=== PATIENT | female | born 1965 | race Caucasian/White ===

== ENCOUNTER 2016-11-08 00:27 | Inpatient (IN) | payer OTHER ==
[2016-11-08 00:41] LABS: Glucose,Whole Blood 124 mg/dL (75-99)
[2016-11-08] MEDS: LORazepam 2 MG/ML SYRINGE IV STA ×2 (00:45→00:48)
--- NOTE | 2016-11-08 01:23 | ED ---
Altered Mental Status HPI - General Chief Complaint: Altered Mental Status Stated Complaint: mental health Time Seen by Provider: 11/08/16 00:32 Source: patient, EMS Mode of arrival: EMS Limitations: altered mental status - History of Present Illness Initial Comments: This patient is a 51-year-old woman brought to be evaluated by EMS. EMS reports that they were called to the patient's home, by the patient's family. Family reported that they were concerned that she may have tried to commit suicide by overdose. She was reported to be not acting appropriately, being disoriented and confused. EMS reports that the patient was somewhat combative with them. They were not able to understand anything that the patient was saying and she was not following commands. Patient's family had examined her medication bottles and found that there may be 17 of the 0.5 mg Ativan tablets missing. There is currently not family present and the patient is not able to provide any additional history. MD Complaint: altered mental status, confusion -: hour(s) Consistency of Symptoms: getting worse - Related Data Allergies Allergy/AdvReac Type Severity Reaction Status Date / Time No Known Allergies Allergy Verified 11/08/16 00:50 Review of Systems ROS Statement: Those systems with pertinent positive or pertinent negative responses have been documented in the HPI. ROS Other: All systems not noted in ROS Statement are negative. Limitations: ROS unobtainable due to patients medical condition Past Medical History Past Medical History: No Reported History History of Any Multi-Drug Resistant Organisms: Unobtainable Past Surgical History: No Surgical Hx Reported Past Psychological History: Unable to Obtain Smoking Status: Unknown if ever smoked Past Alcohol Use History: Unable to Obtain Past Drug Use History: Prescription Drug Abuse General Exam Limitations: altered mental status General appearance: alert, appears intoxicated Head exam: Present: atraumatic, normocephalic, normal inspection Eye exam: Present: normal appearance, PERRL. Absent: scleral icterus, conjunctival injection ENT exam: Present: mucous membranes dry Neck exam: Present: normal inspection, full ROM. Absent: tenderness, meningismus Respiratory exam: Present: respiratory distress (Mild tachypnea). Absent: wheezes, rales, rhonchi, stridor, chest wall tenderness, accessory muscle use Cardiovascular Exam: Present: normal rhythm, tachycardia, normal heart sounds. Absent: systolic murmur, diastolic murmur, rubs, gallop GI/Abdominal exam: Present: soft. Absent: distended, tenderness, guarding, rebound, mass Extremities exam: Present: normal inspection, normal capillary refill. Absent: pedal edema, calf tenderness Back exam: Present: normal inspection. Absent: CVA tenderness (R), CVA tenderness (L), vertebral tenderness Neurological exam: Present: alert, CN II-XII intact, reflexes normal. Absent: motor sensory deficit Skin exam: Present: warm, dry, intact, normal color, rash Course Vital Signs 11/08/16 11/08/16 11/08/16 00:29 01:54 02:34 Temperature 101.3 F H Pulse Rate 114 H 134 H Respiratory 26 H 24 Rate Blood Pressure 186/118 176/99 O2 Sat by Pulse 89 L 90 L 93 L Oximetry 11/08/16 11/08/16 11/08/16 02:36 02:39 02:40 Temperature Pulse Rate 142 H 120 H 123 H Respiratory Rate Blood Pressure 204/119 O2 Sat by Pulse 89 L 75 L 56 L Oximetry 11/08/16 11/08/16 11/08/16 02:41 02:42 02:55 Temperature Pulse Rate 131 H 142 H 136 H Respiratory 16 16 Rate Blood Pressure 202/120 110/63 O2 Sat by Pulse 77 L 98 96 Oximetry 11/08/16 04:00 Temperature 100.2 F H Pulse Rate 97 Respiratory 16 Rate Blood Pressure 112/69 O2 Sat by Pulse 100 Oximetry Medical Decision Making - Lab Data Result diagrams: 11/08/16 00:44 11/08/16 00:44 Lab Results 11/08/16 11/08/16 11/08/16 Range/Units 00:34 00:44 00:44 WBC (3.8-10.6) k/uL RBC (3.80-5.40) m/uL Hgb (11.4-16.0) gm/dL Hct (34.0-46.0) % MCV (80.0-100.0) fL MCH (25.0-35.0) pg MCHC (31.0-37.0) g/dL RDW (11.5-15.5) % Plt Count (150-450) k/uL Neutrophils % % Lymphocytes % % Monocytes % % Eosinophils % % Basophils % % Neutrophils # (1.3-7.7) k/uL Lymphocytes # (1.0-4.8) k/uL Monocytes # (0-1.0) k/uL Eosinophils # (0-0.7) k/uL Basophils # (0-0.2) k/uL PT (9.0-12.0) sec INR (<1.1) APTT (22.0-30.0) sec Sample Site ABG pH (7.35-7.45) ABG pCO2 (35-45) mmHg ABG pO2 (83-108) mmHg ABG HCO3 (21-25) mmol/L ABG Total CO2 (19-24) mmol/L ABG O2 Saturation (94-97) % ABG Base Excess mmol/L FiO2 % Sodium (137-145) mmol/L Potassium (3.5-5.1) mmol/L Chloride (98-107) mmol/L Carbon Dioxide (22-30) mmol/L Anion Gap mmol/L BUN (7-17) mg/dL Creatinine (0.52-1.04) mg/dL Est GFR (MDRD) Af Amer (>60 ml/min/1.73 sqM) Est GFR (MDRD) Non-Af (>60 ml/min/1.73 sqM) Glucose (74-99) mg/dL POC Glucose (mg/dL) 124 H (75-99) mg/dL POC Glu Service Manager ID Nuris Ramos A Plasma Lactic Acid Ender (0.7-2.0) mmol/L Calcium (8.4-10.2) mg/dL Total Bilirubin (0.2-1.3) mg/dL AST (14-36) U/L ALT (9-52) U/L Alkaline Phosphatase (38-126) U/L Ammonia (<30) umol/L Total Creatine Kinase 7826 H (30-135) U/L CK-MB (CK-2) 50.1 H* (0.0-2.4) ng/mL CK-MB (CK-2) Rel Index Troponin I 0.041 H* (0.000-0.034) ng/mL NT-Pro-B Natriuret Pep pg/mL Total Protein (6.3-8.2) g/dL Albumin (3.5-5.0) g/dL Urine Color Urine Appearance (Clear) Urine pH (5.0-8.0) Ur Specific [place] (1.001-1.035) Urine Protein (Negative) Urine Glucose (UA) (Negative) Urine Ketones (Negative) Urine Blood (Negative) Urine Nitrite (Negative) Urine Bilirubin (Negative) Urine Urobilinogen (<2.0) mg/dL Ur Leukocyte Esterase (Negative) Urine RBC (0-5) /hpf Urine Opiates Screen (NotDetected) Ur Oxycodone Screen (NotDetected) Urine Methadone Screen (NotDetected) Ur Propoxyphene Screen (NotDetected) Acetaminophen ug/mL Ur Barbiturates Screen (NotDetected) U Tricyclic Antidepress (NotDetected) Ur Phencyclidine Scrn (NotDetected) Ur Amphetamines Screen (NotDetected) U Methamphetamines Scrn (NotDetected) U Benzodiazepines Scrn (NotDetected) Urine Cocaine Screen (NotDetected) U Marijuana (THC) Screen (NotDetected) Serum Alcohol mg/dL Acetone, Qual Negative (Negative) 11/08/16 11/08/16 11/08/16 Range/Units 00:44 00:44 00:44 WBC 17.7 H (3.8-10.6) k/uL RBC 4.61 (3.80-5.40) m/uL Hgb 14.6 (11.4-16.0) gm/dL Hct 44.3 (34.0-46.0) % MCV 96.2 (80.0-100.0) fL MCH 31.8 (25.0-35.0) pg MCHC 33.1 (31.0-37.0) g/dL RDW 14.0 (11.5-15.5) % Plt Count 170 (150-450) k/uL Neutrophils % 91 % Lymphocytes % 4 % Monocytes % 4 % Eosinophils % 0 % Basophils % 0 % Neutrophils # 16.1 H (1.3-7.7) k/uL Lymphocytes # 0.7 L (1.0-4.8) k/uL Monocytes # 0.8 (0-1.0) k/uL Eosinophils # 0.0 (0-0.7) k/uL Basophils # 0.0 (0-0.2) k/uL PT 11.4 (9.0-12.0) sec INR 1.1 (<1.1) APTT 22.2 (22.0-30.0) sec Sample Site ABG pH (7.35-7.45) ABG pCO2 (35-45) mmHg ABG pO2 (83-108) mmHg ABG HCO3 (21-25) mmol/L ABG Total CO2 (19-24) mmol/L ABG O2 Saturation (94-97) % ABG Base Excess mmol/L FiO2 % Sodium 147 H (137-145) mmol/L Potassium 3.9 (3.5-5.1) mmol/L Chloride 113 H (98-107) mmol/L Carbon Dioxide 17 L (22-30) mmol/L Anion Gap 17 mmol/L BUN 15 (7-17) mg/dL Creatinine 1.00 (0.52-1.04) mg/dL Est GFR (MDRD) Af Amer >60 (>60 ml/min/1.73 sqM) Est GFR (MDRD) Non-Af 58 (>60 ml/min/1.73 sqM) Glucose 125 H (74-99) mg/dL POC Glucose (mg/dL) (75-99) mg/dL POC Glu Service Manager ID Plasma Lactic Acid Ender (0.7-2.0) mmol/L Calcium 9.7 (8.4-10.2) mg/dL Total Bilirubin 0.6 (0.2-1.3) mg/dL AST 130 H (14-36) U/L ALT 52 (9-52) U/L Alkaline Phosphatase 91 (38-126) U/L Ammonia (<30) umol/L Total Creatine Kinase (30-135) U/L CK-MB (CK-2) (0.0-2.4) ng/mL CK-MB (CK-2) Rel Index Troponin I (0.000-0.034) ng/mL NT-Pro-B Natriuret Pep pg/mL Total Protein 6.9 (6.3-8.2) g/dL Albumin 4.2 (3.5-5.0) g/dL Urine Color Urine Appearance (Clear) Urine pH (5.0-8.0) Ur Specific [place] (1.001-1.035) Urine Protein (Negative) Urine Glucose (UA) (Negative) Urine Ketones (Negative) Urine Blood (Negative) Urine Nitrite (Negative) Urine Bilirubin (Negative) Urine Urobilinogen (<2.0) mg/dL Ur Leukocyte Esterase (Negative) Urine RBC (0-5) /hpf Urine Opiates Screen (NotDetected) Ur Oxycodone Screen (NotDetected) Urine Methadone Screen (NotDetected) Ur Propoxyphene Screen (NotDetected) Acetaminophen ug/mL Ur Barbiturates Screen (NotDetected) U Tricyclic Antidepress (NotDetected) Ur Phencyclidine Scrn (NotDetected) Ur Amphetamines Screen (NotDetected) U Methamphetamines Scrn (NotDetected) U Benzodiazepines Scrn (NotDetected) Urine Cocaine Screen (NotDetected) U Marijuana (THC) Screen (NotDetected) Serum Alcohol mg/dL Acetone, Qual (Negative) 11/08/16 11/08/16 11/08/16 Range/Units 00:44 01:49 01:49 WBC (3.8-10.6) k/uL RBC (3.80-5.40) m/uL Hgb (11.4-16.0) gm/dL Hct (34.0-46.0) % MCV (80.0-100.0) fL MCH (25.0-35.0) pg MCHC (31.0-37.0) g/dL RDW (11.5-15.5) % Plt Count (150-450) k/uL Neutrophils % % Lymphocytes % % Monocytes % % Eosinophils % % Basophils % % Neutrophils # (1.3-7.7) k/uL Lymphocytes # (1.0-4.8) k/uL Monocytes # (0-1.0) k/uL Eosinophils # (0-0.7) k/uL Basophils # (0-0.2) k/uL PT (9.0-12.0) sec INR (<1.1) APTT (22.0-30.0) sec Sample Site ABG pH (7.35-7.45) ABG pCO2 (35-45) mmHg ABG pO2 (83-108) mmHg ABG HCO3 (21-25) mmol/L ABG Total CO2 (19-24) mmol/L ABG O2 Saturation (94-97) % ABG Base Excess mmol/L FiO2 % Sodium (137-145) mmol/L Potassium (3.5-5.1) mmol/L Chloride (98-107) mmol/L Carbon Dioxide (22-30) mmol/L Anion Gap mmol/L BUN (7-17) mg/dL Creatinine (0.52-1.04) mg/dL Est GFR (MDRD) Af Amer (>60 ml/min/1.73 sqM) Est GFR (MDRD) Non-Af (>60 ml/min/1.73 sqM) Glucose (74-99) mg/dL POC Glucose (mg/dL) (75-99) mg/dL POC Glu Service Manager ID Plasma Lactic Acid Ender 2.2 H* (0.7-2.0) mmol/L Calcium (8.4-10.2) mg/dL Total Bilirubin (0.2-1.3) mg/dL AST (14-36) U/L ALT (9-52) U/L Alkaline Phosphatase (38-126) U/L Ammonia 12 (<30) umol/L Total Creatine Kinase (30-135) U/L CK-MB (CK-2) (0.0-2.4) ng/mL CK-MB (CK-2) Rel Index Troponin I (0.000-0.034) ng/mL NT-Pro-B Natriuret Pep 199 pg/mL Total Protein (6.3-8.2) g/dL Albumin (3.5-5.0) g/dL Urine Color Urine Appearance (Clear) Urine pH (5.0-8.0) Ur Specific [place] (1.001-1.035) Urine Protein (Negative) Urine Glucose (UA) (Negative) Urine Ketones (Negative) Urine Blood (Negative) Urine Nitrite (Negative) Urine Bilirubin (Negative) Urine Urobilinogen (<2.0) mg/dL Ur Leukocyte Esterase (Negative) Urine RBC (0-5) /hpf Urine Opiates Screen (NotDetected) Ur Oxycodone Screen (NotDetected) Urine Methadone Screen (NotDetected) Ur Propoxyphene Screen (NotDetected) Acetaminophen <10.0 ug/mL Ur Barbiturates Screen (NotDetected) U Tricyclic Antidepress (NotDetected) Ur Phencyclidine Scrn (NotDetected) Ur Amphetamines Screen (NotDetected) U Methamphetamines Scrn (NotDetected) U Benzodiazepines Scrn (NotDetected) Urine Cocaine Screen (NotDetected) U Marijuana (THC) Screen (NotDetected) Serum Alcohol mg/dL Acetone, Qual (Negative) 11/08/16 11/08/16 11/08/16 Range/Units 01:49 02:03 02:03 WBC (3.8-10.6) k/uL RBC (3.80-5.40) m/uL Hgb (11.4-16.0) gm/dL Hct (34.0-46.0) % MCV (80.0-100.0) fL MCH (25.0-35.0) pg MCHC (31.0-37.0) g/dL RDW (11.5-15.5) % Plt Count (150-450) k/uL Neutrophils % % Lymphocytes % % Monocytes % % Eosinophils % % Basophils % % Neutrophils # (1.3-7.7) k/uL Lymphocytes # (1.0-4.8) k/uL Monocytes # (0-1.0) k/uL Eosinophils # (0-0.7) k/uL Basophils # (0-0.2) k/uL PT (9.0-12.0) sec INR (<1.1) APTT (22.0-30.0) sec Sample Site ABG pH (7.35-7.45) ABG pCO2 (35-45) mmHg ABG pO2 (83-108) mmHg ABG HCO3 (21-25) mmol/L ABG Total CO2 (19-24) mmol/L ABG O2 Saturation (94-97) % ABG Base Excess mmol/L FiO2 % Sodium (137-145) mmol/L Potassium (3.5-5.1) mmol/L Chloride (98-107) mmol/L Carbon Dioxide (22-30) mmol/L Anion Gap mmol/L BUN (7-17) mg/dL Creatinine (0.52-1.04) mg/dL Est GFR (MDRD) Af Amer (>60 ml/min/1.73 sqM) Est GFR (MDRD) Non-Af (>60 ml/min/1.73 sqM) Glucose (74-99) mg/dL POC Glucose (mg/dL) (75-99) mg/dL POC Glu Service Manager ID Plasma Lactic Acid Ender (0.7-2.0) mmol/L Calcium (8.4-10.2) mg/dL Total Bilirubin (0.2-1.3) mg/dL AST (14-36) U/L ALT (9-52) U/L Alkaline Phosphatase (38-126) U/L Ammonia (<30) umol/L Total Creatine Kinase (30-135) U/L CK-MB (CK-2) (0.0-2.4) ng/mL CK-MB (CK-2) Rel Index Troponin I (0.000-0.034) ng/mL NT-Pro-B Natriuret Pep pg/mL Total Protein (6.3-8.2) g/dL Albumin (3.5-5.0) g/dL Urine Color Light Yellow Urine Appearance Clear (Clear) Urine pH 5.0 (5.0-8.0) Ur Specific [place] 1.005 (1.001-1.035) Urine Protein Negative (Negative) Urine Glucose (UA) Negative (Negative) Urine Ketones Negative (Negative) Urine Blood Trace H (Negative) Urine Nitrite Negative (Negative) Urine Bilirubin Negative (Negative) Urine Urobilinogen <2.0 (<2.0) mg/dL Ur Leukocyte Esterase Negative (Negative) Urine RBC 1 (0-5) /hpf Urine Opiates Screen Not Detected (NotDetected) Ur Oxycodone Screen Not Detected (NotDetected) Urine Methadone Screen Not Detected (NotDetected) Ur Propoxyphene Screen Not Detected (NotDetected) Acetaminophen ug/mL Ur Barbiturates Screen Not Detected (NotDetected) U Tricyclic Antidepress Detected H (NotDetected) Ur Phencyclidine Scrn Not Detected (NotDetected) Ur Amphetamines Screen Not Detected (NotDetected) U Methamphetamines Scrn Not Detected (NotDetected) U Benzodiazepines Scrn Not Detected (NotDetected) Urine Cocaine Screen Not Detected (NotDetected) U Marijuana (THC) Screen Not Detected (NotDetected) Serum Alcohol <10 mg/dL Acetone, Qual (Negative) 11/08/16 Range/Units 03:33 WBC (3.8-10.6) k/uL RBC (3.80-5.40) m/uL Hgb (11.4-16.0) gm/dL Hct (34.0-46.0) % MCV (80.0-100.0) fL MCH (25.0-35.0) pg MCHC (31.0-37.0) g/dL RDW (11.5-15.5) % Plt Count (150-450) k/uL Neutrophils % % Lymphocytes % % Monocytes % % Eosinophils % % Basophils % % Neutrophils # (1.3-7.7) k/uL Lymphocytes # (1.0-4.8) k/uL Monocytes # (0-1.0) k/uL Eosinophils # (0-0.7) k/uL Basophils # (0-0.2) k/uL PT (9.0-12.0) sec INR (<1.1) APTT (22.0-30.0) sec Sample Site rbrac ABG pH 7.25 L (7.35-7.45) ABG pCO2 44 (35-45) mmHg ABG pO2 217 H (83-108) mmHg ABG HCO3 19 L (21-25) mmol/L ABG Total CO2 20 (19-24) mmol/L ABG O2 Saturation 100.0 H (94-97) % ABG Base Excess -7.2 mmol/L FiO2 100 % Sodium (137-145) mmol/L Potassium (3.5-5.1) mmol/L Chloride (98-107) mmol/L Carbon Dioxide (22-30) mmol/L Anion Gap mmol/L BUN (7-17) mg/dL Creatinine (0.52-1.04) mg/dL Est GFR (MDRD) Af Amer (>60 ml/min/1.73 sqM) Est GFR (MDRD) Non-Af (>60 ml/min/1.73 sqM) Glucose (74-99) mg/dL POC Glucose (mg/dL) (75-99) mg/dL POC Glu Service Manager ID Plasma Lactic Acid Ender (0.7-2.0) mmol/L Calcium (8.4-10.2) mg/dL Total Bilirubin (0.2-1.3) mg/dL AST (14-36) U/L ALT (9-52) U/L Alkaline Phosphatase (38-126) U/L Ammonia (<30) umol/L Total Creatine Kinase (30-135) U/L CK-MB (CK-2) (0.0-2.4) ng/mL CK-MB (CK-2) Rel Index Troponin I (0.000-0.034) ng/mL NT-Pro-B Natriuret Pep pg/mL Total Protein (6.3-8.2) g/dL Albumin (3.5-5.0) g/dL Urine Color Urine Appearance (Clear) Urine pH (5.0-8.0) Ur Specific [place] (1.001-1.035) Urine Protein (Negative) Urine Glucose (UA) (Negative) Urine Ketones (Negative) Urine Blood (Negative) Urine Nitrite (Negative) Urine Bilirubin (Negative) Urine Urobilinogen (<2.0) mg/dL Ur Leukocyte Esterase (Negative) Urine RBC (0-5) /hpf Urine Opiates Screen (NotDetected) Ur Oxycodone Screen (NotDetected) Urine Methadone Screen (NotDetected) Ur Propoxyphene Screen (NotDetected) Acetaminophen ug/mL Ur Barbiturates Screen (NotDetected) U Tricyclic Antidepress (NotDetected) Ur Phencyclidine Scrn (NotDetected) Ur Amphetamines Screen (NotDetected) U Methamphetamines Scrn (NotDetected) U Benzodiazepines Scrn (NotDetected) Urine Cocaine Screen (NotDetected) U Marijuana (THC) Screen (NotDetected) Serum Alcohol mg/dL Acetone, Qual (Negative) - EKG Data -: EKG Interpreted by Id EKG shows normal: sinus rhythm, axis (Normal), intervals (Normal), QRS complexes (Normal), ST-T waves (Normal) Rate: tachycardia (Rate 1:15) Interpretation: other (Possible left atrial enlargement) Disposition Clinical Impression: Altered mental status, Delirium tremens Disposition: ADMITTED IP TO THIS [facility] Condition: Critical Referrals: None,Stated [Primary Care Provider] - 1-2 days
[2016-11-08 01:28] LABS: INR 1.1 (<1.1); Partial Thromboplastin Time 22.2 sec (22.0-30.0); Prothrombin Time 11.4 sec (9.0-12.0)
[2016-11-08 01:31] LABS: Basophils % (A) 0 %; CH 32.1; CHCM 33.6; Eosinophils % (A) 0 %; HCT 44.3 % (34.0-46.0); HDW 2.58; HGB 14.6 gm/dL (11.4-16.0); Luc # (Auto) 0.12; Luc % (Auto) 1; Lymphocytes # (A) 0.7 k/uL (1.0-4.8); Lymphocytes % (A) 4 %; MCH 31.8 pg (25.0-35.0); MCHC 33.1 g/dL (31.0-37.0); MCV 96.2 fL (80.0-100.0); Monocytes # (A) 0.8 k/uL (0-1.0); Monocytes % (A) 4 %; Neutrophils # (A) 16.1 k/uL (1.3-7.7); Neutrophils % (A) 91 %; RBC 4.61 m/uL (3.80-5.40); WBC 17.7 k/uL (3.8-10.6)
[2016-11-08 01:45] LABS: ALT 52 U/L (9-52); AST 130 U/L (14-36); Alkaline Phosphatase 91 U/L (38-126); Anion Gap 17 mmol/L; Blood Urea Nitrogen 15 mg/dL (7-17); Calcium 9.7 mg/dL (8.4-10.2); Carbon Dioxide 17 mmol/L (22-30); Chloride 113 mmol/L (98-107); Glucose 125 mg/dL (74-99); Non-African American GFR(MDRD) 58 (>60 ml/min/1.73 sqM); Potassium 3.9 mmol/L (3.5-5.1); Sodium 147 mmol/L (137-145); Total Bilirubin 0.6 mg/dL (0.2-1.3); Total Protein 6.9 g/dL (6.3-8.2)
--- NOTE | 2016-11-08 02:15 | XR ---
EXAM: XR Chest, 1 View CLINICAL HISTORY: Reason: altered mental status TECHNIQUE: Frontal view of the chest. COMPARISON: No relevant prior studies available. FINDINGS: Lungs: No focal pulmonary infiltrates or consolidations. Pleural space: No evidence of pneumothorax or pleural effusion. Heart: Heart size within normal limits allowing for portable supine AP chest radiograph. Apparent linear artifact projecting over the left cardiac silhouette. Mediastinum: Elongation of descending thoracic aorta. Mediastinal structures are otherwise unremarkable. Bones/joints: Imaged bony thorax is unremarkable. IMPRESSION: No evidence of acute cardiopulmonary disease.
[2016-11-08] MEDS ORDERED: LORazepam 2 MG/ML SYRINGE IV STA ×4 (02:34→03:15)
[2016-11-08] MEDS ORDERED: ETOMIDATE 2 MG/ML 10 ML VIAL IVP STA ×2 (02:37→03:14)
[2016-11-08] MEDS ORDERED: SUCCINYLCHOLINE CHLORIDE VIAL 200 MG/10 ML VIAL IV STA (02:38)
--- NOTE | 2016-11-08 02:51 | CT ---
EXAM: CT Head Without Intravenous Contrast CLINICAL HISTORY: Reason: altered mental status TECHNIQUE: Axial computed tomography images of the head/brain without intravenous contrast. CTDI is 57.4 mGy and DLP is 1116.0 mGy-cm. This CT exam was performed using one or more of the following dose reduction techniques: automated exposure control, adjustment of the mA and/or kV according to patient size, and/or use of iterative reconstruction technique. COMPARISON: No relevant prior studies available. FINDINGS: Artifacts: CT streak artifact traverses posterior aspect of head. Brain: Mild cerebral atrophy. No definite evidence of acute cerebral infarction or intracranial hemorrhage. No abnormal extra-axial collections. No significant white matter disease. No edema. Ventricles: Ventricles are of normal size and configuration. No significant mass effect or midline shift. Bones/joints: No evidence of skull fracture. Soft tissues: Unremarkable. Sinuses: Probable mucus retention cyst right frontal sinus. Imaged paranasal sinuses are otherwise unremarkable. Mastoid sinuses are clear bilaterally. Mastoid air cells: Unremarkable as visualized. No mastoid effusion. IMPRESSION: No evidence of acute intracranial abnormality.
[2016-11-08] MEDS ORDERED: PROPOFOL 500 MG in EMPTY BAG 1 BAG IV ONE (03:01)
[2016-11-08] MEDS ORDERED: SODIUM CHLORIDE 0.9% 1,000 ML IV ONE ×2 (03:01→03:03)
[2016-11-08 03:02] LABS: Creatine Kinase MB 50.1 ng/mL (0.0-2.4); Troponin I 0.041 ng/mL (0.000-0.034)
[2016-11-08 03:08] LABS: Appearance,Urine Clear (Clear); Bilirubin,Urine Negative (Negative); Glucose,Urine (UA) Negative (Negative); Ketones,Urine Negative (Negative); Leukocyte Esterase,Urine Negative (Negative); Nitrite,Urine Negative (Negative); Particle Count 934; Protein,Urine Negative (Negative); RBC,Urine 1 /hpf (0-5); Specific Gravity,Urine 1.005 (1.001-1.035); UA Billing (MACRO vs. MICRO) MICRO; Urobilinogen,Urine <2.0 mg/dL (<2.0)
--- NOTE | 2016-11-08 03:33 | XR ---
EXAM: XR Chest, 1 View CLINICAL HISTORY: Reason: Tube Placement TECHNIQUE: Frontal view of the chest. COMPARISON: Chest radiograph 11/08/2016 at 0135 hours FINDINGS: Lungs: Increasing right basilar opacity raising possibility of developing infiltrate or partial atelectasis. Lungs are otherwise clear. Pleural space: No evidence of pneumothorax or pleural effusion. Heart: Heart size is within normal limits. Mediastinum: Mediastinal structures are unremarkable. Bones/joints: Unremarkable. Tubes, lines and devices: Endotracheal tube has been placed and has its tip approximately 4.3 Cm above the flavia. IMPRESSION: Status post placement of endotracheal tube having its tip well above the flavia. Developing right basilar atelectasis or possible infiltrate.
[2016-11-08 03:50] LABS: ABG Base Excess -7.2 mmol/L; ABG HCO3 19 mmol/L (21-25); ABG PCO2 44 mmHg (35-45); ABG PH 7.25 (7.35-7.45); ABG PO2 217 mmHg (83-108); ABG TCO2 20 mmol/L (19-24)
[2016-11-08] MEDS ORDERED: NALOXONE 0.4 MG/ML 1 ML VIAL IV PRN (04:21)
[2016-11-08] MEDS ORDERED: LORazepam 2 MG/ML SYRINGE IV PRN ×5 (04:26→06:28)
[2016-11-08] MEDS ORDERED: THIAMINE 100 MG/ML 2 ML VIAL IM STA (04:26)
[2016-11-08 05:19] LABS: Glucose,Whole Blood 120 mg/dL (75-99)
[2016-11-08] MEDS ORDERED: PROPOFOL 10 MG/ML 20 ML VIAL IV SCH (06:15)
[2016-11-08 06:50] LABS: Basophils % (A) 0 %; CH 31.3; CHCM 32.3; Eosinophils # (A) 0.1 k/uL (0-0.7); Eosinophils % (A) 1 %; HCT 39.1 % (34.0-46.0); HDW 2.57; HGB 13.5 gm/dL (11.4-16.0); Luc # (Auto) 0.11; Luc % (Auto) 1; Lymphocytes # (A) 0.7 k/uL (1.0-4.8); Lymphocytes % (A) 6 %; MCH 33.8 pg (25.0-35.0); MCHC 34.6 g/dL (31.0-37.0); MCV 97.6 fL (80.0-100.0); Mean Platelet Volume 7.5; Monocytes # (A) 0.4 k/uL (0-1.0); Monocytes % (A) 4 %; Neutrophils # (A) 10.4 k/uL (1.3-7.7); Neutrophils % (A) 89 %; RBC 4.01 m/uL (3.80-5.40); RDW 13.7 % (11.5-15.5); WBC 11.6 k/uL (3.8-10.6); WBC (Perox) 12.25
[2016-11-08 07:06] LABS: Anion Gap 10 mmol/L; Blood Urea Nitrogen 15 mg/dL (7-17); Calcium 8.3 mg/dL (8.4-10.2); Carbon Dioxide 19 mmol/L (22-30); Chloride 116 mmol/L (98-107); Glucose 112 mg/dL (74-99); Non-African American GFR(MDRD) 60 (>60 ml/min/1.73 sqM); Phosphorous 4.4 mg/dL (2.5-4.5); Sodium 145 mmol/L (137-145)
--- NOTE | 2016-11-08 07:19 | XR ---
EXAMINATION TYPE: XR chest 1V DATE OF EXAM: 11/08/2016 COMPARISON: Earlier in the morning HISTORY: 51 year-old female respiratory failure on ventilator TECHNIQUE: Single frontal view of the chest is obtained. FINDINGS: ET tube remains in place. NG tube courses below the diaphragm. Heart is borderline enlarged. Diffuse interstitial densities are increased from prior. Some patchy lo wer lung densities with less confluent appearance at the right base. No significant pleural effusion seen. IMPRESSION: Cardiomegaly with increasing interstitial densities and continued patchy lower lung densities. Correl ate for CHF and early interstitial edema.
[2016-11-08 07:21] LABS: Magnesium 1.6 mg/dL (1.6-2.3)
[2016-11-08 07:24] LABS: Potassium 4.6 mmol/L (3.5-5.1)
[2016-11-08] MEDS: PROPOFOL 500 MG in EMPTY BAG 1 BAG IV SCH ×9 (08:09→23:45)
[2016-11-08] MEDS: HEPARIN SODIUM,PORCINE 5,000 UNIT/ML 1 ML VIAL SQ SCH ×2 (08:23→20:04)
[2016-11-08] MEDS: PANTOPRAZOLE 40 MG/10 ML VIAL IV SCH (08:24)
[2016-11-08 10:14] LABS: ABG HCO3 18 mmol/L (21-25); ABG PCO2 32 mmHg (35-45); ABG PH 7.36 (7.35-7.45); ABG PO2 83 mmHg (83-108); ABG TCO2 19 mmol/L (19-24)
[2016-11-08] MEDS: PIPERACILLIN-TAZOBACTAM 3.375 GM in DEXTROSE/WATER 1 50ML.BAG IVPB SCH ×2 (10:25→16:27)
[2016-11-08] MEDS: HYDROmorphone 1 MG/ML 1 ML SYRINGE IVP PRN (10:52)
--- NOTE | 2016-11-08 11:14 | P.CRDCN ---
History of Present Illness Reason for Consult (text): altered mental status History of present illness: this patient is currently intubated. History is mostly of pain from the chart. His patient was found unresponsive by the mass on the couch EMS arrived patient was initially unresponsive but subsequently she responded to the painful stimulus and C was agitated and he thinks he might have taken an overdose of Ativan. Is brought to the emergency room and subsequently patient was intubated because of the respiratory distress and possible aspiration pneumonia patient's EKG shows sinus tachycardia. Troponin was 0.014. No previous cardiac history available and there is no previous history of myocardial infarction. And currently is intubated. Being that treated for possible aspiration pneumonia. Past Medical History Past Medical History: Hypertension Additional Past Medical History / Comment(s): Depression and Anxiety. History of Any Multi-Drug Resistant Organisms: Unobtainable Past Surgical History: No Surgical Hx Reported Past Anesthesia/Blood Transfusion Reactions: No Reported Reaction Smoking Status: Former smoker Medications and Allergies Home Medications Medication Instructions Recorded Confirmed Type ARIPiprazole [Abilify] 2 mg PO DAILY 11/08/16 11/08/16 History Atenolol [Tenormin] 50 mg PO DAILY 11/08/16 11/08/16 History Fluticasone Nasal [place] [Flonase 2 spr EA NOSTRIL DAILY 11/08/16 11/08/16 History Nasal [place]] LORazepam [Ativan] 0.5 mg PO DAILY 11/08/16 11/08/16 History Lisinopril 40 mg PO DAILY 11/08/16 11/08/16 History PARoxetine HCL [Paxil] 40 mg PO DAILY 11/08/16 11/08/16 History Allergies Allergy/AdvReac Type Severity Reaction Status Date / Time No Known Allergies Allergy Verified 11/08/16 00:50 Physical Exam Vitals: Vital Signs Temp Pulse Pulse Resp BP Pulse Ox 11/08/16 10:15 93 33 H 112/64 94 L 11/08/16 10:00 98 34 H 119/70 94 L 11/08/16 09:45 102 H 32 H 135/75 95 11/08/16 09:30 104 H 33 H 131/75 96 11/08/16 09:15 106 H 35 H 127/73 96 11/08/16 09:00 108 H 36 H 120/71 96 11/08/16 08:45 101.2 F H 110 H 36 H 135/78 99 11/08/16 08:30 113 H 35 H 147/83 98 11/08/16 08:15 119 H 39 H 160/104 98 11/08/16 08:00 121 H 36 H 195/90 99 11/08/16 07:45 121 H 38 H 170/90 98 11/08/16 07:30 117 H 39 H 160/94 100 11/08/16 07:15 118 H 39 H 173/103 97 11/08/16 07:00 117 H 32 H 154/91 95 11/08/16 06:45 102 H 32 H 184/102 100 11/08/16 06:30 101 H 35 H 151/99 99 11/08/16 06:15 106 H 36 H 135/100 100 11/08/16 06:00 96 31 H 142/88 100 11/08/16 05:45 94 34 H 121/74 100 11/08/16 05:30 99.3 F 100 36 H 154/80 100 11/08/16 05:20 110 H 36 H 11/08/16 04:00 100.2 F H 97 16 112/69 100 11/08/16 02:55 136 H 110/63 96 11/08/16 02:42 142 H 16 98 11/08/16 02:41 131 H 16 202/120 77 L 11/08/16 02:40 123 H 56 L 11/08/16 02:39 120 H 75 L 11/08/16 02:36 142 H 204/119 89 L 11/08/16 02:34 134 H 93 L 11/08/16 01:54 101.3 F H 114 H 24 176/99 90 L 11/08/16 00:29 26 H 186/118 89 L Intake and Output 11/07/16 11/08/16 11/08/16 22:59 06:59 14:59 Intake Total 75 570 Output Total 275 305 Balance -200 265 Intake: IV 75 300 Sodium Chloride 0.9% @ 75 75 300 ml/hr Intake, IV Titration 270 Amount Propofol 500 mg In Empty 20 Bag 1 bag @ Titrate IV . Q0M ONE Rx#:[id number] Propofol 500 mg In Empty 250 Bag 1 bag @ Titrate IV . Q0M [facility] Rx#:[id number] Output: Urine 275 305 Other: Voiding Method Indwelling Catheter Indwelling Catheter Weight 100.6 kg vital signs are reviewed. Patient is currently intubated. Head ENT is negative. Neck is supple. No increase in jugular venous pressure noted.carotid pulses no bruits noted. Heart first and second heart sounds are normal. Lungs examinations revealed bilateral scattered wheezes. Abdomen is soft Extremities peripheral pulses since are 2+. EKG shows sinus tachycardia 6 troponin was 0.014. Results 11/08/16 06:36 11/08/16 06:30 Cardiac Enzymes 11/08/16 11/08/16 Range/Units 00:44 00:44 AST 130 H (14-36) U/L CK-MB (CK-2) 50.1 H* (0.0-2.4) ng/mL Troponin I 0.041 H* (0.000-0.034) ng/mL Coagulation 11/08/16 Range/Units 00:44 PT 11.4 (9.0-12.0) sec APTT 22.2 (22.0-30.0) sec CBC 11/08/16 11/08/16 Range/Units 00:44 06:36 WBC 17.7 H 11.6 H (3.8-10.6) k/uL RBC 4.61 4.01 (3.80-5.40) m/uL Hgb 14.6 13.5 (11.4-16.0) gm/dL Hct 44.3 39.1 (34.0-46.0) % Plt Count 170 155 (150-450) k/uL Comprehensive Metabolic Panel 11/08/16 11/08/16 Range/Units 00:44 06:30 Sodium 147 H 145 (137-145) mmol/L Potassium 3.9 4.6 (3.5-5.1) mmol/L Chloride 113 H 116 H (98-107) mmol/L Carbon Dioxide 17 L 19 L (22-30) mmol/L BUN 15 15 (7-17) mg/dL Creatinine 1.00 0.98 (0.52-1.04) mg/dL Glucose 125 H 112 H (74-99) mg/dL Calcium 9.7 8.3 L (8.4-10.2) mg/dL AST 130 H (14-36) U/L ALT 52 (9-52) U/L Alkaline Phosphatase 91 (38-126) U/L Total Protein 6.9 (6.3-8.2) g/dL Albumin 4.2 (3.5-5.0) g/dL Current Medications Generic Name Dose Route Start Last Admin Trade Name Freq PRN Reason Stop Dose Admin Acetaminophen 650 mg 11/08/16 05:53 Tylenol Tab PO Q4HR PRN Fever and/or Mild Pain Albuterol/Ipratropium 3 ml 11/08/16 04:21 Duoneb 0.5 Mg-3 Mg/3 Ml Soln INHALATION RT-Q4H PRN Shortness Of Breath Or Wheezing Heparin Sodium (Porcine) 5,000 unit 11/08/16 09:00 11/08/16 08:23 Heparin SQ 5,000 unit Q12HR [place] Administration Hydromorphone HCl 1 mg 11/08/16 09:36 Dilaudid IVP Q4HR PRN Severe Pain Propofol 500 mg/ IV Solution 50 mls @ 0 mls/hr 11/08/16 08:15 11/08/16 10:25 IV 75 mcg/kg/min .Q0M [place] 45.27 mls/hr Protocol Administration Titrate Piperacillin/Tazobactam/ 50 mls @ 12.5 mls/hr 11/08/16 09:45 11/08/16 10:25 Dextrose 3.375 gm/ IV Solution IVPB 12.5 mls/hr Q8HR [place] Administration Naloxone HCl 0.2 mg 11/08/16 04:21 Narcan IV Q2M PRN Opioid Reversal Pantoprazole Sodium 40 mg 11/08/16 09:00 11/08/16 08:24 Protonix IV 40 mg DAILY [place] Administration Thiamine HCl 100 mg 11/08/16 17:00 Vitamin B-1 PO BID@1200,1700 [place] Intake and Output 11/07/16 11/08/16 11/08/16 22:59 06:59 14:59 Intake Total 75 570 Output Total 275 305 Balance -200 265 Intake: IV 75 300 Sodium Chloride 0.9% @ 75 75 300 ml/hr Intake, IV Titration 270 Amount Propofol 500 mg In Empty 20 Bag 1 bag @ Titrate IV . Q0M [facility] Rx#:[id number] Propofol 500 mg In Empty 250 Bag 1 bag @ Titrate IV . Q0M [facility] Rx#:[id number] Output: Urine 275 305 Other: Voiding Method Indwelling Catheter Indwelling Catheter Weight 100.6 kg 11/08/16 06:36 11/08/16 06:30 EKG Interpretations (text) EKG shows sinus tachycardia. Assessment and Plan Plan: this patient is primarily admitted with a change in the mental status and possible drug overdose. Is currently intubated and is treated for aspiration pneumonia EEG shows sinus tachycardia. And additional troponin 2. And Doppler study would be done. His and there are no major cardiac issues.
[2016-11-08] MEDS: ACETAMINOPHEN TAB 325 MG TAB PO PRN (12:52)
--- NOTE | 2016-11-08 13:53 | P.HPIM ---
History of Present Illness This patient is a 51-year-old woman brought to be evaluated by EMS. EMS reports that they were called to the patient's home, by the patient's family. Family reported that they were concerned that she may have tried to commit suicide by overdose. She was reported to be not acting appropriately, being disoriented and confused. EMS reports that the patient was somewhat combative with them. Intubated and admitted to the patient and I urine drug screen is negative for benzodiazepines and other concern is patient may have used tricyclic antidepressants. Unable to get any kind of history from the patient. Patient is intubated sedated at this point of time on assist-control ventilation. Patient scores -2 at this time and patient had fever of 102 concerning his sepsis possibility being aspiration pneumonia for which patient is on Zosyn. Patient's family had examined her medication bottles and found that there may be 17 of the 0.5 mg Ativan tablets missing. y. Review of Systems Unable to obtain due to her medical condition Past Medical History Past Medical History: Hypertension Additional Past Medical History / Comment(s): Depression and Anxiety. History of Any Multi-Drug Resistant Organisms: Unobtainable Past Surgical History: No Surgical Hx Reported Past Anesthesia/Blood Transfusion Reactions: No Reported Reaction Smoking Status: Former smoker Medications and Allergies Home Medications Medication Instructions Recorded Confirmed Type ARIPiprazole [Abilify] 2 mg PO DAILY 11/08/16 11/08/16 History Atenolol [Tenormin] 50 mg PO DAILY 11/08/16 11/08/16 History Fluticasone Nasal [place] [Flonase 2 spr EA NOSTRIL DAILY 11/08/16 11/08/16 History Nasal [place]] LORazepam [Ativan] 0.5 mg PO DAILY 11/08/16 11/08/16 History Lisinopril 40 mg PO DAILY 11/08/16 11/08/16 History PARoxetine HCL [Paxil] 40 mg PO DAILY 11/08/16 11/08/16 History Allergies Allergy/AdvReac Type Severity Reaction Status Date / Time No Known Allergies Allergy Verified 11/08/16 00:50 Physical Exam Vitals: Vital Signs Temp Pulse Pulse Resp BP Pulse Ox 11/08/16 13:30 91 25 H 101/58 94 L 11/08/16 13:15 92 24 105/57 94 L 11/08/16 13:00 93 25 H 100/58 94 L 11/08/16 12:45 95 22 100/60 95 11/08/16 12:30 93 21 100/56 95 11/08/16 12:15 91 22 94/57 95 11/08/16 12:00 101.6 F H 89 23 97/55 95 11/08/16 11:45 84 24 94/56 95 11/08/16 11:30 82 23 100/56 95 11/08/16 11:15 84 23 104/59 95 11/08/16 11:00 85 30 H 106/61 95 11/08/16 10:45 87 31 H 111/60 95 11/08/16 10:30 89 32 H 110/64 95 11/08/16 10:15 93 33 H 112/64 94 L 11/08/16 10:00 98 34 H 119/70 94 L 11/08/16 09:45 102 H 32 H 135/75 95 11/08/16 09:30 104 H 33 H 131/75 96 11/08/16 09:15 106 H 35 H 127/73 96 11/08/16 09:00 108 H 36 H 120/71 96 11/08/16 08:45 101.2 F H 110 H 36 H 135/78 99 11/08/16 08:30 113 H 35 H 147/83 98 11/08/16 08:15 119 H 39 H 160/104 98 11/08/16 08:00 121 H 36 H 195/90 99 11/08/16 07:45 121 H 38 H 170/90 98 11/08/16 07:30 117 H 39 H 160/94 100 11/08/16 07:15 118 H 39 H 173/103 97 11/08/16 07:00 117 H 32 H 154/91 95 11/08/16 06:45 102 H 32 H 184/102 100 11/08/16 06:30 101 H 35 H 151/99 99 11/08/16 06:15 106 H 36 H 135/100 100 11/08/16 06:00 96 31 H 142/88 100 11/08/16 05:45 94 34 H 121/74 100 11/08/16 05:30 99.3 F 100 36 H 154/80 100 11/08/16 05:20 110 H 36 H 11/08/16 04:00 100.2 F H 97 16 112/69 100 11/08/16 02:55 136 H 110/63 96 11/08/16 02:42 142 H 16 98 11/08/16 02:41 131 H 16 202/120 77 L 11/08/16 02:40 123 H 56 L 11/08/16 02:39 120 H 75 L 11/08/16 02:36 142 H 204/119 89 L 11/08/16 02:34 134 H 93 L 11/08/16 01:54 101.3 F H 114 H 24 176/99 90 L 11/08/16 00:29 26 H 186/118 89 L Intake and Output 11/07/16 11/08/16 11/08/16 22:59 06:59 14:59 Intake Total 75 1055 Output Total 275 470 Balance -200 585 Intake: IV 75 525 Sodium Chloride 0.9% @ 75 75 525 ml/hr Intake, IV Titration 520 Amount Propofol 500 mg In Empty 170 Bag 1 bag @ Titrate IV . Q0M [facility] Rx#:[id number] Propofol 500 mg In Empty 350 Bag 1 bag @ Titrate IV . Q0M [facility] Rx#:[id number] Tube Feeding 10 Output: Urine 275 470 Other: Voiding Method Indwelling Catheter Indwelling Catheter Weight 100.6 kg 100.9 kg Patient Weight 11/09/16 06:59 Weight 100.9 kg PHYSICAL EXAMINATION: GENERAL: Patient is intubated sedated,. Well developed, well nourished. HEENT: Pupils are round and equally reacting to light. EOMI. No scleral icterus. No conjunctival pallor. Normocephalic, atraumatic. No pharyngeal erythema. No thyromegaly. CARDIOVASCULAR: S1 and S2 present. No murmurs, rubs, or gallops. PULMONARY: Chest is clear to auscultation, no wheezing or crackles. ABDOMEN: Soft, nontender, nondistended, normoactive bowel sounds. No palpable organomegaly. MUSCULOSKELETAL: No joint swelling or deformity. EXTREMITIES: No cyanosis, clubbing, or pedal edema. NEUROLOGICAL: Sedated SKIN: No rashes. Results CBC & Chem 7: 11/08/16 06:36 11/08/16 06:30 Labs: Abnormal Lab Results - Last 24 Hours (Table) 11/08/16 11/08/16 11/08/16 Range/Units 00:34 00:44 00:44 WBC 17.7 H (3.8-10.6) k/uL Neutrophils # 16.1 H (1.3-7.7) k/uL Lymphocytes # 0.7 L (1.0-4.8) k/uL ABG pH (7.35-7.45) ABG pCO2 (35-45) mmHg ABG pO2 (83-108) mmHg ABG HCO3 (21-25) mmol/L ABG O2 Saturation (94-97) % Sodium (137-145) mmol/L Chloride (98-107) mmol/L Carbon Dioxide (22-30) mmol/L Glucose (74-99) mg/dL POC Glucose (mg/dL) 124 H (75-99) mg/dL Plasma Lactic Acid Ender (0.7-2.0) mmol/L Calcium (8.4-10.2) mg/dL AST (14-36) U/L Total Creatine Kinase 7826 H (30-135) U/L CK-MB (CK-2) 50.1 H* (0.0-2.4) ng/mL Troponin I 0.041 H* (0.000-0.034) ng/mL Urine Blood (Negative) U Tricyclic Antidepress (NotDetected) 11/08/16 11/08/16 11/08/16 Range/Units 00:44 01:49 02:03 WBC (3.8-10.6) k/uL Neutrophils # (1.3-7.7) k/uL Lymphocytes # (1.0-4.8) k/uL ABG pH (7.35-7.45) ABG pCO2 (35-45) mmHg ABG pO2 (83-108) mmHg ABG HCO3 (21-25) mmol/L ABG O2 Saturation (94-97) % Sodium 147 H (137-145) mmol/L Chloride 113 H (98-107) mmol/L Carbon Dioxide 17 L (22-30) mmol/L Glucose 125 H (74-99) mg/dL POC Glucose (mg/dL) (75-99) mg/dL Plasma Lactic Acid Ender 2.2 H* (0.7-2.0) mmol/L Calcium (8.4-10.2) mg/dL AST 130 H (14-36) U/L Total Creatine Kinase (30-135) U/L CK-MB (CK-2) (0.0-2.4) ng/mL Troponin I (0.000-0.034) ng/mL Urine Blood (Negative) U Tricyclic Antidepress Detected H (NotDetected) 11/08/16 11/08/16 11/08/16 Range/Units 02:03 03:33 05:17 WBC (3.8-10.6) k/uL Neutrophils # (1.3-7.7) k/uL Lymphocytes # (1.0-4.8) k/uL ABG pH 7.25 L (7.35-7.45) ABG pCO2 (35-45) mmHg ABG pO2 217 H (83-108) mmHg ABG HCO3 19 L (21-25) mmol/L ABG O2 Saturation 100.0 H (94-97) % Sodium (137-145) mmol/L Chloride (98-107) mmol/L Carbon Dioxide (22-30) mmol/L Glucose (74-99) mg/dL POC Glucose (mg/dL) 120 H (75-99) mg/dL Plasma Lactic Acid Ender (0.7-2.0) mmol/L Calcium (8.4-10.2) mg/dL AST (14-36) U/L Total Creatine Kinase (30-135) U/L CK-MB (CK-2) (0.0-2.4) ng/mL Troponin I (0.000-0.034) ng/mL Urine Blood Trace H (Negative) U Tricyclic Antidepress (NotDetected) 11/08/16 11/08/16 11/08/16 Range/Units 06:30 06:36 10:13 WBC 11.6 H (3.8-10.6) k/uL Neutrophils # 10.4 H (1.3-7.7) k/uL Lymphocytes # 0.7 L (1.0-4.8) k/uL ABG pH (7.35-7.45) ABG pCO2 32 L (35-45) mmHg ABG pO2 (83-108) mmHg ABG HCO3 18 L (21-25) mmol/L ABG O2 Saturation (94-97) % Sodium (137-145) mmol/L Chloride 116 H (98-107) mmol/L Carbon Dioxide 19 L (22-30) mmol/L Glucose 112 H (74-99) mg/dL POC Glucose (mg/dL) (75-99) mg/dL Plasma Lactic Acid Ender (0.7-2.0) mmol/L Calcium 8.3 L (8.4-10.2) mg/dL AST (14-36) U/L Total Creatine Kinase (30-135) U/L CK-MB (CK-2) (0.0-2.4) ng/mL Troponin I (0.000-0.034) ng/mL Urine Blood (Negative) U Tricyclic Antidepress (NotDetected) 11/08/16 Range/Units 10:57 WBC (3.8-10.6) k/uL Neutrophils # (1.3-7.7) k/uL Lymphocytes # (1.0-4.8) k/uL ABG pH (7.35-7.45) ABG pCO2 (35-45) mmHg ABG pO2 (83-108) mmHg ABG HCO3 (21-25) mmol/L ABG O2 Saturation (94-97) % Sodium (137-145) mmol/L Chloride (98-107) mmol/L Carbon Dioxide (22-30) mmol/L Glucose (74-99) mg/dL POC Glucose (mg/dL) (75-99) mg/dL Plasma Lactic Acid Ender (0.7-2.0) mmol/L Calcium (8.4-10.2) mg/dL AST (14-36) U/L Total Creatine Kinase (30-135) U/L CK-MB (CK-2) (0.0-2.4) ng/mL Troponin I 0.049 H* (0.000-0.034) ng/mL Urine Blood (Negative) U Tricyclic Antidepress (NotDetected) Microbiology - Last 24 Hours (Table) 11/08/16 02:03 Urine Culture - Preliminary Urine,Catheterized Thrombosis Risk Factor Assmnt - Choose All That Apply Each Factor Represents 1 point: Age 41-60 years Each Risk Factor Represents 2 Points: Patient confined to bed Thrombosis Risk Factor Assessment Total Risk Factor Score: 3 Thrombosis Risk Factor Assessment Level: Moderate Risk Assessment and Plan Plan: Acute respiratory failure: Probably related to drug overdose, cardiorespiratory support with ventilator which is being managed by critical care services. Possible sepsis: Secondary to possible aspiration pneumonia. Patient is presently on Zosyn. Because of the diffuse infiltrate bilaterally on an echocardiogram. Hypertension: Hold off antihypertensives because of concerns of hypotension due to sepsis. Gastroesophageal reflux disease Depression and possible drug overdose, rule out suicide attempt when she is more awake and possibility of evaluation by psychiatry
--- NOTE | 2016-11-08 14:10 | P.CNPUL ---
History of Present Illness Consult date: 11/08/16 Requesting physician: Ida Aranda Reason for consult: other (Acute respiratory failure secondary to drug overdose. ) Chief complaint: mental status change History of present illness: This is a 51-year-old female with history of depression, anxiety, hypertension, patient is maintained on multiple meds including Abilify, and Paxil. She is also on lorazepam. Patient was noted by family as not acting appropriate, she was apparently found to be confused and disoriented. Family felt that the patient may have tried to commit suicide since there was evidence of 17 tablets of Ativan missing from her bottle. EMS was called, and the patient was clearly combative and restless, agitated, upon arrival to the ER, the patient was becoming more and more agitated, and she had a temp of 102. Her drug screen was only positive for tricyclics, but no evidence of any other drugs noted. While in the ER, patient had to be intubated, placed on mechanical ventilation, and transferred to the ICU early this morning. ABG post intubation showed a pO2 of 217, pCO2 of 44, pH of 7.25. Lactic acid upon admission was 2.2. Troponin was borderline elevated. WBC count was 11.6. CT of the brain showed no evidence of acute intracranial abnormality. Follow-up ABG this morning showed a pO2 of 83 pCO2 of 32 pH of 7.36. Chest x-ray showed evidence of cardiomegaly, and that she by basilar infiltrates noted as well as left perihilar infiltrate noted. Hence the possibility of aspiration is likely considered. Upon my evaluation, I adjusted the ventilator settings, I also adjusted the flow rates, tidal volumes, and the assist control rate. Patient was placed on a higher dose of propofol, and she was also placed on Dilaudid when necessary. Review of Systems ROS unobtainable: due to endotracheal tube (Cannot be obtained) Past Medical History Past Medical History: Hypertension Additional Past Medical History / Comment(s): Depression and Anxiety. History of Any Multi-Drug Resistant Organisms: Unobtainable Past Surgical History: No Surgical Hx Reported Past Anesthesia/Blood Transfusion Reactions: No Reported Reaction Smoking Status: Former smoker Medications and Allergies Home Medications Medication Instructions Recorded Confirmed Type ARIPiprazole [Abilify] 2 mg PO DAILY 11/08/16 11/08/16 History Atenolol [Tenormin] 50 mg PO DAILY 11/08/16 11/08/16 History Fluticasone Nasal [place] [Flonase 2 spr EA NOSTRIL DAILY 11/08/16 11/08/16 History Nasal [place]] LORazepam [Ativan] 0.5 mg PO DAILY 11/08/16 11/08/16 History Lisinopril 40 mg PO DAILY 11/08/16 11/08/16 History PARoxetine HCL [Paxil] 40 mg PO DAILY 11/08/16 11/08/16 History Allergies Allergy/AdvReac Type Severity Reaction Status Date / Time No Known Allergies Allergy Verified 11/08/16 00:50 Physical Exam Vitals: Vital Signs Temp Pulse Pulse Resp BP Pulse Ox 11/08/16 13:30 91 25 H 101/58 94 L 11/08/16 13:15 92 24 105/57 94 L 11/08/16 13:00 93 25 H 100/58 94 L 11/08/16 12:45 95 22 100/60 95 11/08/16 12:30 93 21 100/56 95 11/08/16 12:15 91 22 94/57 95 11/08/16 12:00 101.6 F H 89 23 97/55 95 11/08/16 11:45 84 24 94/56 95 11/08/16 11:30 82 23 100/56 95 11/08/16 11:15 84 23 104/59 95 11/08/16 11:00 85 30 H 106/61 95 11/08/16 10:45 87 31 H 111/60 95 11/08/16 10:30 89 32 H 110/64 95 11/08/16 10:15 93 33 H 112/64 94 L 11/08/16 10:00 98 34 H 119/70 94 L 11/08/16 09:45 102 H 32 H 135/75 95 11/08/16 09:30 104 H 33 H 131/75 96 11/08/16 09:15 106 H 35 H 127/73 96 11/08/16 09:00 108 H 36 H 120/71 96 11/08/16 08:45 101.2 F H 110 H 36 H 135/78 99 11/08/16 08:30 113 H 35 H 147/83 98 11/08/16 08:15 119 H 39 H 160/104 98 11/08/16 08:00 121 H 36 H 195/90 99 11/08/16 07:45 121 H 38 H 170/90 98 11/08/16 07:30 117 H 39 H 160/94 100 11/08/16 07:15 118 H 39 H 173/103 97 11/08/16 07:00 117 H 32 H 154/91 95 11/08/16 06:45 102 H 32 H 184/102 100 11/08/16 06:30 101 H 35 H 151/99 99 11/08/16 06:15 106 H 36 H 135/100 100 11/08/16 06:00 96 31 H 142/88 100 11/08/16 05:45 94 34 H 121/74 100 11/08/16 05:30 99.3 F 100 36 H 154/80 100 11/08/16 05:20 110 H 36 H 11/08/16 04:00 100.2 F H 97 16 112/69 100 11/08/16 02:55 136 H 110/63 96 11/08/16 02:42 142 H 16 98 11/08/16 02:41 131 H 16 202/120 77 L 11/08/16 02:40 123 H 56 L 11/08/16 02:39 120 H 75 L 11/08/16 02:36 142 H 204/119 89 L 11/08/16 02:34 134 H 93 L 11/08/16 01:54 101.3 F H 114 H 24 176/99 90 L 11/08/16 00:29 26 H 186/118 89 L Intake and Output 11/07/16 11/08/16 11/08/16 22:59 06:59 14:59 Intake Total 75 1055 Output Total 275 470 Balance -200 585 Intake: IV 75 525 Sodium Chloride 0.9% @ 75 75 525 ml/hr Intake, IV Titration 520 Amount Propofol 500 mg In Empty 170 Bag 1 bag @ Titrate IV . Q0M [facility] Rx#:[id number] Propofol 500 mg In Empty 350 Bag 1 bag @ Titrate IV . Q0M [facility] Rx#:[id number] Tube Feeding 10 Output: Urine 275 470 Other: Voiding Method Indwelling Catheter Indwelling Catheter Weight 100.6 kg 100.9 kg Patient Weight 11/09/16 06:59 Weight 100.9 kg GENERAL: Patient is intubated sedated,. Well developed, well nourished. Endotracheal tube is intact. HEENT: Pupils are round and equally reacting to light. EOMI. No scleral icterus. No conjunctival pallor. Normocephalic, atraumatic. No pharyngeal erythema. No thyromegaly. CARDIOVASCULAR: S1 and S2 present. No murmurs, rubs, or gallops. PULMONARY: Managed breath sounds at the bases, minimal crackles at the bases noted, no rhonchi, no wheezes. ABDOMEN: Soft, nontender, nondistended, normoactive bowel sounds. No palpable organomegaly. MUSCULOSKELETAL: No joint swelling or deformity. EXTREMITIES: No cyanosis, clubbing, or pedal edema. NEUROLOGICAL: Sedated, cannot be assessed, patient is on propofol drip. SKIN: No rashes. Results - Laboratory Findings CBC and BMP: 11/08/16 06:36 11/08/16 06:30 ABG ABG pH 7.36 (7.35-7.45) 11/08/16 10:13 ABG pCO2 32 mmHg (35-45) L 11/08/16 10:13 ABG pO2 83 mmHg (83-108) 11/08/16 10:13 ABG O2 Saturation 96.0 % (94-97) 11/08/16 10:13 PT/INR, D-dimer PT 11.4 sec (9.0-12.0) 11/08/16 00:44 INR 1.1 (<1.1) 11/08/16 00:44 Abnormal lab findings: Abnormal Labs 11/08/16 11/08/16 11/08/16 00:34 00:44 00:44 WBC 17.7 H Neutrophils # 16.1 H Lymphocytes # 0.7 L ABG pH ABG pCO2 ABG pO2 ABG HCO3 ABG O2 Saturation Sodium Chloride Carbon Dioxide Glucose POC Glucose (mg/dL) 124 H Plasma Lactic Acid Ender Calcium AST Total Creatine Kinase 7826 H CK-MB (CK-2) 50.1 H* Troponin I 0.041 H* Urine Blood U Tricyclic Antidepress 11/08/16 11/08/16 11/08/16 00:44 01:49 02:03 WBC Neutrophils # Lymphocytes # ABG pH ABG pCO2 ABG pO2 ABG HCO3 ABG O2 Saturation Sodium 147 H Chloride 113 H Carbon Dioxide 17 L Glucose 125 H POC Glucose (mg/dL) Plasma Lactic Acid Ender 2.2 H* Calcium AST 130 H Total Creatine Kinase CK-MB (CK-2) Troponin I Urine Blood U Tricyclic Antidepress Detected H 11/08/16 11/08/16 11/08/16 02:03 03:33 05:17 WBC Neutrophils # Lymphocytes # ABG pH 7.25 L ABG pCO2 ABG pO2 217 H ABG HCO3 19 L ABG O2 Saturation 100.0 H Sodium Chloride Carbon Dioxide Glucose POC Glucose (mg/dL) 120 H Plasma Lactic Acid Ender Calcium AST Total Creatine Kinase CK-MB (CK-2) Troponin I Urine Blood Trace H U Tricyclic Antidepress 11/08/16 11/08/16 11/08/16 06:30 06:36 10:13 WBC 11.6 H Neutrophils # 10.4 H Lymphocytes # 0.7 L ABG pH ABG pCO2 32 L ABG pO2 ABG HCO3 18 L ABG O2 Saturation Sodium Chloride 116 H Carbon Dioxide 19 L Glucose 112 H POC Glucose (mg/dL) Plasma Lactic Acid Ender Calcium 8.3 L AST Total Creatine Kinase CK-MB (CK-2) Troponin I Urine Blood U Tricyclic Antidepress 11/08/16 10:57 WBC Neutrophils # Lymphocytes # ABG pH ABG pCO2 ABG pO2 ABG HCO3 ABG O2 Saturation Sodium Chloride Carbon Dioxide Glucose POC Glucose (mg/dL) Plasma Lactic Acid Ender Calcium AST Total Creatine Kinase CK-MB (CK-2) Troponin I 0.049 H* Urine Blood U Tricyclic Antidepress - Diagnostic Findings Chest x-ray: image reviewed (Suspicious for possible aspiration pneumonia.) Assessment and Plan Plan: Impression: 1 Acute hypoxic respiratory failure requiring intubation and mechanical ventilation. 2 strongly suspect aspiration pneumonia patient was placed on Zosyn. 3 suspected drug overdose possibly tricyclics, further history will need to be obtained from the family, and further assessment of the bottles of Paxil at home. 4 acute mental status change with fever, hence I will recommend infectious disease consultation, I'm not certain at this point whether a lumbar puncture would be necessary. In the meantime continue Zosyn. 5 history of depression and anxiety. 6 history of hypertension. Recommendation: Continue present course of antibiotics, mechanical ventilation support, nutritional support, GI and DVT prophylaxis, and we will follow closely. We'll try to get more information about her history from family members. Discussed the patient's condition with the admitting physician. Time with Patient: Greater than 30
--- NOTE | 2016-11-08 15:20 | CDI ---
In responding to this query, please exercise your independent professional judgment. The [facility] Coding Staff and Clinical Documentation Specialists appreciate your assistance in clarifying documentation, maintaining compliance with coding guidelines, accurately documenting patients condition and capturing severity of illness. The fact that a question is asked does not imply that any particular answer is desired or expected. Communication forms are a method of clarifying documentation and are not made part of the Legal Health Record. Thank you in advance for your clarification. Last Revision, July 2015 Jessi Pedroza [address] [facility] [place] [address] Documentation Clarification Form Date: 11/08/2016 3:04:00 PM From: Desi Truong RN, CCDS Admit Date: 11/08/2016 4:21:00 AM Patient Name: Dolores Dykes Visit Number: [id number] Dr. Ida Aranda Altered mental status was documented in the H&P and Progress Notes and requires further specificity. Patient history/risk factors: Aspiration Pneumonia, Medication Overdose Clinical Indicators: 11/08 H&P: "Family reported that they were concerned that she may have tried to commit suicide by overdose. She was reported to be not acting appropriately, being disoriented and confused. EMS reports that the patient was somewhat combative \\with them. Patient scores -2 at this time and patient had fever of 102 concerning his sepsis possibility being aspiration pneumonia for which patient is on Zosyn. Patient's family had examined her medication bottles and found that there may be 17 of the 0.5 mg Ativan tablets missing. " 11/08 Pulmonary Consult: "Acute mental status change with fever, hence I will recommend infectious disease consultation." Labs: WBC 17.7/11.6, Neutrophils 16.1/10.4, Venous Lactic Acid 2.2, Total CK 7826, CKMB 50.1, + TCA's CXR: Cardiomegly, Correlate for CHF and interstitial edema CT Brain: Neg Treatment: IV Zosyn 2l IVF Bolus Ativan CIWA Protocol Intubated In your professional opinion, please clarify the etiology of the altered mental status, if known. Encephalopathy (specify Type and Underlying Medical Illness) Dementia (if know, specify Type and if with/without Behavioral Disturbance) Other condition (please specify) Unable to determine Please document in your progress notes and discharge summary in order to capture severity of illness and risk of mortality. Include clinical findings that support your diagnosis. FYI: Press F11 to launch patient chart. ___x__ Place X here if this finding has no clinical significance, is not applicable or if you are not able to provide any additional documentation. LUIS A
[2016-11-08] MEDS: THIAMINE 100 MG TAB PO SCH (16:27)
[2016-11-08] MEDS ORDERED: Magnesium Replacement Protocol 1 EACH MISC MISCELLANE PRN (18:24)
[2016-11-08] MEDS: MAGNESIUM SULFATE-D5W PMX 1 GM in DEXTROSE/WATER 1 100ML.BAG IVPB SCH ×2 (18:35→20:04)
[2016-11-08] MEDS: SODIUM CHLORIDE 0.9% 1,000 ML IV SCH (18:41)
[2016-11-08] MEDS ORDERED: ONDANSETRON 4 MG/2 ML VIAL IVP PRN (20:04)
--- NOTE | 2016-11-08 22:37 | P.CONS ---
History of Present Illness - Reason for Consult Consult date: 11/08/16 - Chief Complaint altered mental status - History of Present Illness 51-year-old female who appears older than her stated age presents to Hospital when EMS was called. The secondary transformation relates that she apparently was not acting like herself and was quite obtunded for several days. Because she was not improving EMS was called. She was intubated in the field because of her poor mental status. She was brought to our facility where she remains intubated sedated and mechanically ventilated. The daughter who comes to visit relates that she has had episodes of prior drug overdose or suicide attempts. She was wondering what her alcohol level was at admission. If any other drugs were found. She does not control her current medication list but would not be surprised if she was on try cyclic medications. Without other drugs would have more likely been involved. She does not relate that her mother uses injection drugs. Is a tobacco smoker. Review of Systems ROS unobtainable: due to endotracheal tube Past Medical History Past Medical History: Hypertension Additional Past Medical History / Comment(s): Depression and Anxiety. History of Any Multi-Drug Resistant Organisms: Unobtainable Past Surgical History: No Surgical Hx Reported Past Anesthesia/Blood Transfusion Reactions: No Reported Reaction Smoking Status: Former smoker Medications and Allergies Home Medications and Allergies Comment(s): Current Medications Acetaminophen (Tylenol Tab) 650 mg PO Q4HR PRN PRN Reason: Fever and/or Mild Pain Last Admin: 11/08/16 12:52 Dose: 650 mg Albuterol/Ipratropium (Duoneb 0.5 Mg-3 Mg/3 Ml Soln) 3 ml INHALATION RT-Q4H PRN PRN Reason: Shortness Of Breath Or Wheezing Heparin Sodium (Porcine) (Heparin) 5,000 unit SQ Q12HR [place] Last Admin: 11/08/16 20:04 Dose: 5,000 unit Hydromorphone HCl (Dilaudid) 1 mg IVP Q4HR PRN PRN Reason: Severe Pain Last Admin: 11/08/16 10:52 Dose: 1 mg Propofol 500 mg/ IV Solution 50 mls @ 0 mls/hr IV .Q0M [place]; Titrate PRN Reason: Protocol Last Admin: 11/08/16 21:04 Dose: 50 mcg/kg/min, 30.18 mls/hr Piperacillin/Tazobactam/ (Dextrose 3.375 gm/ IV Solution) 50 mls @ 12.5 mls/hr IVPB Q8HR [facility] Last Admin: 11/08/16 16:27 Dose: 12.5 mls/hr Sodium Chloride (Saline 0.9%) 1,000 mls @ 75 mls/hr IV .[id number] [facility] Last Admin: 11/08/16 18:41 Dose: 75 mls/hr Miscellaneous Information (Magnesium Per Protocol) 1 each MISCELLANE DAILY PRN ; Protocol PRN Reason: Per Protocol Naloxone HCl (Narcan) 0.2 mg IV Q2M PRN PRN Reason: Opioid Reversal Ondansetron HCl (Zofran) 4 mg IVP Q6HR PRN PRN Reason: Nausea And Vomiting Pantoprazole Sodium (Protonix) 40 mg IV DAILY [facility] Last Admin: 11/08/16 08:24 Dose: 40 mg Thiamine HCl (Vitamin B-1) 100 mg PO BID@1200,1700 [facility] Last Admin: 11/08/16 16:27 Dose: 100 mg Home Medications Medication Instructions Recorded Confirmed Type ARIPiprazole [Abilify] 2 mg PO DAILY 11/08/16 11/08/16 History Atenolol [Tenormin] 50 mg PO DAILY 11/08/16 11/08/16 History Fluticasone Nasal [place] [Flonase 2 spr EA NOSTRIL DAILY 11/08/16 11/08/16 History Nasal [place]] LORazepam [Ativan] 0.5 mg PO DAILY 11/08/16 11/08/16 History Lisinopril 40 mg PO DAILY 11/08/16 11/08/16 History PARoxetine HCL [Paxil] 40 mg PO DAILY 11/08/16 11/08/16 History Allergies Allergy/AdvReac Type Severity Reaction Status Date / Time No Known Allergies Allergy Verified 11/08/16 00:50 Physical Exam Vitals: Vital Signs Temp Pulse Pulse Resp BP Pulse Ox 11/08/16 22:00 71 23 103/61 96 11/08/16 21:45 71 25 H 103/61 96 11/08/16 21:30 74 25 H 101/59 96 11/08/16 21:15 74 22 104/59 96 11/08/16 21:00 77 24 106/60 95 07/03/17 20:45 78 23 103/57 95 07/03/17 20:30 78 26 H 101/59 95 07/03/17 20:15 80 24 106/61 95 07/03/17 20:00 98.9 F 85 23 110/66 96 07/03/17 19:45 78 20 113/64 95 07/03/17 19:30 80 20 114/67 96 07/03/17 19:15 78 18 111/67 96 07/03/17 19:00 76 20 116/67 96 07/03/17 18:45 98.3 F 75 21 111/68 96 07/03/17 18:30 78 21 112/68 96 07/03/17 18:15 77 21 112/67 96 07/03/17 18:00 77 20 113/69 96 07/03/17 17:45 79 22 113/68 95 07/03/17 17:30 81 19 115/66 95 07/03/17 17:15 81 21 114/67 95 07/03/17 17:00 82 23 110/67 95 07/03/17 16:45 81 21 110/66 95 07/03/17 16:30 82 20 109/67 95 07/03/17 16:15 83 21 110/65 95 07/03/17 16:00 84 22 109/64 95 07/03/17 15:45 84 24 116/59 95 07/03/17 15:30 86 24 111/61 95 07/03/17 15:15 86 22 107/62 95 07/03/17 15:00 85 25 H 107/61 95 07/03/17 14:45 86 23 106/64 95 07/03/17 14:30 89 23 106/63 95 07/03/17 14:15 90 24 109/59 95 07/03/17 14:00 100.7 F H 89 21 106/60 94 L 07/03/17 13:45 91 24 102/64 94 L 07/03/17 13:30 91 25 H 101/58 94 L 07/03/17 13:15 92 24 105/57 94 L 07/03/17 13:00 93 25 H 100/58 94 L 07/03/17 12:45 95 22 100/60 95 07/03/17 12:30 93 21 100/56 95 07/03/17 12:15 91 22 94/57 95 11/08/16 12:00 101.6 F H 89 23 97/55 95 11/08/16 11:45 84 24 94/56 95 11/08/16 11:30 82 23 100/56 95 11/08/16 11:15 84 23 104/59 95 11/08/16 11:00 85 30 H 106/61 95 11/08/16 10:45 87 31 H 111/60 95 11/08/16 10:30 89 32 H 110/64 95 11/08/16 10:15 93 33 H 112/64 94 L 11/08/16 10:00 98 34 H 119/70 94 L 11/08/16 09:45 102 H 32 H 135/75 95 11/08/16 09:30 104 H 33 H 131/75 96 11/08/16 09:15 106 H 35 H 127/73 96 11/08/16 09:00 108 H 36 H 120/71 96 11/08/16 08:45 101.2 F H 110 H 36 H 135/78 99 11/08/16 08:30 113 H 35 H 147/83 98 11/08/16 08:15 119 H 39 H 160/104 98 11/08/16 08:00 121 H 36 H 195/90 99 11/08/16 07:45 121 H 38 H 170/90 98 11/08/16 07:30 117 H 39 H 160/94 100 11/08/16 07:15 118 H 39 H 173/103 97 11/08/16 07:00 117 H 32 H 154/91 95 11/08/16 06:45 102 H 32 H 184/102 100 11/08/16 06:30 101 H 35 H 151/99 99 11/08/16 06:15 106 H 36 H 135/100 100 11/08/16 06:00 96 31 H 142/88 100 11/08/16 05:45 94 34 H 121/74 100 11/08/16 05:30 99.3 F 100 36 H 154/80 100 11/08/16 05:20 110 H 36 H 11/08/16 04:00 100.2 F H 97 16 112/69 100 11/08/16 02:55 136 H 110/63 96 11/08/16 02:42 142 H 16 98 11/08/16 02:41 131 H 16 202/120 77 L 11/08/16 02:40 123 H 56 L 11/08/16 02:39 120 H 75 L 11/08/16 02:36 142 H 204/119 89 L 11/08/16 02:34 134 H 93 L 11/08/16 01:54 101.3 F H 114 H 24 176/99 90 L 11/08/16 00:29 26 H 186/118 89 L Intake and Output 11/08/16 11/08/16 11/08/16 06:59 14:59 22:59 Intake Total 75 1190 1335.21 Output Total 275 510 520 Balance -200 680 815.21 Intake: IV 75 600 800 Magnesium Sulfate-D5w Pmx 200 1 gm In Dextrose/Water 1 100ml.bag @ 100 mls/hr IVPB Q1H [facility] Rx#: [id number] Sodium Chloride 0.9% @ 75 75 600 600 ml/hr Intake, IV Titration 570 385.21 Amount Propofol 500 mg In Empty 220 200 Bag 1 bag @ Titrate IV . Q0M [facility] Rx#:[id number] Propofol 500 mg In Empty 350 185.21 Bag 1 bag @ Titrate IV . Q0M [facility] Rx#:[id number] Tube Feeding 20 120 Other 30 Output: Urine 275 510 500 Emesis 20 Other: Voiding Method Indwelling Catheter Indwelling Catheter Indwelling Catheter # Bowel Movements 0 Weight 100.6 kg 100.9 kg Patient Weight 11/09/16 06:59 Weight 100.9 kg 51-year-old woman who appears much HEENT: Anicteric conjunctiva are pink and moist nasal mucosa grossly intact without significant lesions, there is no thrush.her on the endotr tube Neck: The neck is supple without significant lymphadenopathy or thyromegaly. Lungs: symmetrical air entry without significant crackles or wheezing. There is no significant bronchial sounds. There is no egophony or dullness. Heart: Regular rate and rhythm with an audible S1-S2, no S3 no S4. There is no significant murmur click or rub, PMI was nondisplaced. Abdomen: mildly obese,Positive bowel sounds soft nonrigid without palpable masses or organomegaly. Extremities: The upper extremities have excellent pulses they are symmetric, no significant petechiae or telangiectasia. No splinter hemorrhages were noted. The lower extremities are free from significant edema. The peripheral pulses were 2+ and symmetric. Neuro: sedated and mechanically ventilated. Minimal response to stimulation Results CBC & Chem 7: 11/08/16 06:36 11/08/16 06:30 Labs: Abnormal Lab Results - Last 24 Hours (Table) 11/08/16 11/08/16 11/08/16 Range/Units 00:34 00:44 00:44 WBC 17.7 H (3.8-10.6) k/uL Neutrophils # 16.1 H (1.3-7.7) k/uL Lymphocytes # 0.7 L (1.0-4.8) k/uL ABG pH (7.35-7.45) ABG pCO2 (35-45) mmHg ABG pO2 (83-108) mmHg ABG HCO3 (21-25) mmol/L ABG O2 Saturation (94-97) % Sodium (137-145) mmol/L Chloride (98-107) mmol/L Carbon Dioxide (22-30) mmol/L Glucose (74-99) mg/dL POC Glucose (mg/dL) 124 H (75-99) mg/dL Plasma Lactic Acid Ender (0.7-2.0) mmol/L Calcium (8.4-10.2) mg/dL AST (14-36) U/L Total Creatine Kinase 7826 H (30-135) U/L CK-MB (CK-2) 50.1 H* (0.0-2.4) ng/mL Troponin I 0.041 H* (0.000-0.034) ng/mL Urine Blood (Negative) U Tricyclic Antidepress (NotDetected) 11/08/16 11/08/16 11/08/16 Range/Units 00:44 01:49 02:03 WBC (3.8-10.6) k/uL Neutrophils # (1.3-7.7) k/uL Lymphocytes # (1.0-4.8) k/uL ABG pH (7.35-7.45) ABG pCO2 (35-45) mmHg ABG pO2 (83-108) mmHg ABG HCO3 (21-25) mmol/L ABG O2 Saturation (94-97) % Sodium 147 H (137-145) mmol/L Chloride 113 H (98-107) mmol/L Carbon Dioxide 17 L (22-30) mmol/L Glucose 125 H (74-99) mg/dL POC Glucose (mg/dL) (75-99) mg/dL Plasma Lactic Acid Ender 2.2 H* (0.7-2.0) mmol/L Calcium (8.4-10.2) mg/dL AST 130 H (14-36) U/L Total Creatine Kinase (30-135) U/L CK-MB (CK-2) (0.0-2.4) ng/mL Troponin I (0.000-0.034) ng/mL Urine Blood (Negative) U Tricyclic Antidepress Detected H (NotDetected) 11/08/16 11/08/16 11/08/16 Range/Units 02:03 03:33 05:17 WBC (3.8-10.6) k/uL Neutrophils # (1.3-7.7) k/uL Lymphocytes # (1.0-4.8) k/uL ABG pH 7.25 L (7.35-7.45) ABG pCO2 (35-45) mmHg ABG pO2 217 H (83-108) mmHg ABG HCO3 19 L (21-25) mmol/L ABG O2 Saturation 100.0 H (94-97) % Sodium (137-145) mmol/L Chloride (98-107) mmol/L Carbon Dioxide (22-30) mmol/L Glucose (74-99) mg/dL POC Glucose (mg/dL) 120 H (75-99) mg/dL Plasma Lactic Acid Ender (0.7-2.0) mmol/L Calcium (8.4-10.2) mg/dL AST (14-36) U/L Total Creatine Kinase (30-135) U/L CK-MB (CK-2) (0.0-2.4) ng/mL Troponin I (0.000-0.034) ng/mL Urine Blood Trace H (Negative) U Tricyclic Antidepress (NotDetected) 11/08/16 11/08/16 11/08/16 Range/Units 06:30 06:36 10:13 WBC 11.6 H (3.8-10.6) k/uL Neutrophils # 10.4 H (1.3-7.7) k/uL Lymphocytes # 0.7 L (1.0-4.8) k/uL ABG pH (7.35-7.45) ABG pCO2 32 L (35-45) mmHg ABG pO2 (83-108) mmHg ABG HCO3 18 L (21-25) mmol/L ABG O2 Saturation (94-97) % Sodium (137-145) mmol/L Chloride 116 H (98-107) mmol/L Carbon Dioxide 19 L (22-30) mmol/L Glucose 112 H (74-99) mg/dL POC Glucose (mg/dL) (75-99) mg/dL Plasma Lactic Acid Ender (0.7-2.0) mmol/L Calcium 8.3 L (8.4-10.2) mg/dL AST (14-36) U/L Total Creatine Kinase (30-135) U/L CK-MB (CK-2) (0.0-2.4) ng/mL Troponin I (0.000-0.034) ng/mL Urine Blood (Negative) U Tricyclic Antidepress (NotDetected) 11/08/16 11/08/16 Range/Units 10:57 16:38 WBC (3.8-10.6) k/uL Neutrophils # (1.3-7.7) k/uL Lymphocytes # (1.0-4.8) k/uL ABG pH (7.35-7.45) ABG pCO2 (35-45) mmHg ABG pO2 (83-108) mmHg ABG HCO3 (21-25) mmol/L ABG O2 Saturation (94-97) % Sodium (137-145) mmol/L Chloride (98-107) mmol/L Carbon Dioxide (22-30) mmol/L Glucose (74-99) mg/dL POC Glucose (mg/dL) (75-99) mg/dL Plasma Lactic Acid Ender (0.7-2.0) mmol/L Calcium (8.4-10.2) mg/dL AST (14-36) U/L Total Creatine Kinase (30-135) U/L CK-MB (CK-2) (0.0-2.4) ng/mL Troponin I 0.049 H* 0.035 H* (0.000-0.034) ng/mL Urine Blood (Negative) U Tricyclic Antidepress (NotDetected) Microbiology - Last 24 Hours (Table) 11/08/16 03:20 Gram Stain - Preliminary Sputum Sputum Culture - Preliminary 11/08/16 02:03 Urine Culture - Preliminary Urine,Catheterized Laboratory Results WBC 11.6 k/uL (3.8-10.6) H 11/08/16 06:36 RBC 4.01 m/uL (3.80-5.40) 11/08/16 06:36 Hgb 13.5 gm/dL (11.4-16.0) 11/08/16 06:36 Hct 39.1 % (34.0-46.0) 11/08/16 06:36 MCV 97.6 fL (80.0-100.0) 11/08/16 06:36 MCH 33.8 pg (25.0-35.0) 11/08/16 06:36 MCHC 34.6 g/dL (31.0-37.0) 11/08/16 06:36 RDW 13.7 % (11.5-15.5) 11/08/16 06:36 Plt Count 155 k/uL (150-450) 11/08/16 06:36 Neutrophils % 89 % 11/08/16 06:36 Lymphocytes % 6 % 11/08/16 06:36 Monocytes % 4 % 11/08/16 06:36 Eosinophils % 1 % 11/08/16 06:36 Basophils % 0 % 11/08/16 06:36 Neutrophils # 10.4 k/uL (1.3-7.7) H 11/08/16 06:36 Lymphocytes # 0.7 k/uL (1.0-4.8) L 11/08/16 06:36 Monocytes # 0.4 k/uL (0-1.0) 11/08/16 06:36 Eosinophils # 0.1 k/uL (0-0.7) 11/08/16 06:36 Basophils # 0.0 k/uL (0-0.2) 11/08/16 06:36 PT 11.4 sec (9.0-12.0) 11/08/16 00:44 INR 1.1 (<1.1) 11/08/16 00:44 APTT 22.2 sec (22.0-30.0) 11/08/16 00:44 Sample Site rrad 11/08/16 10:13 ABG pH 7.36 (7.35-7.45) 11/08/16 10:13 ABG pCO2 32 mmHg (35-45) L 11/08/16 10:13 ABG pO2 83 mmHg (83-108) 11/08/16 10:13 ABG HCO3 18 mmol/L (21-25) L 11/08/16 10:13 ABG Total CO2 19 mmol/L (19-24) 11/08/16 10:13 ABG O2 Saturation 96.0 % (94-97) 11/08/16 10:13 ABG Base Excess -7.0 mmol/L 11/08/16 10:13 FiO2 50 % 11/08/16 10:13 Sodium 145 mmol/L (137-145) 11/08/16 06:30 Potassium 4.6 mmol/L (3.5-5.1) 11/08/16 06:30 Chloride 116 mmol/L (98-107) H 11/08/16 06:30 Carbon Dioxide 19 mmol/L (22-30) L 11/08/16 06:30 Anion Gap 10 mmol/L 11/08/16 06:30 BUN 15 mg/dL (7-17) 11/08/16 06:30 Creatinine 0.98 mg/dL (0.52-1.04) 11/08/16 06:30 Est GFR (MDRD) Af Amer >60 (>60 ml/min/1.73 sqM) 11/08/16 06:30 Est GFR (MDRD) Non-Af 60 (>60 ml/min/1.73 sqM) 11/08/16 06:30 Glucose 112 mg/dL (74-99) H 11/08/16 06:30 POC Glucose (mg/dL) 120 mg/dL (75-99) H 11/08/16 05:17 POC Glu Bus Operator ID Mika, Naida 11/08/16 05:17 Plasma Lactic Acid Ender 0.9 mmol/L (0.7-2.0) 11/08/16 16:38 Calcium 8.3 mg/dL (8.4-10.2) L 11/08/16 06:30 Phosphorus 4.4 mg/dL (2.5-4.5) 11/08/16 06:30 Magnesium 1.6 mg/dL (1.6-2.3) 11/08/16 06:30 Total Bilirubin 0.6 mg/dL (0.2-1.3) 11/08/16 00:44 AST 130 U/L (14-36) H 11/08/16 00:44 ALT 52 U/L (9-52) 11/08/16 00:44 Alkaline Phosphatase 91 U/L (38-126) 11/08/16 00:44 Ammonia 12 umol/L (<30) 11/08/16 01:49 Total Creatine Kinase 7826 U/L (30-135) H 11/08/16 00:44 CK-MB (CK-2) 50.1 ng/mL (0.0-2.4) H* 11/08/16 00:44 CK-MB (CK-2) Rel Index 11/08/16 00:44 Troponin I 0.035 ng/mL (0.000-0.034) H* 11/08/16 16:38 NT-Pro-B Natriuret Pep 199 pg/mL 11/08/16 00:44 Total Protein 6.9 g/dL (6.3-8.2) 11/08/16 00:44 Albumin 4.2 g/dL (3.5-5.0) 11/08/16 00:44 Urine Color Light Yellow 11/08/16 02:03 Urine Appearance Clear (Clear) 11/08/16 02:03 Urine pH 5.0 (5.0-8.0) 11/08/16 02:03 Ur Specific [place] 1.005 (1.001-1.035) 11/08/16 02:03 Urine Protein Negative (Negative) 11/08/16 02:03 Urine Glucose (UA) Negative (Negative) 11/08/16 02:03 Urine Ketones Negative (Negative) 11/08/16 02:03 Urine Blood Trace (Negative) H 11/08/16 02:03 Urine Nitrite Negative (Negative) 11/08/16 02:03 Urine Bilirubin Negative (Negative) 11/08/16 02:03 Urine Urobilinogen <2.0 mg/dL (<2.0) 11/08/16 02:03 Ur Leukocyte Esterase Negative (Negative) 11/08/16 02:03 Urine RBC 1 /hpf (0-5) 11/08/16 02:03 Urine Opiates Screen Not Detected (NotDetected) 11/08/16 02:03 Ur Oxycodone Screen Not Detected (NotDetected) 11/08/16 02:03 Urine Methadone Screen Not Detected (NotDetected) 11/08/16 02:03 Ur Propoxyphene Screen Not Detected (NotDetected) 11/08/16 02:03 Acetaminophen <10.0 ug/mL 11/08/16 01:49 Ur Barbiturates Screen Not Detected (NotDetected) 11/08/16 02:03 U Tricyclic Antidepress Detected (NotDetected) H 11/08/16 02:03 Ur Phencyclidine Scrn Not Detected (NotDetected) 11/08/16 02:03 Ur Amphetamines Screen Not Detected (NotDetected) 11/08/16 02:03 U Methamphetamines Scrn Not Detected (NotDetected) 11/08/16 02:03 U Benzodiazepines Scrn Not Detected (NotDetected) 11/08/16 02:03 Urine Cocaine Screen Not Detected (NotDetected) 11/08/16 02:03 U Marijuana (THC) Screen Not Detected (NotDetected) 11/08/16 02:03 Serum Alcohol <10 mg/dL 11/08/16 01:49 Acetone, Qual Negative (Negative) 11/08/16 00:44 Microbiology 11/08/16 03:20 Sputum Gram Stain - Preliminary 11/08/16 03:20 Sputum Sputum Culture - Preliminary 11/08/16 02:03 Urine,Catheterized Urine Culture - Preliminary Assessment and Plan (1) Altered mental status Narrative/Plan: 51-year-old woman who presents to Hospital when EMS was called because of altered mental status for several days. He has noted she required intubation in the field because of her altered mental status. The patient has had fever. As noted has abnormal chest x-ray. Likely had an aspiration event in the field. Antibiotic therapy with Zosyn has been started as an adequate choice at this point in time. Family is unable to relate any known prior infections. Would not enhance antibiotic therapy further at this time especially based on the sputum Gram stain. We'll continue ongoing supportive care. Fortunately the family does seem to be somewhat engaged to may be helpful in determining the next steps in her overall care. Again they were very surprised that other drugs are not found in her drug screen and there was no alcohol. We'll need to monitor for delirium tremens. Nutritional support as already started. Nursing felt of the skin evaluation and no obvious breakdown is seen at this time. She suddenly is at risk for wounds and rhabdomyolysis, CK is only minimally elevated. She's being followed. Prognosis is however poor. Status: Acute
[2016-11-09] MEDS: PIPERACILLIN-TAZOBACTAM 3.375 GM in DEXTROSE/WATER 1 50ML.BAG IVPB SCH ×4 (00:20→23:59)
[2016-11-09] MEDS: PROPOFOL 500 MG in EMPTY BAG 1 BAG IV SCH ×4 (02:34→08:24)
[2016-11-09] MEDS: HYDROmorphone 1 MG/ML 1 ML SYRINGE IVP PRN ×3 (04:30→23:58)
[2016-11-09 04:39] LABS: Basophils % (A) 0 %; CH 31.3; Eosinophils # (A) 0.1 k/uL (0-0.7); Eosinophils % (A) 1 %; HDW 2.61; HGB 11.9 gm/dL (11.4-16.0); Luc # (Auto) 0.05; Luc % (Auto) 1; Lymphocytes # (A) 0.7 k/uL (1.0-4.8); Lymphocytes % (A) 8 %; MCH 32.5 pg (25.0-35.0); MCV 98.4 fL (80.0-100.0); Mean Platelet Volume 8.3; Monocytes # (A) 0.2 k/uL (0-1.0); Monocytes % (A) 2 %; Neutrophils # (A) 8.2 k/uL (1.3-7.7); Neutrophils % (A) 88 %; RBC 3.66 m/uL (3.80-5.40); RDW 13.8 % (11.5-15.5); WBC 9.3 k/uL (3.8-10.6); WBC (Perox) 9.39
[2016-11-09 04:52] LABS: ALT 51 U/L (9-52); AST 86 U/L (14-36); Alkaline Phosphatase 78 U/L (38-126); Anion Gap 9 mmol/L; Blood Urea Nitrogen 15 mg/dL (7-17); Calcium 8.1 mg/dL (8.4-10.2); Carbon Dioxide 20 mmol/L (22-30); Chloride 112 mmol/L (98-107); Glucose 106 mg/dL (74-99); Magnesium 2.4 mg/dL (1.6-2.3); Non-African American GFR(MDRD) >60 (>60 ml/min/1.73 sqM); Phosphorous 2.9 mg/dL (2.5-4.5); Potassium 3.7 mmol/L (3.5-5.1); Sodium 141 mmol/L (137-145); Total Bilirubin 0.4 mg/dL (0.2-1.3); Total Protein 5.4 g/dL (6.3-8.2)
[2016-11-09] MEDS: SODIUM CHLORIDE 0.9% 1,000 ML IV SCH ×4 (04:54→18:53)
[2016-11-09] MEDS ORDERED: Potassium Replacement Protocol 1 EACH MISC MISCELLANE PRN (05:32)
[2016-11-09] MEDS ORDERED: POTASSIUM CHLORIDE ORAL LIQUID 40 MEQ/30 ML CUP NG-TUBE SCH (06:00)
[2016-11-09 07:12] LABS: ABG HCO3 19 mmol/L (21-25); ABG PCO2 35 mmHg (35-45); ABG PH 7.36 (7.35-7.45); ABG PO2 100 mmHg (83-108); ABG TCO2 20 mmol/L (19-24)
--- NOTE | 2016-11-09 07:32 | XR ---
EXAMINATION TYPE: XR chest 1V DATE OF EXAM: 11/09/2016 COMPARISON: Yesterday HISTORY: Respiratory failure TECHNIQUE: Single frontal view of the chest is obtained. FINDINGS: Heart is enlarged. Endotracheal tube is in good position. There is mild pulmonary vascular congestion. There is slight blunting of left costophrenic angle. There is probably infiltrate in the left lower lobe. Nasogastric tube appears in good position. There are chest leads. IMPRESSION: There is increasing infiltrate in the left lower lobe compared to yesterday. Mild conges tive heart failure.
[2016-11-09] MEDS: PANTOPRAZOLE 40 MG/10 ML VIAL IV SCH (08:02)
[2016-11-09] MEDS: HEPARIN SODIUM,PORCINE 5,000 UNIT/ML 1 ML VIAL SQ SCH ×2 (08:03→21:03)
[2016-11-09] MEDS ORDERED: SODIUM CHLORIDE 0.9% 500 ML IV ONE ×2 (08:47→10:15)
[2016-11-09] MEDS ORDERED: CHLORHEXIDINE GLUCONATE 15 ML CUP MUCOUS MEM SCH (09:00)
--- NOTE | 2016-11-09 10:34 | P.PN ---
Subjective Principal diagnosis: Acute respiratory status failure secondary to drug overdose. This is a 51-year-old female with history of depression, anxiety, hypertension, patient is maintained on multiple meds including Abilify, and Paxil. She is also on lorazepam. Patient was noted by family as not acting appropriate, she was apparently found to be confused and disoriented. Family felt that the patient may have tried to commit suicide since there was evidence of 17 tablets of Ativan missing from her bottle. EMS was called, and the patient was clearly combative and restless, agitated, upon arrival to the ER, the patient was becoming more and more agitated, and she had a temp of 102. Her drug screen was only positive for tricyclics, but no evidence of any other drugs noted. While in the ER, patient had to be intubated, placed on mechanical ventilation, and transferred to the ICU early this morning. ABG post intubation showed a pO2 of 217, pCO2 of 44, pH of 7.25. Lactic acid upon admission was 2.2. Troponin was borderline elevated. WBC count was 11.6. CT of the brain showed no evidence of acute intracranial abnormality. Follow-up ABG this morning showed a pO2 of 83 pCO2 of 32 pH of 7.36. Chest x-ray showed evidence of cardiomegaly, and that she by basilar infiltrates noted as well as left perihilar infiltrate noted. Hence the possibility of aspiration is likely considered. Upon my evaluation, I adjusted the ventilator settings, I also adjusted the flow rates, tidal volumes, and the assist control rate. Patient was placed on a higher dose of propofol, and she was also placed on Dilaudid when necessary. Patient was reevaluated today on 11/2016, remains on mechanical ventilations, vent settings were unchanged from yesterday. Patient was earlier on propofol which I have discontinued, and chest x-ray reviewed and there is evidence of left lower lobe pneumonia, right-sided infiltrate has cleared. Labs were all reviewed. CBC is relatively normal. ABG showed a pO2 of 100 pCO2 of 35 pH of 7.36. Bicarb is 19. Renal profile is normal. Liver profile is relatively normal. Troponin is borderline elevated. Weaning parameters were also reviewed hence I will likely extubated the patient after a short trial of pressure support and CPAP. Objective - Vital Signs Vital signs: Vital Signs Temp 98.3 F 11/09/16 08:00 Pulse 78 07/04/17 10:00 Resp 18 11/09/16 10:00 BP 119/68 11/09/16 10:00 Pulse Ox 98 11/09/16 10:00 Intake & Output 11/08/16 11/09/16 11/09/16 18:59 06:59 18:59 Intake Total 1840 5778.788 9158.322 Output Total 790 530 95 Balance 1050 1106.855 997.322 Weight 100.9 kg 100.3 kg Intake: IV 900 1100 150 Magnesium Sulfate-D5w Pmx 200 1 gm In Dextrose/Water 1 100ml.bag @ 100 mls/hr IVPB Q1H [facility] Rx#: [id number] Sodium Chloride 0.9% @ 75 900 900 150 ml/hr Intake, IV Titration 870 276.855 862.322 Amount Piperacillin-Tazobactam 3 50 .375 gm In Dextrose/Water 1 50ml.bag @ 12.5 mls/hr IVPB Q8HR [facility] Rx#: [id number] Propofol 500 mg In Empty 420 Bag 1 bag @ Titrate IV . Q0M [facility] Rx#:[id number] Propofol 500 mg In Empty 450 276.855 62.322 Bag 1 bag @ Titrate IV . Q0M [facility] Rx#:[id number] Sodium Chloride 0.9% 1, 250 000 ml @ 125 mls/hr IV . Q8H [facility] Rx#:[id number] Sodium Chloride 0.9% 500 500 ml @ 999 mls/hr IV .Q31M [facility] Rx#:[id number] Tube Feeding 70 170 50 Other 90 30 Output: Urine 790 510 95 Emesis 20 Other: Voiding Method Indwelling Catheter Indwelling Catheter Indwelling Catheter # Bowel Movements 0 0 - Exam GENERAL: Patient is intubated sedated,. Well developed, well nourished. Endotracheal tube is intact. HEENT: Pupils are round and equally reacting to light. EOMI. No scleral icterus. No conjunctival pallor. Normocephalic, atraumatic. No pharyngeal erythema. No thyromegaly. CARDIOVASCULAR: S1 and S2 present. No murmurs, rubs, or gallops. PULMONARY: Managed breath sounds at the bases, minimal crackles at the bases noted, no rhonchi, no wheezes. ABDOMEN: Soft, nontender, nondistended, normoactive bowel sounds. No palpable organomegaly. MUSCULOSKELETAL: No joint swelling or deformity. EXTREMITIES: No cyanosis, clubbing, or pedal edema. NEUROLOGICAL: After holding the propofol, patient was noted to be arousable, appropriate, following all instructions, in no form of distress. No focal neurologic deficit was noted. - Labs CBC & Chem 7: 11/09/16 04:13 11/09/16 04:13 Labs: Abnormal Lab Results - Last 24 Hours (Table) 11/08/16 11/08/16 11/09/16 Range/Units 10:57 16:38 04:13 RBC 3.66 L (3.80-5.40) m/uL Plt Count 132 L (150-450) k/uL Neutrophils # 8.2 H (1.3-7.7) k/uL Lymphocytes # 0.7 L (1.0-4.8) k/uL ABG HCO3 (21-25) mmol/L ABG O2 Saturation (94-97) % Chloride (98-107) mmol/L Carbon Dioxide (22-30) mmol/L Glucose (74-99) mg/dL Calcium (8.4-10.2) mg/dL Magnesium (1.6-2.3) mg/dL AST (14-36) U/L Troponin I 0.049 H* 0.035 H* (0.000-0.034) ng/mL Total Protein (6.3-8.2) g/dL Albumin (3.5-5.0) g/dL 11/09/16 11/09/16 Range/Units 04:13 07:11 RBC (3.80-5.40) m/uL Plt Count (150-450) k/uL Neutrophils # (1.3-7.7) k/uL Lymphocytes # (1.0-4.8) k/uL ABG HCO3 19 L (21-25) mmol/L ABG O2 Saturation 98.0 H (94-97) % Chloride 112 H (98-107) mmol/L Carbon Dioxide 20 L (22-30) mmol/L Glucose 106 H (74-99) mg/dL Calcium 8.1 L (8.4-10.2) mg/dL Magnesium 2.4 H (1.6-2.3) mg/dL AST 86 H (14-36) U/L Troponin I (0.000-0.034) ng/mL Total Protein 5.4 L (6.3-8.2) g/dL Albumin 2.9 L (3.5-5.0) g/dL Microbiology - Last 24 Hours (Table) 11/08/16 01:49 Blood Culture - Preliminary Blood No Growth after 24 hours 11/08/16 03:20 Gram Stain - Preliminary Sputum Sputum Culture - Preliminary 11/08/16 02:03 Urine Culture - Preliminary Urine,Catheterized Assessment and Plan Plan: Impression: 1 Acute hypoxic respiratory failure requiring intubation and mechanical ventilation. 2 strongly suspect aspiration pneumonia patient was placed on Zosyn. 3 suspected drug overdose possibly tricyclics, further history will need to be obtained from the family, and further assessment of the bottles of Paxil at home. 4 acute mental status change improved based on examination this morning. 5 history of depression and anxiety. 6 history of hypertension. Recommendation: Patient will be kept off propofol, patient will be given a short pressure support and CPAP trial, pressure support will be at 8. If tolerated, patient will be extubated and will be placed on nasal cannula. In the meantime continue GI and DVT prophylaxis. Psychiatric consultation. Continue antibiotics and bronchodilators. Patient will be kept in the ICU and she will be kept on suicidal precautions. Critical care time is 32 minutes. Time with Patient: Greater than 30
[2016-11-09] MEDS: THIAMINE 100 MG TAB PO SCH ×2 (12:15→17:26)
--- NOTE | 2016-11-09 12:46 | P.PN ---
Subjective Principal diagnosis: altered mental status 1-year-old female who appears older than her stated age presents to Hospital when EMS was called. The secondary transformation relates that she apparently was not acting like herself and was quite obtunded for several days. Because she was not improving EMS was called. She was intubated in the field because of her poor mental status. She was brought to our facility where she remains intubated sedated and mechanically ventilated. The daughter who comes to visit relates that she has had episodes of prior drug overdose or suicide attempts. She was wondering what her alcohol level was at admission. If any other drugs were found. She does not control her current medication list but would not be surprised if she was on try cyclic medications. Without other drugs would have more likely been involved. She does not relate that her mother uses injection drugs. Is a tobacco smoker. Now extubated has difficulty with voice but is able to speak. Objective - Vital Signs Vital signs: Vital Signs Temp 99.3 F 11/09/16 12:00 Pulse 80 11/09/16 12:00 Resp 21 11/09/16 12:00 BP 149/80 11/09/16 12:00 Pulse Ox 98 11/09/16 12:00 Intake & Output 11/08/16 11/09/16 11/09/16 18:59 06:59 18:59 Intake Total 1840 3451.813 9894.322 Output Total 790 530 155 Balance 1050 8840.477 6159.322 Weight 100.9 kg 100.3 kg Intake: IV 900 1100 150 Magnesium Sulfate-D5w Pmx 200 1 gm In Dextrose/Water 1 100ml.bag @ 100 mls/hr IVPB Q1H [facility] Rx#: [id number] Sodium Chloride 0.9% @ 75 900 900 150 ml/hr Intake, IV Titration 870 338.487 6936.322 Amount Piperacillin-Tazobactam 3 50 .375 gm In Dextrose/Water 1 50ml.bag @ 12.5 mls/hr IVPB Q8HR [facility] Rx#: [id number] Propofol 500 mg In Empty 420 Bag 1 bag @ Titrate IV . Q0M [facility] Rx#:[id number] Propofol 500 mg In Empty 450 276.855 62.322 Bag 1 bag @ Titrate IV . Q0M [facility] Rx#:[id number] Sodium Chloride 0.9% 1, 500 000 ml @ 125 mls/hr IV . Q8H [facility] Rx#:[id number] Sodium Chloride 0.9% 500 500 ml @ 999 mls/hr IV .Q31M [facility] Rx#:[id number] Sodium Chloride 0.9% 500 500 ml @ 999 mls/hr IV .Q31M [facility] Rx#:[id number] Tube Feeding 70 170 50 Other 90 30 Output: Urine 790 510 155 Emesis 20 Other: Voiding Method Indwelling Catheter Indwelling Catheter Indwelling Catheter # Bowel Movements 0 0 - Exam 51-year-old woman who appears much oleder than stated age HEENT: Anicteric conjunctiva are pink and moist nasal mucosa grossly intact without significant lesions, there is no thrush.her on the endotr tube Neck: The neck is supple without significant lymphadenopathy or thyromegaly. Lungs: symmetrical air entry without significant crackles or wheezing. There is no significant bronchial sounds. There is no egophony or dullness. Heart: Regular rate and rhythm with an audible S1-S2, no S3 no S4. There is no significant murmur click or rub, PMI was nondisplaced. Abdomen: mildly obese,Positive bowel sounds soft nonrigid without palpable masses or organomegaly. Extremities: The upper extremities have excellent pulses they are symmetric, no significant petechiae or telangiectasia. No splinter hemorrhages were noted. The lower extremities are free from significant edema. The peripheral pulses were 2+ and symmetric. Neuro: extubated no longer sedated. able to follow commands - Labs CBC & Chem 7: 11/09/16 04:13 11/09/16 04:13 Labs: Abnormal Lab Results - Last 24 Hours (Table) 11/08/16 11/09/16 11/09/16 Range/Units 16:38 04:13 04:13 RBC 3.66 L (3.80-5.40) m/uL Plt Count 132 L (150-450) k/uL Neutrophils # 8.2 H (1.3-7.7) k/uL Lymphocytes # 0.7 L (1.0-4.8) k/uL ABG HCO3 (21-25) mmol/L ABG O2 Saturation (94-97) % Chloride 112 H (98-107) mmol/L Carbon Dioxide 20 L (22-30) mmol/L Glucose 106 H (74-99) mg/dL Calcium 8.1 L (8.4-10.2) mg/dL Magnesium 2.4 H (1.6-2.3) mg/dL AST 86 H (14-36) U/L Troponin I 0.035 H* (0.000-0.034) ng/mL Total Protein 5.4 L (6.3-8.2) g/dL Albumin 2.9 L (3.5-5.0) g/dL 11/09/16 Range/Units 07:11 RBC (3.80-5.40) m/uL Plt Count (150-450) k/uL Neutrophils # (1.3-7.7) k/uL Lymphocytes # (1.0-4.8) k/uL ABG HCO3 19 L (21-25) mmol/L ABG O2 Saturation 98.0 H (94-97) % Chloride (98-107) mmol/L Carbon Dioxide (22-30) mmol/L Glucose (74-99) mg/dL Calcium (8.4-10.2) mg/dL Magnesium (1.6-2.3) mg/dL AST (14-36) U/L Troponin I (0.000-0.034) ng/mL Total Protein (6.3-8.2) g/dL Albumin (3.5-5.0) g/dL Microbiology - Last 24 Hours (Table) 11/08/16 02:03 Urine Culture - Final Urine,Catheterized 11/08/16 01:49 Blood Culture - Preliminary Blood No Growth after 24 hours 11/08/16 03:20 Gram Stain - Preliminary Sputum Sputum Culture - Preliminary Microbiology 11/08/16 02:03 Urine,Catheterized Urine Culture - Final 11/08/16 01:49 Blood Blood Culture - Preliminary No Growth after 24 hours 11/08/16 03:20 Sputum Gram Stain - Preliminary 11/08/16 03:20 Sputum Sputum Culture - Preliminary Assessment and Plan (1) Altered mental status Narrative/Plan: 51-year-old woman who presents to Hospital when EMS was called because of altered mental status for several days. He has noted she required intubation in the field because of her altered mental status. The patient has had fever. As noted has abnormal chest x-ray. Likely had an aspiration event in the field. Antibiotic therapy with Zosyn has been started as an adequate choice at this point in time. Family is unable to relate any known prior infections. Would not enhance antibiotic therapy further at this time especially based on the sputum Gram stain. We'll continue ongoing supportive care. Fortunately the family does seem to be somewhat engaged to may be helpful in determining the next steps in her overall care. WBC has improved She is at risk for wounds and rhabdomyolysis, CK is only mildly elevated. She 's being followed. Is improved today, but still confused Status: Acute
--- NOTE | 2016-11-09 13:15 | P.CNNES ---
History of Present Illness Consult date: 11/08/16 Requesting physician: Tashia Peng Reason for Consult: Altered mental status Chief complaint: Altered mental status History of Present Illness: The patient is a 51-year-old female who is being evaluated by the neurology service today on 11/08/16 per the request of Dr. Peng for altered mental status. The patient was brought into [facility] emergency room after her family noticed that she was not acting like her usual self. There was also concern for possible medication overdose. The patient has history of previous suicide attempt. According to the chart, several pills of Ativan were missing, but her urine drug screen was negative for benzodiazepine. When EMS arrived, the patient was combative. In the emergency room, the patient started having respiratory difficulties and she was intubated and sedated and admitted to the intensive care unit. A computed tomography scan of the brain was done which showed generalized atrophy. Her CBC showed mild leukocytosis at 11.6. Her basic metabolic profile and urinalysis were normal. Her urine drug screen was only positive for tricyclic antidepressants. Her cardiac enzymes were elevated with a CPK of 7820, CK-MB of 50.1, and troponin of 0.041. The patient does have a history of all call abuse according to the nursing staff. At the time of my evaluation, the patient is intubated and sedated in the intensive care unit. No seizure-like activity has been reported. The patient is also being followed by pulmonology who are treating the patient for possible aspiration pneumonia. Review of system: Unable to obtain as the patient is sedated and intubated. Past Medical History Past Medical History: Hypertension Additional Past Medical History / Comment(s): Depression and Anxiety. History of Any Multi-Drug Resistant Organisms: Unobtainable Past Surgical History: No Surgical Hx Reported Past Anesthesia/Blood Transfusion Reactions: No Reported Reaction Smoking Status: Former smoker Past Alcohol Use History: Daily Medications and Allergies Home Medications Medication Instructions Recorded Confirmed Type ARIPiprazole [Abilify] 2 mg PO DAILY 11/08/16 11/08/16 History Atenolol [Tenormin] 50 mg PO DAILY 11/08/16 11/08/16 History Fluticasone Nasal [place] [Flonase 2 spr EA NOSTRIL DAILY 11/08/16 11/08/16 History Nasal Benn[place]] LORazepam [Ativan] 0.5 mg PO DAILY 11/08/16 11/08/16 History Lisinopril 40 mg PO DAILY 11/08/16 11/08/16 History PARoxetine HCL [Paxil] 40 mg PO DAILY 11/08/16 11/08/16 History Allergies Allergy/AdvReac Type Severity Reaction Status Date / Time No Known Allergies Allergy Verified 11/08/16 00:50 Physical Examination - Vital Signs Vital Signs: Vital Signs Temp Pulse Resp BP Pulse Ox 11/09/16 12:00 99.3 F 80 21 149/80 98 11/09/16 11:00 78 25 H 147/96 93 L 11/09/16 10:00 78 18 119/68 98 11/09/16 09:00 69 16 112/63 99 11/09/16 08:00 98.3 F 70 20 121/77 98 11/09/16 07:00 73 24 122/74 98 11/09/16 06:30 66 24 118/69 99 11/09/16 06:00 69 22 122/74 98 11/09/16 05:30 66 19 107/64 98 11/09/16 05:00 70 21 109/72 98 11/09/16 04:30 71 24 118/69 97 11/09/16 04:00 98.0 F 77 26 H 116/64 96 11/09/16 03:30 79 29 H 118/75 87 L 11/09/16 03:00 84 26 H 119/67 98 11/09/16 02:30 67 26 H 107/61 97 11/09/16 02:15 69 24 110/61 97 11/09/16 02:00 72 19 113/65 97 11/09/16 01:45 75 25 H 107/63 97 11/09/16 01:30 71 25 H 108/63 97 11/09/16 01:15 69 18 108/62 97 11/09/16 01:00 69 22 108/63 98 11/09/16 00:45 69 24 108/62 97 11/09/16 00:30 70 23 108/64 97 11/09/16 00:15 69 25 H 104/63 97 11/09/16 00:00 70 25 H 107/62 97 11/08/16 23:45 71 25 H 105/62 97 11/08/16 23:30 73 21 103/58 97 07/03/17 23:15 72 24 105/61 96 07/03/17 23:09 77 23 105/61 96 07/03/17 23:00 98.8 F 75 14 107/60 95 07/03/17 22:45 98.8 F 71 23 103/60 96 07/03/17 22:30 70 24 100/59 96 07/03/17 22:15 70 25 H 105/60 96 07/03/17 22:00 71 23 103/61 96 07/03/17 21:45 71 25 H 103/61 96 07/03/17 21:30 74 25 H 101/59 96 07/03/17 21:15 74 22 104/59 96 07/03/17 21:00 77 24 106/60 95 07/03/17 20:45 78 23 103/57 95 /03/17 20:30 78 26 H 101/59 95 /03/17 20:15 80 24 106/61 95 07/03/17 20:00 98.9 F 85 23 110/66 96 07/03/17 19:45 78 20 113/64 95 07/03/17 19:30 80 20 114/67 96 07/03/17 19:15 78 18 111/67 96 07/03/17 19:00 76 20 116/67 96 07/03/17 18:45 98.3 F 75 21 111/68 96 07/03/17 18:30 78 21 112/68 96 07/03/17 18:15 77 21 112/67 96 07/03/17 18:00 77 20 113/69 96 07/03/17 17:45 79 22 113/68 95 07/03/17 17:30 81 19 115/66 95 07/03/17 17:15 81 21 114/67 95 07/03/17 17:00 82 23 110/67 95 07/03/17 16:45 81 21 110/66 95 07/03/17 16:30 82 20 109/67 95 07/03/17 16:15 83 21 110/65 95 07/03/17 16:00 84 22 109/64 95 07/03/17 15:45 84 24 116/59 95 07/03/17 15:30 86 24 111/61 95 07/03/17 15:15 86 22 107/62 95 07/03/17 15:00 85 25 H 107/61 95 11/08/16 14:45 86 23 106/64 95 11/08/16 14:30 89 23 106/63 95 11/08/16 14:15 90 24 109/59 95 11/08/16 14:00 100.7 F H 89 21 106/60 94 L 11/08/16 13:45 91 24 102/64 94 L 11/08/16 13:30 91 25 H 101/58 94 L 11/08/16 13:15 92 24 105/57 94 L Intake and Output 11/08/16 11/09/16 11/09/16 22:59 06:59 14:59 Intake Total 1385.21 731.271 6149.322 Output Total 520 290 155 Balance 865.21 059.067 1300.322 Intake: IV 800 600 150 Magnesium Sulfate-D5w Pmx 200 1 gm In Dextrose/Water 1 100ml.bag @ 100 mls/hr IVPB Q1H [facility] Rx#: [id number] Sodium Chloride 0.9% @ 75 600 600 150 ml/hr Intake, IV Titration 435.21 269.827 5640.322 Amount Piperacillin-Tazobactam 3 50 .375 gm In Dextrose/Water 1 50ml.bag @ 12.5 mls/hr IVPB Q8HR [facility] Rx#: [id number] Propofol 500 mg In Empty 200 Bag 1 bag @ Titrate IV . Q0M [facility] Rx#:[id number] Propofol 500 mg In Empty 235.21 141.645 62.322 Bag 1 bag @ Titrate IV . Q0M [facility] Rx#:[id number] Sodium Chloride 0.9% 1, 500 000 ml @ 125 mls/hr IV . Q8H [facility] Rx#:[id number] Sodium Chloride 0.9% 500 500 ml @ 999 mls/hr IV .Q31M [facility] Rx#:[id number] Sodium Chloride 0.9% 500 500 ml @ 999 mls/hr IV .Q31M [facility] Rx#:[id number] Tube Feeding 120 100 50 Other 30 60 30 Output: Urine 500 290 155 Emesis 20 0 Other: Voiding Method Indwelling Catheter Indwelling Catheter Indwelling Catheter # Bowel Movements 0 0 0 Weight 100.3 kg - Constitutional General appearance: obese - EENT EENT: PERRL, other (Endotracheal tube is intact.) - Cardiovascular Cardiovascular: regular rate Extremities: non-pitting edema - Gastrointestinal Gastrointestinal: soft, tender, non-distended - Neurologic The patient is sedated. She does not withdrawal from any painful stimuli. She does not respond to any verbal stimuli. Plantar reflexes show downgoing toes bilaterally. Pupillary reflex and corneal reflex are intact. No seizure-like activity is seen. - Psychiatric The patient is sedated. Results - Laboratory Findings CBC and BMP: 11/09/16 04:13 11/09/16 12:07 Abnormal Lab Findings: Abnormal Labs 11/08/16 11/08/16 11/08/16 00:34 00:44 00:44 WBC 17.7 H RBC Plt Count Neutrophils # 16.1 H Lymphocytes # 0.7 L ABG pH ABG pCO2 ABG pO2 ABG HCO3 ABG O2 Saturation Sodium Chloride Carbon Dioxide Glucose POC Glucose (mg/dL) 124 H Plasma Lactic Acid Ender Calcium Magnesium AST Total Creatine Kinase 7826 H CK-MB (CK-2) 50.1 H* Troponin I 0.041 H* Total Protein Albumin Urine Blood U Tricyclic Antidepress 11/08/16 11/08/16 11/08/16 00:44 01:49 02:03 WBC RBC Plt Count Neutrophils # Lymphocytes # ABG pH ABG pCO2 ABG pO2 ABG HCO3 ABG O2 Saturation Sodium 147 H Chloride 113 H Carbon Dioxide 17 L Glucose 125 H POC Glucose (mg/dL) Plasma Lactic Acid Ender 2.2 H* Calcium Magnesium AST 130 H Total Creatine Kinase CK-MB (CK-2) Troponin I Total Protein Albumin Urine Blood U Tricyclic Antidepress Detected H 11/08/16 11/08/16 11/08/16 02:03 03:33 05:17 WBC RBC Plt Count Neutrophils # Lymphocytes # ABG pH 7.25 L ABG pCO2 ABG pO2 217 H ABG HCO3 19 L ABG O2 Saturation 100.0 H Sodium Chloride Carbon Dioxide Glucose POC Glucose (mg/dL) 120 H Plasma Lactic Acid Ender Calcium Magnesium AST Total Creatine Kinase CK-MB (CK-2) Troponin I Total Protein Albumin Urine Blood Trace H U Tricyclic Antidepress 11/08/16 11/08/16 11/08/16 06:30 06:36 10:13 WBC 11.6 H RBC Plt Count Neutrophils # 10.4 H Lymphocytes # 0.7 L ABG pH ABG pCO2 32 L ABG pO2 ABG HCO3 18 L ABG O2 Saturation Sodium Chloride 116 H Carbon Dioxide 19 L Glucose 112 H POC Glucose (mg/dL) Plasma Lactic Acid Ender Calcium 8.3 L Magnesium AST Total Creatine Kinase CK-MB (CK-2) Troponin I Total Protein Albumin Urine Blood U Tricyclic Antidepress 11/08/16 11/08/16 11/09/16 10:57 16:38 04:13 WBC RBC 3.66 L Plt Count 132 L Neutrophils # 8.2 H Lymphocytes # 0.7 L ABG pH ABG pCO2 ABG pO2 ABG HCO3 ABG O2 Saturation Sodium Chloride Carbon Dioxide Glucose POC Glucose (mg/dL) Plasma Lactic Acid Ender Calcium Magnesium AST Total Creatine Kinase CK-MB (CK-2) Troponin I 0.049 H* 0.035 H* Total Protein Albumin Urine Blood U Tricyclic Antidepress 11/09/16 11/09/16 04:13 07:11 WBC RBC Plt Count Neutrophils # Lymphocytes # ABG pH ABG pCO2 ABG pO2 ABG HCO3 19 L ABG O2 Saturation 98.0 H Sodium Chloride 112 H Carbon Dioxide 20 L Glucose 106 H POC Glucose (mg/dL) Plasma Lactic Acid Ender Calcium 8.1 L Magnesium 2.4 H AST 86 H Total Creatine Kinase CK-MB (CK-2) Troponin I Total Protein 5.4 L Albumin 2.9 L Urine Blood U Tricyclic Antidepress - Diagnostic Findings Comments: Computed tomography scan of the brain was reviewed, showing only generalized atrophy with no acute findings. Assessment and Plan (1) Respiratory failure Status: Acute (2) Cardiac abnormality Status: Acute (3) Acute encephalopathy Status: Acute (4) Medication overdose Status: Acute (5) History of alcohol abuse Status: Chronic (6) Altered mental status Status: Acute Plan: The patient's altered mental status is likely due to multifactorial encephalopathy. She may be suffering aspiration pneumonia but there is also concern for medication overdose as mentioned above. Pulmonology is following the patient and she is on IV antibiotics. An EEG has been ordered. At this time, a thorough neurological examination cannot be obtained due to her intubation and sedation. The patient does have a history of all, all abuse. Continue neuro checks for signs of delirium tremens/alcohol withdrawals. I do recommend a cardiology consultation regarding her elevated cardiac enzymes. Prognosis is guarded. I will continue to follow with you. Further recommendations to follow. Thank you for allowing me to participate in the care of your patient. If you have any questions, please feel free to contact me. Time with Patient: Greater than 30
--- NOTE | 2016-11-09 13:49 | P.CN ---
Psychiatric Consult - . Consult date: 11/09/16 Consult:: DATE OF SERVICE: [11/09/2016] IDENTIFYING DATA: This patient is a 51-year-old female who was admitted to ICU for unresponsiveness was intubated until 2 hours ago.. HISTORY OF PRESENT ILLNESS: Psychiatric consult was ordered due to the report that family members thought she had made an overdose which was the cause of her unresponsiveness. The history states that the family thought she had taken more pills of her Ativan but her urine drug screen was negative for benzodiazepines and alcohol. Attempted to get history from patient it was very difficult to understand her after just being extubated. But she did state she had made a suicide attempt, she endorsed feeling depressed, but denied suicidal ideation now. When asked what she took she reported that she had 2 bottles of vodka, her UDS was negative for etoh. Asked her what today's date was she was able to say it was 2016, and that we were in [place], asked who the sap portal consultant was, she was unable to answer. Later began to talk about 7 marriages of Kacy Pretty. This appears to be tangentially connected to [employer]. [employer]. She was noted to be pulling at the bed sheet, nurse noted that she was pulling out her IVs. UDS was negative, no ETOH, no benzo, MSE: Awake, alert, oriented to self, 2016, [place]. Speech was almost inaudible, unable to understand most of her words. Circumstantial/tangential thought process, with inability to keep on subject. No auditory/visual hallucinations Mood dysphoric, affect full range, decreased intensity. Denies suicidal ideation At this point patient still appears to be delirious. Delirium, multiple causes Depression, unspecified Suicide attempt Plan: Continue to treat medical causes of delirium. Does not need sitter for suicide ideation but for delirium. Will reassess tomorrow. 11/09/16 13:44 11/09/16 13:51
--- NOTE | 2016-11-09 13:56 | P.PN ---
Subjective Principal diagnosis: altered mental status The patient is doing much better today. She has been extubated and is quite awake alert and following commands appropriately. She does complain of a mild frontal headache. She does have history of headaches and she denies any changes in her usual quality of headache. Her chest x-ray didn't show evidence of left lower lobe pneumonia. She is still on IV antibiotics and is being followed by pulmonology and infectious disease. She denies any lateralizing numbness or weakness. I did have a lengthy discussion with the patient regarding the reason for her admission. She denies any suicide attempt and denies overusing her medications. Her CBC today was normal except for thrombocytopenia at 132,000. Her leukocytosis has resolved. Objective - Vital Signs Vital signs: Vital Signs Temp 99.3 F 11/09/16 12:00 Pulse 88 11/09/16 13:00 Resp 26 H 11/09/16 13:00 BP 165/95 11/09/16 13:00 Pulse Ox 96 11/09/16 13:00 Intake & Output 11/08/16 11/09/16 11/09/16 18:59 06:59 18:59 Intake Total 1840 4872.289 7812.322 Output Total 790 530 155 Balance 1050 8845.768 1382.322 Weight 100.9 kg 100.3 kg Intake: IV 900 1100 150 Magnesium Sulfate-D5w Pmx 200 1 gm In Dextrose/Water 1 100ml.bag @ 100 mls/hr IVPB Q1H [facility] Rx#: [id number] Sodium Chloride 0.9% @ 75 900 900 150 ml/hr Intake, IV Titration 870 076.679 3630.322 Amount Piperacillin-Tazobactam 3 50 .375 gm In Dextrose/Water 1 50ml.bag @ 12.5 mls/hr IVPB Q8HR [facility] Rx#: [id number] Propofol 500 mg In Empty 420 Bag 1 bag @ Titrate IV . Q0M ONE Rx#:[id number] Propofol 500 mg In Empty 450 276.855 62.322 Bag 1 bag @ Titrate IV . Q0M [facility] Rx#:[id number] Sodium Chloride 0.9% 1, 500 000 ml @ 125 mls/hr IV . Q8H [facility] Rx#:[id number] Sodium Chloride 0.9% 500 500 ml @ 999 mls/hr IV .Q31M ONE Rx#:[id number] Sodium Chloride 0.9% 500 500 ml @ 999 mls/hr IV .Q31M ONE Rx#:[id number] Tube Feeding 70 170 50 Other 90 30 Output: Urine 790 510 155 Emesis 20 Other: Voiding Method Indwelling Catheter Indwelling Catheter Indwelling Catheter # Bowel Movements 0 0 - Constitutional General appearance: Present: obese - EENT Eyes: Present: EOMI, PERRLA ENT: Present: hearing grossly normal - Neck Neck: Present: normal ROM - Cardiovascular Rhythm: regular - Gastrointestinal General gastrointestinal: Present: soft - Neurologic Neurologic Comment(s): No lateralizing weakness is seen. Sensory exam was normal to light touch in all 4 extremities. All facial asymmetry is seen. Mild postural tremors are noticed in bilateral upper extremities. No seizure-like activity is seen. - Psychiatric Psychiatric: Present: A&O x's 3, appropriate affect - Labs CBC & Chem 7: 11/09/16 04:13 11/09/16 12:07 Labs: Abnormal Lab Results - Last 24 Hours (Table) 11/08/16 11/09/16 11/09/16 Range/Units 16:38 04:13 04:13 RBC 3.66 L (3.80-5.40) m/uL Plt Count 132 L (150-450) k/uL Neutrophils # 8.2 H (1.3-7.7) k/uL Lymphocytes # 0.7 L (1.0-4.8) k/uL ABG HCO3 (21-25) mmol/L ABG O2 Saturation (94-97) % Chloride 112 H (98-107) mmol/L Carbon Dioxide 20 L (22-30) mmol/L Glucose 106 H (74-99) mg/dL Calcium 8.1 L (8.4-10.2) mg/dL Magnesium 2.4 H (1.6-2.3) mg/dL AST 86 H (14-36) U/L Troponin I 0.035 H* (0.000-0.034) ng/mL Total Protein 5.4 L (6.3-8.2) g/dL Albumin 2.9 L (3.5-5.0) g/dL 11/09/16 Range/Units 07:11 RBC (3.80-5.40) m/uL Plt Count (150-450) k/uL Neutrophils # (1.3-7.7) k/uL Lymphocytes # (1.0-4.8) k/uL ABG HCO3 19 L (21-25) mmol/L ABG O2 Saturation 98.0 H (94-97) % Chloride (98-107) mmol/L Carbon Dioxide (22-30) mmol/L Glucose (74-99) mg/dL Calcium (8.4-10.2) mg/dL Magnesium (1.6-2.3) mg/dL AST (14-36) U/L Troponin I (0.000-0.034) ng/mL Total Protein (6.3-8.2) g/dL Albumin (3.5-5.0) g/dL Microbiology - Last 24 Hours (Table) 11/08/16 02:03 Urine Culture - Final Urine,Catheterized 11/08/16 01:49 Blood Culture - Preliminary Blood No Growth after 24 hours 11/08/16 03:20 Gram Stain - Preliminary Sputum Sputum Culture - Preliminary - Imaging and Cardiology Chest x-ray: report reviewed CT Scan - head: report reviewed, image reviewed Assessment and Plan (1) Respiratory failure Status: Acute (2) Cardiac abnormality Status: Acute (3) Acute encephalopathy Status: Acute (4) Medication overdose Status: Acute (5) History of alcohol abuse Status: Chronic (6) Altered mental status Status: Acute Plan: The patient's mental status has significantly improved. Again, the patient likely had multifactorial encephalopathy. She likely had toxic encephalopathy or even her home medications, and infectious encephalopathy given her pneumonia. She is oriented 3 at this time. Her EEG is pending. Continue IV antibiotics and neural checks. No lateralizing symptoms are noticed on my examination. There is no concern for any intracranial abnormalities. I will continue to follow with you. Further recommendations to follow. Time with Patient: Less than 30
--- NOTE | 2016-11-09 14:37 | P.PN ---
Subjective Patient presented to ER in unresponsive state was intubated secondary to respiratory failure, etiology of her unresponsiveness is not clear although patient is being treated for aspiration pneumonia the suspicion is patient may have used tricyclic antidepressants. Patient is extubated today is awake and able to provide history which is not clear because of her laryngeal edema from a intubation. Although patient appears to be bit confused as well. It is unable to provide any good history to me. Although she denied any cough runny nose, dysuria. Patient says she is doing well until the morning she was brought to the hospital. Review of systems: Unable to obtain due to above-mentioned reasons. Objective - Vital Signs Vital signs: Vital Signs Temp 99.3 F 11/09/16 12:00 Pulse 84 11/09/16 14:00 Resp 25 H 11/09/16 14:00 BP 177/96 11/09/16 14:00 Pulse Ox 93 L 11/09/16 14:00 Intake & Output 11/08/16 11/09/16 11/09/16 18:59 06:59 18:59 Intake Total 1840 0030.602 4208.322 Output Total 790 530 280 Balance 1050 3640.889 1683.322 Weight 100.9 kg 100.3 kg Intake: IV 900 1100 150 Magnesium Sulfate-D5w Pmx 200 1 gm In Dextrose/Water 1 100ml.bag @ 100 mls/hr IVPB Q1H [facility] Rx#: [id number] Sodium Chloride 0.9% @ 75 900 900 150 ml/hr Intake, IV Titration 870 259.986 9596.322 Amount Piperacillin-Tazobactam 3 50 .375 gm In Dextrose/Water 1 50ml.bag @ 12.5 mls/hr IVPB Q8HR [facility] Rx#: [id number] Propofol 500 mg In Empty 420 Bag 1 bag @ Titrate IV . Q0M [facility] Rx#:[id number] Propofol 500 mg In Empty 450 276.855 62.322 Bag 1 bag @ Titrate IV . Q0M [facility] Rx#:[id number] Sodium Chloride 0.9% 1, 750 000 ml @ 125 mls/hr IV . Q8H [facility] Rx#:[id number] Sodium Chloride 0.9% 500 500 ml @ 999 mls/hr IV .Q31M [facility] Rx#:[id number] Sodium Chloride 0.9% 500 500 ml @ 999 mls/hr IV .Q31M [facility] Rx#:[id number] Tube Feeding 70 170 50 Other 90 30 Output: Urine 790 510 280 Emesis 20 Other: Voiding Method Indwelling Catheter Indwelling Catheter Indwelling Catheter # Bowel Movements 0 0 - Exam PHYSICAL EXAMINATION: GENERAL: The patient is alert and oriented x2-3 probably, not in any acute distress. Well developed, well nourished. Because of her laryngeal edema unable to get much of the history from her. Bit drowsy post extubation HEENT: Pupils are round and equally reacting to light. EOMI. No scleral icterus. No conjunctival pallor. Normocephalic, atraumatic. No pharyngeal erythema. No thyromegaly. CARDIOVASCULAR: S1 and S2 present. No murmurs, rubs, or gallops. PULMONARY: Chest is clear to auscultation, no wheezing or crackles. ABDOMEN: Soft, nontender, nondistended, normoactive bowel sounds. No palpable organomegaly. MUSCULOSKELETAL: No joint swelling or deformity. EXTREMITIES: No cyanosis, clubbing, or pedal edema. NEUROLOGICAL: Gross neurological examination did not reveal any focal deficits. SKIN: No rashes. - Labs CBC & Chem 7: 11/09/16 04:13 11/09/16 12:07 Labs: Abnormal Lab Results - Last 24 Hours (Table) 11/08/16 11/09/16 11/09/16 Range/Units 16:38 04:13 04:13 RBC 3.66 L (3.80-5.40) m/uL Plt Count 132 L (150-450) k/uL Neutrophils # 8.2 H (1.3-7.7) k/uL Lymphocytes # 0.7 L (1.0-4.8) k/uL ABG HCO3 (21-25) mmol/L ABG O2 Saturation (94-97) % Chloride 112 H (98-107) mmol/L Carbon Dioxide 20 L (22-30) mmol/L Glucose 106 H (74-99) mg/dL Calcium 8.1 L (8.4-10.2) mg/dL Magnesium 2.4 H (1.6-2.3) mg/dL AST 86 H (14-36) U/L Troponin I 0.035 H* (0.000-0.034) ng/mL Total Protein 5.4 L (6.3-8.2) g/dL Albumin 2.9 L (3.5-5.0) g/dL 11/09/16 Range/Units 07:11 RBC (3.80-5.40) m/uL Plt Count (150-450) k/uL Neutrophils # (1.3-7.7) k/uL Lymphocytes # (1.0-4.8) k/uL ABG HCO3 19 L (21-25) mmol/L ABG O2 Saturation 98.0 H (94-97) % Chloride (98-107) mmol/L Carbon Dioxide (22-30) mmol/L Glucose (74-99) mg/dL Calcium (8.4-10.2) mg/dL Magnesium (1.6-2.3) mg/dL AST (14-36) U/L Troponin I (0.000-0.034) ng/mL Total Protein (6.3-8.2) g/dL Albumin (3.5-5.0) g/dL Microbiology - Last 24 Hours (Table) 11/08/16 02:03 Urine Culture - Final Urine,Catheterized 11/08/16 01:49 Blood Culture - Preliminary Blood No Growth after 24 hours 11/08/16 03:20 Gram Stain - Preliminary Sputum Sputum Culture - Preliminary Assessment and Plan Plan: Acute respiratory failure: Probably related to drug overdose, Patient is presently extubated. Possible sepsis: Secondary to possible aspiration pneumonia. Patient is presently on Zosyn. Because of the diffuse infiltrate bilaterally on an echocardiogram. Hypertension: Hold off antihypertensives because of concerns of hypotension due to sepsis. Gastroesophageal reflux disease Depression and possible drug overdose, rule out suicide attempt when she is more awake and possibility of evaluation by psychiatry Minimal elevation of troponins: Cardiology evaluated the patient. Does not appear to be secondary to cardiac ischemia not high enough. Hyperchloremia due to IV normal saline.
[2016-11-09] MEDS ORDERED: LORazepam 2 MG/ML SYRINGE IV PRN (15:43)
[2016-11-09] MEDS: ACETAMINOPHEN TAB 325 MG TAB PO PRN (15:55)
[2016-11-09] MEDS: LORazepam 2 MG/ML SYRINGE IV PRN ×5 (15:56→22:25)
[2016-11-09] MEDS: ATENOLOL 50 MG TAB PO SCH (17:38)
--- NOTE | 2016-11-09 18:20 | P.PN ---
Subjective Principal diagnosis: Acute respiratory failure and altered mental status As patient is admitted with acute respiratory failure and altered mental status requiring mechanical ventilation. Patient is extubated. It appears that patient might have had aspiration pneumonia. There is also suspicion of drug overdose. We are seeing the patient because of abnormal troponin values. The values are not consistent with acute myocardial infarction. Most probably related to hypoxic injury. Patient is alerted this time. Echocardiogram was done which needs to be reviewed. Objective - Vital Signs Vital signs: Vital Signs Temp 99.3 F 11/09/16 12:00 Pulse 95 11/09/16 18:00 Resp 28 H 11/09/16 18:00 BP 156/81 11/09/16 18:00 Pulse Ox 95 11/09/16 18:00 Intake & Output 11/08/16 11/09/16 11/09/16 18:59 06:59 18:59 Intake Total 1840 1657.009 5774.322 Output Total 790 530 690 Balance 1050 5810.875 2382.322 Weight 100.9 kg 100.3 kg Intake: IV 900 1100 150 Magnesium Sulfate-D5w Pmx 200 1 gm In Dextrose/Water 1 100ml.bag @ 100 mls/hr IVPB Q1H [facility] Rx#: [id number] Sodium Chloride 0.9% @ 75 900 900 150 ml/hr Intake, IV Titration 870 912.835 1465.322 Amount Piperacillin-Tazobactam 3 100 .375 gm In Dextrose/Water 1 50ml.bag @ 12.5 mls/hr IVPB Q8HR [facility] Rx#: [id number] Propofol 500 mg In Empty 420 Bag 1 bag @ Titrate IV . Q0M ONE Rx#:[id number] Propofol 500 mg In Empty 450 276.855 62.322 Bag 1 bag @ Titrate IV . Q0M [facility] Rx#:[id number] Sodium Chloride 0.9% 1, 1250 000 ml @ 125 mls/hr IV . Q8H [facility] Rx#:[id number] Sodium Chloride 0.9% 500 500 ml @ 999 mls/hr IV .Q31M [facility] Rx#:[id number] Sodium Chloride 0.9% 500 500 ml @ 999 mls/hr IV .Q31M [facility] Rx#:[id number] Oral 20 Tube Feeding 70 170 50 Other 90 30 Output: Urine 790 510 690 Emesis 20 Other: Voiding Method Indwelling Catheter Indwelling Catheter Indwelling Catheter # Bowel Movements 0 0 - Exam GENERAL EXAM: Patient is alert . Just extubated HEENT: Normocephalic. Normal reaction of pupils, equal size, normal range of extraocular motion. No erythema or exudates in the throat. NECK: No masses, no nuchal rigidity. CHEST: No chest wall deformity. LUNGS: Equal air entry with no crackles or wheeze. HEART: S1 and S2 normal with no audible mumurs or gallops. Regular rhythm, femorals equal on both sides.. ABDOMEN: No hepatosplenomegaly, normal bowel sounds, no guarding or rigidity. SKIN: No rashes CENTRAL NERVOUS SYSTEM: As for neurology EXTREMITIES: No cyanosis, clubbing or edema. - Labs CBC & Chem 7: 11/09/16 04:13 11/09/16 12:07 Labs: Abnormal Lab Results - Last 24 Hours (Table) 11/09/16 11/09/16 11/09/16 Range/Units 04:13 04:13 07:11 RBC 3.66 L (3.80-5.40) m/uL Plt Count 132 L (150-450) k/uL Neutrophils # 8.2 H (1.3-7.7) k/uL Lymphocytes # 0.7 L (1.0-4.8) k/uL ABG HCO3 19 L (21-25) mmol/L ABG O2 Saturation 98.0 H (94-97) % Chloride 112 H (98-107) mmol/L Carbon Dioxide 20 L (22-30) mmol/L Glucose 106 H (74-99) mg/dL Calcium 8.1 L (8.4-10.2) mg/dL Magnesium 2.4 H (1.6-2.3) mg/dL AST 86 H (14-36) U/L Total Protein 5.4 L (6.3-8.2) g/dL Albumin 2.9 L (3.5-5.0) g/dL Microbiology - Last 24 Hours (Table) 11/08/16 02:03 Urine Culture - Final Urine,Catheterized 11/08/16 01:49 Blood Culture - Preliminary Blood No Growth after 24 hours 11/08/16 03:20 Gram Stain - Preliminary Sputum Sputum Culture - Preliminary Assessment and Plan (1) Troponin level elevated Status: Acute (2) Altered mental status Status: Acute (3) Respiratory failure Status: Acute Plan: Patient is extubated and seemed to be alert. Doesn't appear to be in acute distress. Cardiac enzymes studies are not size to acute myocardial infarction. Echocardiographic study to be reviewed.
[2016-11-09] MEDS: IPRATROPIUM-ALBUTEROL 3 ML NEB INHALATION PRN (22:16)
[2016-11-10] MEDS: LORazepam 2 MG/ML SYRINGE IV PRN ×4 (01:26→21:42)
[2016-11-10] MEDS: SODIUM CHLORIDE 0.9% 1,000 ML IV SCH ×3 (02:50→20:37)
[2016-11-10] MEDS ORDERED: LISINOPRIL 20 MG TAB PO STA (03:09)
[2016-11-10 04:15] LABS: Basophils % (A) 0 %; CH 31.4; CHCM 32.5; Eosinophils # (A) 0.2 k/uL (0-0.7); Eosinophils % (A) 2 %; HCT 34.3 % (34.0-46.0); HDW 2.65; HGB 11.5 gm/dL (11.4-16.0); Luc # (Auto) 0.15; Luc % (Auto) 1; Lymphocytes # (A) 0.9 k/uL (1.0-4.8); Lymphocytes % (A) 8 %; MCH 32.6 pg (25.0-35.0); MCHC 33.5 g/dL (31.0-37.0); MCV 97.4 fL (80.0-100.0); Mean Platelet Volume 7.8; Monocytes # (A) 0.3 k/uL (0-1.0); Monocytes % (A) 2 %; Neutrophils # (A) 10.3 k/uL (1.3-7.7); Neutrophils % (A) 87 %; RBC 3.52 m/uL (3.80-5.40); RDW 13.6 % (11.5-15.5); WBC 11.8 k/uL (3.8-10.6); WBC (Perox) 11.56
[2016-11-10 04:30] LABS: Anion Gap 8 mmol/L; Blood Urea Nitrogen 8 mg/dL (7-17); Calcium 8.3 mg/dL (8.4-10.2); Carbon Dioxide 21 mmol/L (22-30); Chloride 114 mmol/L (98-107); Glucose 93 mg/dL (74-99); Magnesium 1.8 mg/dL (1.6-2.3); Non-African American GFR(MDRD) >60 (>60 ml/min/1.73 sqM); Phosphorous 3.4 mg/dL (2.5-4.5); Potassium 3.8 mmol/L (3.5-5.1); Sodium 143 mmol/L (137-145)
[2016-11-10] MEDS ORDERED: Potassium Replacement Protocol 1 EACH MISC MISCELLANE PRN (04:55)
[2016-11-10] MEDS ORDERED: POTASSIUM CHLORIDE ER 20 MEQ TAB.ER PO SCH (05:00)
[2016-11-10] MEDS: MAGNESIUM SULFATE-D5W PMX 1 GM in DEXTROSE/WATER 1 100ML.BAG IVPB SCH ×2 (05:23→06:27)
[2016-11-10] MEDS: HYDROmorphone 1 MG/ML 1 ML SYRINGE IVP PRN ×2 (06:26→22:10)
[2016-11-10] MEDS: PANTOPRAZOLE 40 MG/10 ML VIAL IV SCH (08:12)
[2016-11-10] MEDS: HEPARIN SODIUM,PORCINE 5,000 UNIT/ML 1 ML VIAL SQ SCH ×2 (08:13→20:58)
[2016-11-10] MEDS: ATENOLOL 50 MG TAB PO SCH (08:13)
[2016-11-10] MEDS: PIPERACILLIN-TAZOBACTAM 3.375 GM in DEXTROSE/WATER 1 50ML.BAG IVPB SCH ×2 (08:17→20:57)
--- NOTE | 2016-11-10 10:05 | XR ---
EXAMINATION TYPE: XR chest 1V portable DATE OF EXAM: 11/10/2016 COMPARISON: NONE INDICATION: Pneumonia aspiration TECHNIQUE: Single frontal view of the chest is obtained. FINDINGS: The heart size is normal. The pulmonary vasculature is normal. Right suprahilar opacity is present. Mild perihilar infiltrate is present on the right. The endotracheal tube is been removed. The nasogastric tube has been removed. EKG leads overlie the c hest. IMPRESSION: 1. Mild right perihilar and suprahilar opacity. Correlate for atelectasis. This is an atypical locati on for aspiration. 2. Removal of multiple lines and catheters. 2. Resolution previous left lower lobe infiltrate.
--- NOTE | 2016-11-10 10:08 | ECHOF ---
Referral Reason:CHF MEASUREMENTS -------- HEIGHT: 162.6 cm WEIGHT: 100.2 kg BP: 112/64 RVIDd: 3.6 cm (< 3.3) IVSd: 1.2 cm (0.6 - 1.1) LVIDd: 4.5 cm (3.9 - 5.3) LVPWd: 1.2 cm (0.6 - 1.1) IVSs: 2.1 cm LVIDs: 2.3 cm LVPWs: 1.8 cm LAESV Index (A-L): 11.85 ml/m Ao Diam: 3.0 cm (2.0 - 3.7) AV Cusp: 1.7 cm (1.5 - 2.6) LA Diam: 3.3 cm (2.7 - 3.8) MV EXCURSION: 18.395 mm (> 18.000) MV EF SLOPE: 69 mm/s (70 - 150) EPSS: 0.6 cm MV E Joo: 0.74 m/s MV DecT: 190 ms MV A Joo: 0.70 m/s MV E/A Ratio: 1.04 RAP: 5.00 mmHg RVSP: 20.86 mmHg FINDINGS -------- Sinus rhythm with extra systolic beats. This was a technically adequate study. There is mild concentric left ventricular hypertrophy. Overall left ventricular systolic function is normal with, an EF between 65 - 70 %. The right ventricle is normal in size and function. Normal LA size by volume 22+/-6 ml/m2. The right atrium is normal in size. Aortic valve is trileaflet and is mildly thickened. There is no evidence of aortic regurgitation. There is no evidence of aortic stenosis. The mitral valve leaflets are mildly thickened. There is trace to mild mitral regurgitation. Trace tricuspid regurgitation present. There is no evidence of pulmonary hypertension. The right ventricular systolic pressure, as measured by Doppler, is 20.86mmHg. The pulmonic valve was not well visualized. The aortic root size is normal. Normal inferior vena cava with normal inspiratory collapse consistent with estimated right atrial pressure of 5 mmHg. The pericardium is normal. There is no pericardial effusion. CONCLUSIONS -------- 1. Sinus rhythm with extra systolic beats. 2. There is no evidence of pulmonary hypertension. 3. The right ventricular systolic pressure, as measured by Doppler, is 20.86mmHg. 4. The pulmonic valve was not well visualized. 5. The aortic root size is normal. 6. There is no pericardial effusion. 7. This was a technically adequate study. 8. There is mild concentric left ventricular hypertrophy. 9. Overall left ventricular systolic function is normal with, an EF between 65 - 70 %. 10. Normal LA size by volume 22+/-6 ml/m2. 11. Aortic valve is trileaflet and is mildly thickened. 12. The mitral valve leaflets are mildly thickened. 13. There is trace to mild mitral regurgitation. 14. Trace tricuspid regurgitation present. BABY COUNSELOR: Truong Monge RDCS
[2016-11-10] MEDS: IPRATROPIUM-ALBUTEROL 3 ML NEB INHALATION PRN ×3 (12:22→20:13)
--- NOTE | 2016-11-10 12:42 | P.PN ---
Subjective Principal diagnosis: Acute respiratory status failure secondary to drug overdose. This is a 51-year-old female with history of depression, anxiety, hypertension, patient is maintained on multiple meds including Abilify, and Paxil. She is also on lorazepam. Patient was noted by family as not acting appropriate, she was apparently found to be confused and disoriented. Family felt that the patient may have tried to commit suicide since there was evidence of 17 tablets of Ativan missing from her bottle. EMS was called, and the patient was clearly combative and restless, agitated, upon arrival to the ER, the patient was becoming more and more agitated, and she had a temp of 102. Her drug screen was only positive for tricyclics, but no evidence of any other drugs noted. While in the ER, patient had to be intubated, placed on mechanical ventilation, and transferred to the ICU early this morning. ABG post intubation showed a pO2 of 217, pCO2 of 44, pH of 7.25. Lactic acid upon admission was 2.2. Troponin was borderline elevated. WBC count was 11.6. CT of the brain showed no evidence of acute intracranial abnormality. Follow-up ABG this morning showed a pO2 of 83 pCO2 of 32 pH of 7.36. Chest x-ray showed evidence of cardiomegaly, and that she by basilar infiltrates noted as well as left perihilar infiltrate noted. Hence the possibility of aspiration is likely considered. Upon my evaluation, I adjusted the ventilator settings, I also adjusted the flow rates, tidal volumes, and the assist control rate. Patient was placed on a higher dose of propofol, and she was also placed on Dilaudid when necessary. Patient was reevaluated today on 11/09/2016, remains on mechanical ventilations, vent settings were unchanged from yesterday. Patient was earlier on propofol which I have discontinued, and chest x-ray reviewed and there is evidence of left lower lobe pneumonia, right-sided infiltrate has cleared. Labs were all reviewed. CBC is relatively normal. ABG showed a pO2 of 100 pCO2 of 35 pH of 7.36. Bicarb is 19. Renal profile is normal. Liver profile is relatively normal. Troponin is borderline elevated. Weaning parameters were also reviewed hence I will likely extubated the patient after a short trial of pressure support and CPAP. Reevaluated today on 11/10/2016, patient tolerated the extubation well, doing well overall, however she seems to be a bit confused. She thinks that she is actually at [facility]. Patient is still on the protocol for alcohol withdrawal. She was seen by psychiatry, and she was felt to be possibly delirious. Chest x-ray today showed significant improvement, and her perihilar infiltrates and left lower lobe infiltrate. Labs were reviewed, relatively normal CBC and normal electrolytes. Normal renal profile was noted. Objective - Vital Signs Vital signs: Vital Signs Temp 101.4 F H 11/10/16 08:00 Pulse 90 11/10/16 12:31 Resp 23 11/10/16 10:00 BP 171/94 11/10/16 10:00 Pulse Ox 95 11/10/16 10:00 Intake & Output 11/09/16 11/10/16 11/10/16 18:59 06:59 18:59 Intake Total 2787.322 1550.0 125 Output Total 765 978 140 Balance 2022.322 572.0 -15 Weight 103.1 kg Intake: IV 150 125 Sodium Chloride 0.9% 1, 125 000 ml @ 125 mls/hr IV . Q8H [facility] Rx#:[id number] Sodium Chloride 0.9% @ 75 150 ml/hr Intake, IV Titration 2537.322 1550.0 Amount Piperacillin-Tazobactam 3 100 50.0 .375 gm In Dextrose/Water 1 50ml.bag @ 12.5 mls/hr IVPB Q8HR [facility] Rx#: [id number] Propofol 500 mg In Empty 62.322 Bag 1 bag @ Titrate IV . Q0M [facility] Rx#:[id number] Sodium Chloride 0.9% 1, 1375 1500 000 ml @ 125 mls/hr IV . Q8H [facility] Rx#:[id number] Sodium Chloride 0.9% 500 500 ml @ 999 mls/hr IV .Q31M ONE Rx#:[id number] Sodium Chloride 0.9% 500 500 ml @ 999 mls/hr IV .Q31M ONE Rx#:[id number] Oral 20 Tube Feeding 50 Other 30 Output: Urine 765 978 140 Other: Voiding Method Indwelling Catheter Indwelling Catheter Indwelling Catheter # Bowel Movements 0 0 - Exam GENERAL: Patient is intubated sedated,. Well developed, well nourished. On nasal cannula at 3 L. HEENT: Pupils are round and equally reacting to light. EOMI. No scleral icterus. No conjunctival pallor. Normocephalic, atraumatic. No pharyngeal erythema. No thyromegaly. CARDIOVASCULAR: S1 and S2 present. No murmurs, rubs, or gallops. PULMONARY: Managed breath sounds at the bases, minimal crackles at the bases noted, no rhonchi, no wheezes. ABDOMEN: Soft, nontender, nondistended, normoactive bowel sounds. No palpable organomegaly. MUSCULOSKELETAL: No joint swelling or deformity. EXTREMITIES: No cyanosis, clubbing, or pedal edema. NEUROLOGICAL: Arousable, follows all simple instructions, confused as to place and person. She is also confused as to time. - Labs CBC & Chem 7: 11/10/16 04:03 11/10/16 04:03 Labs: Abnormal Lab Results - Last 24 Hours (Table) 11/10/16 11/10/16 Range/Units 04:03 04:03 WBC 11.8 H (3.8-10.6) k/uL RBC 3.52 L (3.80-5.40) m/uL Plt Count 131 L (150-450) k/uL Neutrophils # 10.3 H (1.3-7.7) k/uL Lymphocytes # 0.9 L (1.0-4.8) k/uL Chloride 114 H (98-107) mmol/L Carbon Dioxide 21 L (22-30) mmol/L Calcium 8.3 L (8.4-10.2) mg/dL Microbiology - Last 24 Hours (Table) 11/08/16 03:20 Gram Stain - Final Sputum Sputum Culture - Final 11/08/16 01:49 Blood Culture - Preliminary Blood No Growth after 48 hours 11/08/16 02:03 Urine Culture - Final Urine,Catheterized Assessment and Plan Plan: Impression: 1 Acute hypoxic respiratory failure requiring intubation and mechanical ventilation. Patient was extubated from mechanical ventilation on 11/09/2016. 2 strongly suspect aspiration pneumonia patient was placed on Zosyn. Her aspiration pneumonia seems to be improving, however will continue antibiotics. 3 suspected drug overdose possibly tricyclics, further history will need to be obtained from the family, and further assessment of the bottles of Paxil at home. 4 acute mental status change patient is being followed by neurology and by psychiatry. 5 history of depression and anxiety. 6 history of hypertension. Recommendation: Continue present supportive care measures, will continue to monitor in the ICU for the next 24 hours, and likely transfer to a regular medical floor in the next 24 hours. Patient is not quite ready for any discharge planning at this point. Time with Patient: Less than 30
[2016-11-10] MEDS: ACETAMINOPHEN TAB 325 MG TAB PO PRN (13:23)
[2016-11-10] MEDS: THIAMINE 100 MG TAB PO SCH ×2 (13:23→20:58)
--- NOTE | 2016-11-10 15:14 | P.PN ---
Subjective Principal diagnosis: Patient is a 51-year-old female who is being followed by the neurology service for altered mental status. Patient is seen in the ICU setting. Patient is extubated and alert and conversant. Patient continues on IV antibiotics and is followed by pulmonology and infectious disease. No new neurological deficits. At the time of my evaluation, patient's resting comfortably in bed and appears to be in no acute distress. Objective - Vital Signs Vital signs: Vital Signs Temp 100.5 F H 11/10/16 12:00 Pulse 65 11/10/16 14:00 Resp 33 H 11/10/16 14:00 BP 166/98 11/10/16 14:00 Pulse Ox 94 L 11/10/16 14:00 Intake & Output 11/09/16 11/10/16 11/10/16 18:59 06:59 18:59 Intake Total 2787.322 1550.0 850 Output Total 765 978 900 Balance 2022.322 572.0 -50 Weight 103.1 kg Intake: IV 150 750 Sodium Chloride 0.9% 1, 750 000 ml @ 125 mls/hr IV . Q8H [facility] Rx#:[id number] Sodium Chloride 0.9% @ 75 150 ml/hr Intake, IV Titration 2537.322 1550.0 Amount Piperacillin-Tazobactam 3 100 50.0 .375 gm In Dextrose/Water 1 50ml.bag @ 12.5 mls/hr IVPB Q8HR [facility] Rx#: [id number] Propofol 500 mg In Empty 62.322 Bag 1 bag @ Titrate IV . Q0M [facility] Rx#:[id number] Sodium Chloride 0.9% 1, 1375 1500 000 ml @ 125 mls/hr IV . Q8H [facility] Rx#:[id number] Sodium Chloride 0.9% 500 500 ml @ 999 mls/hr IV .Q31M ONE Rx#:[id number] Sodium Chloride 0.9% 500 500 ml @ 999 mls/hr IV .Q31M ONE Rx#:[id number] Oral 20 100 Tube Feeding 50 Other 30 Output: Urine 765 978 900 Other: Voiding Method Indwelling Catheter Indwelling Catheter Indwelling Catheter # Bowel Movements 0 0 - Exam PHYSICAL EXAM: GENERAL APPEARANCE: Patient is a well-developed, female who appears to be in no acute distress. HEENT: Normocephalic, atraumatic, no facial asymmetry is seen. Neck is supple with no masses felt. CARDIOVASCULAR: Regular rate and rhythm. ABDOMEN: Nontender, nondistended. EXTREMITIES: Show no edema or clubbing. NEUROLOGICAL EXAM: Patient is awake, alert, and oriented 3. Speech and language are normal. No lateralizing weakness is seen. Sensory exam is normal to light touch in all 4 extremities. No facial asymmetry is seen on cranial nerve testing. No seizure-like activity is noted. - Labs CBC & Chem 7: 11/10/16 04:03 11/10/16 04:03 Labs: Abnormal Lab Results - Last 24 Hours (Table) 11/10/16 11/10/16 Range/Units 04:03 04:03 WBC 11.8 H (3.8-10.6) k/uL RBC 3.52 L (3.80-5.40) m/uL Plt Count 131 L (150-450) k/uL Neutrophils # 10.3 H (1.3-7.7) k/uL Lymphocytes # 0.9 L (1.0-4.8) k/uL Chloride 114 H (98-107) mmol/L Carbon Dioxide 21 L (22-30) mmol/L Calcium 8.3 L (8.4-10.2) mg/dL Microbiology - Last 24 Hours (Table) 11/08/16 03:20 Gram Stain - Final Sputum Sputum Culture - Final 11/08/16 01:49 Blood Culture - Preliminary Blood No Growth after 48 hours 11/08/16 02:03 Urine Culture - Final Urine,Catheterized Assessment and Plan (1) Acute encephalopathy Status: Acute (2) Altered mental status Status: Acute (3) Medication overdose Status: Acute (4) Respiratory failure Status: Acute (5) History of alcohol abuse Status: Chronic Plan: Patient's mental status has significantly improved. As previously mentioned, patient altered mental status is likely due to a combination of factors. She most likely had toxic encephalopathy given her home medications as well as infectious encephalopathy given her pneumonia. As mentioned above, no lateralizing symptoms are noted. Continue current medical management. Barring any complications on the EEG, I will continue to follow on an as-needed basis. Feel free to call with any questions or concerns.
[2016-11-10] MEDS: NICOTINE 21MG/24HR PATCH TRANSDERM SCH (15:37)
--- NOTE | 2016-11-10 16:29 | P.PN ---
Subjective This is a 51-year-old female that is admitted to the hospital with change in mental status and respiratory distress. Patient was emergently intubated in the emergency room. Patient was monitored in the intensive care unit suspicion for her change in mental status was toxic encephalopathy Patient was extubated on 11/09/2016 Patient is seen in coverage today is unremarkable 1 of supplemental oxygen was able to converse however initially stated that she took 4 tablets of Xanax and some alcohol due to problems with her significant other about 15 minutes later states that she took Ativan same amount and did not state that she was suicidal or homicidal. Patient does appear to change her stories quite frequently Denies having any headaches change in vision chest pain difficulty breathing nausea vomiting or diarrhea Drug screen initially was noted to show some antidepressants Objective - Vital Signs Vital signs: Vital Signs Temp 100.5 F H 11/10/16 12:00 Pulse 64 11/10/16 15:46 Resp 33 H 11/10/16 14:00 BP 166/98 11/10/16 14:00 Pulse Ox 94 L 11/10/16 14:00 Intake & Output 11/09/16 11/10/16 11/10/16 18:59 06:59 18:59 Intake Total 2787.322 1550.0 850 Output Total 765 978 900 Balance 2022.322 572.0 -50 Weight 103.1 kg Intake: IV 150 750 Sodium Chloride 0.9% 1, 750 000 ml @ 125 mls/hr IV . Q8H [facility] Rx#:[id number] Sodium Chloride 0.9% @ 75 150 ml/hr Intake, IV Titration 2537.322 1550.0 Amount Piperacillin-Tazobactam 3 100 50.0 .375 gm In Dextrose/Water 1 50ml.bag @ 12.5 mls/hr IVPB Q8HR [facility] Rx#: [id number] Propofol 500 mg In Empty 62.322 Bag 1 bag @ Titrate IV . Q0M [facility] Rx#:[id number] Sodium Chloride 0.9% 1, 1375 1500 000 ml @ 125 mls/hr IV . Q8H [facility] Rx#:[id number] Sodium Chloride 0.9% 500 500 ml @ 999 mls/hr IV .Q31M [facility] Rx#:[id number] Sodium Chloride 0.9% 500 500 ml @ 999 mls/hr IV .Q31M [facility] Rx#:[id number] Oral 20 100 Tube Feeding 50 Other 30 Output: Urine 765 978 900 Other: Voiding Method Indwelling Catheter Indwelling Catheter Indwelling Catheter # Bowel Movements 0 0 - Exam Physical exam Gen. appearance oriented 3 in no distress Neck is supple no JVD Lungs good air entry clear to auscultation no rhonchi or wheezing Heart S1-S2 heard regular rate and rhythm no murmurs appreciated Abdomen is soft nontender no organomegaly bowel sounds are intact Neurologically is all 4 extremities extraocular movements intact no focal strength deficits noted. Strength is 5 out of 5 Psych confabulations Skin no abnormalities appreciated - Labs CBC & Chem 7: 11/10/16 04:03 11/10/16 04:03 Labs: Abnormal Lab Results - Last 24 Hours (Table) 11/10/16 11/10/16 Range/Units 04:03 04:03 WBC 11.8 H (3.8-10.6) k/uL RBC 3.52 L (3.80-5.40) m/uL Plt Count 131 L (150-450) k/uL Neutrophils # 10.3 H (1.3-7.7) k/uL Lymphocytes # 0.9 L (1.0-4.8) k/uL Chloride 114 H (98-107) mmol/L Carbon Dioxide 21 L (22-30) mmol/L Calcium 8.3 L (8.4-10.2) mg/dL Microbiology - Last 24 Hours (Table) 11/08/16 03:20 Gram Stain - Final Sputum Sputum Culture - Final 11/08/16 01:49 Blood Culture - Preliminary Blood No Growth after 48 hours 11/08/16 02:03 Urine Culture - Final Urine,Catheterized Assessment and Plan Plan: #1 acute hypoxic respiratory failure due to change in mental status from toxic encephalopathy due to medication overdose appears to be tricyclic antidepressant #2 obesity #3 ongoing tobacco use #4 underlying COPD with no acute exacerbation #5 aspiration pneumonia Plan Zosyn. Continue with the thiamine replacement Patient will be slowly titrated off 02 Underlying hypoxemia could've worsened her encephalopathy as well Continue full ICU support Blood pressures are slightly elevated Continue monitoring DC IV fluids until oral intake is increased
--- NOTE | 2016-11-10 21:52 | P.PN ---
Subjective Principal diagnosis: altered mental status 1-year-old female who appears older than her stated age presents to Hospital when EMS was called. The secondary transformation relates that she apparently was not acting like herself and was quite obtunded for several days. Because she was not improving EMS was called. She was intubated in the field because of her poor mental status. She was brought to our facility where she remains intubated sedated and mechanically ventilated. The daughter who comes to visit relates that she has had episodes of prior drug overdose or suicide attempts. She was wondering what her alcohol level was at admission. If any other drugs were found. She does not control her current medication list but would not be surprised if she was on try cyclic medications. Without other drugs would have more likely been involved. She does not relate that her mother uses injection drugs. Is a tobacco smoker. Voices improved. Content of speech is quite poor. She has great difficulty with clarity of every details. However is able to relate that she potentially could be . Nursing staff has noted onset of diarrhea. Objective - Vital Signs Vital signs: Vital Signs Temp 99.1 F 11/10/16 20:00 Pulse 87 11/10/16 21:00 Resp 32 H 11/10/16 21:00 BP 181/90 11/10/16 21:00 Pulse Ox 89 L 11/10/16 21:00 Intake & Output 11/10/16 11/10/16 11/11/16 06:59 18:59 06:59 Intake Total 1550.0 1325 Output Total 978 1825 Balance 572.0 -500 Weight 103.1 kg Intake: IV 1225 Sodium Chloride 0.9% 1, 1225 000 ml @ 125 mls/hr IV . Q8H [facility] Rx#:[id number] Intake, IV Titration 1550.0 Amount Piperacillin-Tazobactam 3 50.0 .375 gm In Dextrose/Water 1 50ml.bag @ 12.5 mls/hr IVPB Q8HR [facility] Rx#: [id number] Sodium Chloride 0.9% 1, 1500 000 ml @ 125 mls/hr IV . Q8H [facility] Rx#:[id number] Oral 100 Output: Urine 978 1825 Other: Voiding Method Indwelling Catheter Indwelling Catheter # Bowel Movements 0 - Exam 51-year-old woman who appears much older than stated age HEENT: Anicteric conjunctiva are pink and moist nasal mucosa grossly intact without significant lesions, there is no thrush.her on the endotr tube Neck: The neck is supple without significant lymphadenopathy or thyromegaly. Lungs: symmetrical air entry without significant crackles or wheezing. There is no significant bronchial sounds. There is no egophony or dullness. Heart: Regular rate and rhythm with an audible S1-S2, no S3 no S4. There is no significant murmur click or rub, PMI was nondisplaced. Abdomen: mildly obese,Positive bowel sounds soft nonrigid without palpable masses or organomegaly. Extremities: The upper extremities have excellent pulses they are symmetric, no significant petechiae or telangiectasia. No splinter hemorrhages were noted. The lower extremities are free from significant edema. The peripheral pulses were 2+ and symmetric. Neuro: Awake alert oriented to person following simple commands without difficulty speech content is still poor and that she is having difficulty with clarity of details - Labs CBC & Chem 7: 11/10/16 04:03 11/10/16 04:03 Labs: Abnormal Lab Results - Last 24 Hours (Table) 11/10/16 11/10/16 Range/Units 04:03 04:03 WBC 11.8 H (3.8-10.6) k/uL RBC 3.52 L (3.80-5.40) m/uL Plt Count 131 L (150-450) k/uL Neutrophils # 10.3 H (1.3-7.7) k/uL Lymphocytes # 0.9 L (1.0-4.8) k/uL Chloride 114 H (98-107) mmol/L Carbon Dioxide 21 L (22-30) mmol/L Calcium 8.3 L (8.4-10.2) mg/dL Microbiology - Last 24 Hours (Table) 11/08/16 03:20 Gram Stain - Final Sputum Sputum Culture - Final 11/08/16 01:49 Blood Culture - Preliminary Blood No Growth after 48 hours Laboratory Results WBC 11.8 k/uL (3.8-10.6) H 11/10/16 04:03 RBC 3.52 m/uL (3.80-5.40) L 11/10/16 04:03 Hgb 11.5 gm/dL (11.4-16.0) 11/10/16 04:03 Hct 34.3 % (34.0-46.0) 11/10/16 04:03 MCV 97.4 fL (80.0-100.0) 11/10/16 04:03 MCH 32.6 pg (25.0-35.0) 11/10/16 04:03 MCHC 33.5 g/dL (31.0-37.0) 11/10/16 04:03 RDW 13.6 % (11.5-15.5) 11/10/16 04:03 Plt Count 131 k/uL (150-450) L 11/10/16 04:03 Neutrophils % 87 % 11/10/16 04:03 Lymphocytes % 8 % 11/10/16 04:03 Monocytes % 2 % 11/10/16 04:03 Eosinophils % 2 % 11/10/16 04:03 Basophils % 0 % 11/10/16 04:03 Neutrophils # 10.3 k/uL (1.3-7.7) H 11/10/16 04:03 Lymphocytes # 0.9 k/uL (1.0-4.8) L 11/10/16 04:03 Monocytes # 0.3 k/uL (0-1.0) 11/10/16 04:03 Eosinophils # 0.2 k/uL (0-0.7) 11/10/16 04:03 Basophils # 0.0 k/uL (0-0.2) 11/10/16 04:03 PT 11.4 sec (9.0-12.0) 11/08/16 00:44 INR 1.1 (<1.1) 11/08/16 00:44 APTT 22.2 sec (22.0-30.0) 11/08/16 00:44 Sample Site rrad 11/09/16 07:11 ABG pH 7.36 (7.35-7.45) 11/09/16 07:11 ABG pCO2 35 mmHg (35-45) 11/09/16 07:11 ABG pO2 100 mmHg (83-108) 11/09/16 07:11 ABG HCO3 19 mmol/L (21-25) L 11/09/16 07:11 ABG Total CO2 20 mmol/L (19-24) 11/09/16 07:11 ABG O2 Saturation 98.0 % (94-97) H 11/09/16 07:11 ABG Base Excess -6.0 mmol/L 11/09/16 07:11 FiO2 50 % 11/09/16 07:11 Sodium 143 mmol/L (137-145) 11/10/16 04:03 Potassium 3.8 mmol/L (3.5-5.1) 11/10/16 04:03 Chloride 114 mmol/L (98-107) H 11/10/16 04:03 Carbon Dioxide 21 mmol/L (22-30) L 11/10/16 04:03 Anion Gap 8 mmol/L 11/10/16 04:03 BUN 8 mg/dL (7-17) 11/10/16 04:03 Creatinine 0.80 mg/dL (0.52-1.04) 11/10/16 04:03 Est GFR (MDRD) Af Amer >60 (>60 ml/min/1.73 sqM) 11/10/16 04:03 Est GFR (MDRD) Non-Af >60 (>60 ml/min/1.73 sqM) 11/10/16 04:03 Glucose 93 mg/dL (74-99) 11/10/16 04:03 POC Glucose (mg/dL) 120 mg/dL (75-99) H 11/08/16 05:17 POC Glu Critical Care Technician ID Naida Brennan 11/08/16 05:17 Plasma Lactic Acid Ender 0.9 mmol/L (0.7-2.0) 11/08/16 16:38 Calcium 8.3 mg/dL (8.4-10.2) L 11/10/16 04:03 Phosphorus 3.4 mg/dL (2.5-4.5) 11/10/16 04:03 Magnesium 1.8 mg/dL (1.6-2.3) 11/10/16 04:03 Total Bilirubin 0.4 mg/dL (0.2-1.3) 11/09/16 04:13 AST 86 U/L (14-36) H 11/09/16 04:13 ALT 51 U/L (9-52) 11/09/16 04:13 Alkaline Phosphatase 78 U/L (38-126) 11/09/16 04:13 Ammonia 12 umol/L (<30) 11/08/16 01:49 Total Creatine Kinase 7826 U/L (30-135) H 11/08/16 00:44 CK-MB (CK-2) 50.1 ng/mL (0.0-2.4) H* 11/08/16 00:44 CK-MB (CK-2) Rel Index 11/08/16 00:44 Troponin I 0.035 ng/mL (0.000-0.034) H* 11/08/16 16:38 NT-Pro-B Natriuret Pep 199 pg/mL 11/08/16 00:44 Total Protein 5.4 g/dL (6.3-8.2) L 11/09/16 04:13 Albumin 2.9 g/dL (3.5-5.0) L 11/09/16 04:13 Urine Color Light Yellow 11/08/16 02:03 Urine Appearance Clear (Clear) 11/08/16 02:03 Urine pH 5.0 (5.0-8.0) 11/08/16 02:03 Ur Specific Enloe 1.005 (1.001-1.035) 11/08/16 02:03 Urine Protein Negative (Negative) 11/08/16 02:03 Urine Glucose (UA) Negative (Negative) 11/08/16 02:03 Urine Ketones Negative (Negative) 11/08/16 02:03 Urine Blood Trace (Negative) H 11/08/16 02:03 Urine Nitrite Negative (Negative) 11/08/16 02:03 Urine Bilirubin Negative (Negative) 11/08/16 02:03 Urine Urobilinogen <2.0 mg/dL (<2.0) 11/08/16 02:03 Ur Leukocyte Esterase Negative (Negative) 11/08/16 02:03 Urine RBC 1 /hpf (0-5) 11/08/16 02:03 Urine HCG, Qual Not Detected (Not Detectd) 11/10/16 20:07 Urine Opiates Screen Not Detected (NotDetected) 11/08/16 02:03 Ur Oxycodone Screen Not Detected (NotDetected) 11/08/16 02:03 Urine Methadone Screen Not Detected (NotDetected) 11/08/16 02:03 Ur Propoxyphene Screen Not Detected (NotDetected) 11/08/16 02:03 Acetaminophen <10.0 ug/mL 11/08/16 01:49 Ur Barbiturates Screen Not Detected (NotDetected) 11/08/16 02:03 U Tricyclic Antidepress Detected (NotDetected) H 11/08/16 02:03 Ur Phencyclidine Scrn Not Detected (NotDetected) 11/08/16 02:03 Ur Amphetamines Screen Not Detected (NotDetected) 11/08/16 02:03 U Methamphetamines Scrn Not Detected (NotDetected) 11/08/16 02:03 U Benzodiazepines Scrn Not Detected (NotDetected) 11/08/16 02:03 Urine Cocaine Screen Not Detected (NotDetected) 11/08/16 02:03 U Marijuana (THC) Screen Not Detected (NotDetected) 11/08/16 02:03 Serum Alcohol <10 mg/dL 11/08/16 01:49 Acetone, Qual Negative (Negative) 11/08/16 00:44 C. difficile (EIA) Intrp Negative (Negative) 11/10/16 20:07 Microbiology 11/08/16 03:20 Sputum Gram Stain - Final 11/08/16 03:20 Sputum Sputum Culture - Final 11/08/16 01:49 Blood Blood Culture - Preliminary No Growth after 48 hours 11/08/16 02:03 Urine,Catheterized Urine Culture - Final Assessment and Plan (1) Altered mental status Narrative/Plan: 51-year-old woman who presents to Hospital when EMS was called because of altered mental status for several days. He has noted she required intubation in the field because of her altered mental status. The patient has had fever. As noted has abnormal chest x-ray. Likely had an aspiration event in the field. Antibiotic therapy with Zosyn has been started as an adequate choice at this point in time. Family is unable to relate any known prior infections. Would not enhance antibiotic therapy further at this time especially based on the sputum Gram stain. We'll continue ongoing supportive care. Fortunately the family does seem to be somewhat engaged to may be helpful in determining the next steps in her overall care. WBC has improved She is at risk for wounds and rhabdomyolysis, CK is only mildly elevated. At this time no renal failure and no static and skin lesions. Is improved today, but still confused Relates the potential of . Consequently stat beta-hCG is requested. Laboratory does relate is negative. She also developed significant loose stool. Sent to the laboratory for C. diff. Also coming back as negative. As x-ray is improving with the treatment of what appears to be an aspiration pneumonia. If she improves to Zosyn may be transitioned to Augmentin to complete her course of therapy. Status: Acute
[2016-11-10] MEDS ORDERED: HALOPERIDOL LACTATE 5 MG/ML 1 ML VIAL IVP PRN (22:26)
[2016-11-10] MEDS ORDERED: HALOPERIDOL LACTATE 5 MG/ML 1 ML VIAL IM ONE (22:26)
[2016-11-10] MEDS ORDERED: DIPHENOX-ATROP 2.5-0.025 MG 1 EACH TAB PO PRN (22:40)
[2016-11-11] MEDS: LORazepam 2 MG/ML SYRINGE IV PRN (01:05)
[2016-11-11] MEDS: PIPERACILLIN-TAZOBACTAM 3.375 GM in DEXTROSE/WATER 1 50ML.BAG IVPB SCH ×4 (01:23→23:00)
[2016-11-11] MEDS: SODIUM CHLORIDE 0.9% 1,000 ML IV SCH ×2 (01:24→11:34)
[2016-11-11 05:18] LABS: Basophils % (A) 0 %; CH 31.7; CHCM 33.7; Eosinophils # (A) 0.2 k/uL (0-0.7); Eosinophils % (A) 2 %; HCT 33.3 % (34.0-46.0); HDW 2.67; HGB 11.4 gm/dL (11.4-16.0); Luc # (Auto) 0.16; Luc % (Auto) 2; Lymphocytes # (A) 1.3 k/uL (1.0-4.8); Lymphocytes % (A) 14 %; MCH 32.3 pg (25.0-35.0); MCHC 34.2 g/dL (31.0-37.0); MCV 94.5 fL (80.0-100.0); Mean Platelet Volume 8.9; Monocytes # (A) 0.4 k/uL (0-1.0); Monocytes % (A) 4 %; Neutrophils # (A) 7.3 k/uL (1.3-7.7); Neutrophils % (A) 78 %; RBC 3.53 m/uL (3.80-5.40); RDW 13.5 % (11.5-15.5); WBC 9.4 k/uL (3.8-10.6); WBC (Perox) 9.53
[2016-11-11 05:46] LABS: Anion Gap 9 mmol/L; Blood Urea Nitrogen 6 mg/dL (7-17); Calcium 8.5 mg/dL (8.4-10.2); Carbon Dioxide 23 mmol/L (22-30); Chloride 108 mmol/L (98-107); Glucose 92 mg/dL (74-99); Magnesium 1.7 mg/dL (1.6-2.3); Non-African American GFR(MDRD) >60 (>60 ml/min/1.73 sqM); Phosphorous 4.4 mg/dL (2.5-4.5); Potassium 3.4 mmol/L (3.5-5.1); Sodium 140 mmol/L (137-145)
[2016-11-11] MEDS: MAGNESIUM SULFATE-D5W PMX 1 GM in DEXTROSE/WATER 1 100ML.BAG IVPB SCH ×2 (06:24→07:46)
[2016-11-11] MEDS: cloNIDine HCL 0.1 MG TAB PO SCH ×2 (07:44→08:46)
[2016-11-11] MEDS: ATENOLOL 50 MG TAB PO SCH (07:47)
[2016-11-11] MEDS: NICOTINE 21MG/24HR PATCH TRANSDERM SCH (07:47)
[2016-11-11] MEDS: HEPARIN SODIUM,PORCINE 5,000 UNIT/ML 1 ML VIAL SQ SCH ×2 (07:47→20:18)
[2016-11-11] MEDS: LISINOPRIL 20 MG TAB PO SCH (07:48)
[2016-11-11] MEDS: PANTOPRAZOLE 40 MG/10 ML VIAL IV SCH (07:48)
[2016-11-11] MEDS: POTASSIUM CHLORIDE 10 MEQ, LIDOCAINE 2% INJ 10 MG in SODIUM CHLORIDE 0.9% 100 ML IV SCH ×2 (07:54→11:32)
--- NOTE | 2016-11-11 10:10 | P.PN ---
Subjective Principal diagnosis: Acute respiratory status failure secondary to drug overdose. And aspiration pneumonia This is a 51-year-old female with history of depression, anxiety, hypertension, patient is maintained on multiple meds including Abilify, and Paxil. She is also on lorazepam. Patient was noted by family as not acting appropriate, she was apparently found to be confused and disoriented. Family felt that the patient may have tried to commit suicide since there was evidence of 17 tablets of Ativan missing from her bottle. EMS was called, and the patient was clearly combative and restless, agitated, upon arrival to the ER, the patient was becoming more and more agitated, and she had a temp of 102. Her drug screen was only positive for tricyclics, but no evidence of any other drugs noted. While in the ER, patient had to be intubated, placed on mechanical ventilation, and transferred to the ICU early this morning. ABG post intubation showed a pO2 of 217, pCO2 of 44, pH of 7.25. Lactic acid upon admission was 2.2. Troponin was borderline elevated. WBC count was 11.6. CT of the brain showed no evidence of acute intracranial abnormality. Follow-up ABG this morning showed a pO2 of 83 pCO2 of 32 pH of 7.36. Chest x-ray showed evidence of cardiomegaly, and that she by basilar infiltrates noted as well as left perihilar infiltrate noted. Hence the possibility of aspiration is likely considered. Upon my evaluation, I adjusted the ventilator settings, I also adjusted the flow rates, tidal volumes, and the assist control rate. Patient was placed on a higher dose of propofol, and she was also placed on Dilaudid when necessary. Patient was reevaluated today on 11/09/2016, remains on mechanical ventilations, vent settings were unchanged from yesterday. Patient was earlier on propofol which I have discontinued, and chest x-ray reviewed and there is evidence of left lower lobe pneumonia, right-sided infiltrate has cleared. Labs were all reviewed. CBC is relatively normal. ABG showed a pO2 of 100 pCO2 of 35 pH of 7.36. Bicarb is 19. Renal profile is normal. Liver profile is relatively normal. Troponin is borderline elevated. Weaning parameters were also reviewed hence I will likely extubated the patient after a short trial of pressure support and CPAP. Reevaluated today on 11/10/2016, patient tolerated the extubation well, doing well overall, however she seems to be a bit confused. She thinks that she is actually at [facility]. Patient is still on the protocol for alcohol withdrawal. She was seen by psychiatry, and she was felt to be possibly delirious. Chest x-ray today showed significant improvement, and her perihilar infiltrates and left lower lobe infiltrate. Labs were reviewed, relatively normal CBC and normal electrolytes. Normal renal profile was noted. Reevaluated today on 11/11/2016, patient is doing well, much more awake and appropriate today than she was in the last couple of days. Patient is oriented 3, she has no focal neurologic deficit. Denies being short of breath, no chest pain, she is complaining of intermittent episodes of dry hacking cough. Last chest x-ray showed improvement in her pneumonia, patient remains on antibiotics in the form of Zosyn. CBC today is relatively normal. Basic metabolic profile is relatively normal except for low potassium of 3.4 being corrected as per protocol. Objective - Vital Signs Vital signs: Vital Signs Temp 99.9 F H 11/11/16 08:00 Pulse 72 11/11/16 08:00 Resp 34 H 11/11/16 08:00 BP 154/90 11/11/16 08:00 Pulse Ox 94 L 11/11/16 08:00 Intake & Output 11/10/16 11/11/16 11/11/16 18:59 06:59 18:59 Intake Total 1325 1225 312.5 Output Total 1825 2435 335 Balance -500 -1210 -22.5 Weight 101 kg Intake: IV 1225 1225 312.5 Magnesium Sulfate-D5w Pmx 200 1 gm In Dextrose/Water 1 100ml.bag @ 100 mls/hr IVPB Q1H [facility] Rx#: [id number] Piperacillin-Tazobactam 3 50 12.5 .375 gm In Dextrose/Water 1 50ml.bag @ 12.5 mls/hr IVPB Q8HR [facility] Rx#: [id number] Potassium Chloride 10 meq 100 Lidocaine 2% Inj 10 mg In Sodium Chloride 0.9% 100 ml @ 100 mls/hr IV Q1HR [facility] Rx#:[id number] Sodium Chloride 0.9% 1, 1225 1175 0 000 ml @ 125 mls/hr IV . Q8H [facility] Rx#:[id number] Oral 100 Output: Urine 1825 2435 335 Other: Voiding Method Indwelling Catheter Indwelling Catheter Indwelling Catheter # Bowel Movements 5 - Exam GENERAL: Patient is intubated sedated,. Well developed, well nourished. On nasal cannula at 3 L. HEENT: Pupils are round and equally reacting to light. EOMI. No scleral icterus. No conjunctival pallor. Normocephalic, atraumatic. No pharyngeal erythema. No thyromegaly. CARDIOVASCULAR: S1 and S2 present. No murmurs, rubs, or gallops. PULMONARY: Minimal fine crackles at the left base ABDOMEN: Soft, nontender, nondistended, normoactive bowel sounds. No palpable organomegaly. MUSCULOSKELETAL: No joint swelling or deformity. EXTREMITIES: No cyanosis, clubbing, or pedal edema. NEUROLOGICAL: No gross focal neurologic deficit mental status has significantly improved in the last 24 hours. - Labs CBC & Chem 7: 11/11/16 05:05 11/11/16 05:05 Labs: Abnormal Lab Results - Last 24 Hours (Table) 11/11/16 11/11/16 Range/Units 05:05 05:05 RBC 3.53 L (3.80-5.40) m/uL Hct 33.3 L (34.0-46.0) % Plt Count 138 L (150-450) k/uL Potassium 3.4 L (3.5-5.1) mmol/L Chloride 108 H (98-107) mmol/L BUN 6 L (7-17) mg/dL Microbiology - Last 24 Hours (Table) 11/08/16 01:49 Blood Culture - Preliminary Blood No Growth after 72 hours 11/08/16 03:20 Gram Stain - Final Sputum Sputum Culture - Final Assessment and Plan Plan: Impression: 1 Acute hypoxic respiratory failure requiring intubation and mechanical ventilation. Patient was extubated from mechanical ventilation on 11/09/2016. 2 strongly suspect aspiration pneumonia patient was placed on Zosyn. Her aspiration pneumonia seems to be improving, however will continue antibiotics. Zosyn could be switched to Augmentin in the next 24 hours. 3 suspected drug overdose possibly tricyclics, further history will need to be obtained from the family, and further assessment of the bottles of Paxil at home. 4 acute mental status change patient is being followed by neurology and by psychiatry. 5 history of depression and anxiety. 6 history of hypertension. Recommendation: Continue present supportive care measures, patient can be transferred out of the ICU today, and discharge planning in the next 24-48 hours. Follow-up chest x-ray in a.m. Time with Patient: Less than 30
[2016-11-11 11:26] VITALS: BMI 38.2
[2016-11-11] MEDS: THIAMINE 100 MG TAB PO SCH ×2 (11:32→16:22)
--- NOTE | 2016-11-11 17:53 | P.CN ---
Psychiatric Consult - . Consult date: 11/11/16 Consult:: 11/11/16 17:37 DATE OF SERVICE: 11/11/2016 IDENTIFYING DATA: This patient is a 51-year-old female admitted to the ICU after an alleged overdose. HISTORY OF PRESENT ILLNESS: The patient brought into the emergency room after family members found her obtunded, she was intubated, and mechanically ventilated. Family members told staff that they thought she may have taken an overdose of Ativan. Her urine drug screen was negative for benzodiazepines for alcohol but positive for try cyclic's. Multiple attempts at assessing patient but she was delirious. Appears she had respiratory aspiration leading to pneumonia. She has been transferred from ICU to the fourth floor. She was awake seated in her bed, greeted me appropriately. Does not remember me does not remember our discussion. Patient states she did not make a suicide attempt states that she may have forgotten that she took her medicine took it twice but again the UDS was negative. Patient states that she has been treated for depression for many years since her early 20s. She currently is treated by Dr. Bernal and she receives Abilify 2 mg daily, Paxil 40 mg daily, and Ativan 0.5 mg daily. Patient denies depression, anxiety. Patient denies suicidal ideation. PAST PSYCHIATRIC HISTORY: Patient reports that she had one psychiatric hospitalization possibly 27-30 years ago does not have much recall about it. As stated above she has been treated for depression primarily by her primary care doctor's has never seen a psychiatrist. Patient denies past suicide attempts. Patient does not have self injurious behavior i.e. cutting or burning herself.. PAST MEDICAL HISTORY: Per record. ALLERGIES: No known drug allergies. CHEMICAL DEPENDENCY HISTORY: Patient reports that she drinks 4-5 beers per day, may drink 6 or more on a monthly basis. She denies rehab she denies DUIs. Denies previous drug use. FAMILY PSYCHIATRIC HISTORY: Unknown, patient states that she was adopted.. FAMILY CHEMICAL DEPENDENCY HISTORY: Unknown. LEGAL HISTORY: Denies. SOCIAL HISTORY: Patient states that she was born to a family of 16 children, that her father in an accident and her mother could not take care of all the children so they were spread out across [place] but all were paired up. She says she doesn't recall anything about her childhood or her family of origin , but she and her eldest sister Shannan were put together in a home and that Shannan said their lives were better in the adopted home than in their home Patient states that she was short 3 months of graduating from high school when they discovered that she did not have enough credits to graduate, and they did not allow her to do makeup in the summer so she ended up not graduating from high school. Patient has been once and is now she has 4 children age 33, 29 , 24, and 14. She reports that her 14-year-old is living with her ex-, that he went to [employer] and got a section 8 house and then did not allow her to join them. Her 14-year-old son has autism and he is being treated psychiatrist, she gets to see him every Tuesday. She is currently with a boyfriend she lives with him she is not working she has worked several jobs but currently unemployed.. MENTAL STATUS EXAM: Patient alert and oriented 3, good eye contact, fair groomed in hospital attire. Speech normal volume, rate and production. Coherent, logical and goal directed thought process. No MIKE, no FOI. [No TB/TW/ TI] Denied auditory and visual hallucinations. Denied paranoid ideation, delusions or IOR. Memory grossly intact Cognition average Recalled 3/3 at 0,, 1/3 at 5 minutes; Serial 7's unable to complete, 20-3 = 18, 15, 12, 9, 6, 3, 0 WORLD DLORW Mood euthymic, affect full range, normal intensity, congruent with mood. Denies suicidal ideation, denies homicidal ideation. Insight partial; Judgment grossly intact for treatment purposes . IMPRESSIONS: 51-year-old female with history of depression currently treated to resolution, had an event that does not appear to be a suicide attempt. She does have a history of alcohol use, but her UDS was negative for alcohol, benzodiazepines, other drugs of abuse, positive for TCA. She has no past history of suicide attempts, she had one psychiatric admission in her 20s. No history of fely/hypomania, psychosis. She does drink over the recommended amount for women, fortified beers per day. She did not report any consequences related to her drinking, i.e. no DUIs, no legal problems. No suicidal ideation. Depression, unspecified Alcohol use disorder, moderate PLAN: Patient does not require inpatient psychiatric admission. She is safe to be discharged when medically cleared. Patient should continue taking her psychiatric medicines when she returns home, and continue to follow up with Dr. Corea. I recommended that she consider drinking fewer beers on a regular basis. 11/11/16 17:54 11/11/16 17:55 11/11/16 17:58
--- NOTE | 2016-11-11 19:12 | P.PN ---
Subjective This is a 51-year-old female that is admitted to the hospital with change in mental status and respiratory distress. Patient was emergently intubated in the emergency room. Patient was monitored in the intensive care unit suspicion for her change in mental status was toxic encephalopathy Patient was extubated on 11/09/2016 Patient is seen in coverage today is unremarkable 1 of supplemental oxygen was able to converse however initially stated that she took 4 tablets of Xanax and some alcohol due to problems with her significant other about 15 minutes later states that she took Ativan same amount and did not state that she was suicidal or homicidal. Patient does appear to change her stories quite frequently Denies having any headaches change in vision chest pain difficulty breathing nausea vomiting or diarrhea Drug screen initially was noted to show some antidepressants 11/11/2016 Patient is seen on the medical telemetry floor Stage to be feeling better denies having headaches blurry vision nausea vomiting diarrhea or abdominal pain. Her breathing is improved The pressure was slightly elevated today Objective - Vital Signs Vital signs: Vital Signs Temp 100.2 F H 11/11/16 14:44 Pulse 89 11/11/16 14:44 Resp 16 11/11/16 14:44 BP 131/79 11/11/16 14:44 Pulse Ox 93 L 11/11/16 14:44 Intake & Output 11/11/16 11/11/16 11/12/16 06:59 18:59 06:59 Intake Total 1225 312.5 Output Total 2435 335 Balance -1210 -22.5 Weight 101 kg 101 kg Intake: IV 1225 312.5 Magnesium Sulfate-D5w Pmx 200 1 gm In Dextrose/Water 1 100ml.bag @ 100 mls/hr IVPB Q1H [facility] Rx#: [id number] Piperacillin-Tazobactam 3 50 12.5 .375 gm In Dextrose/Water 1 50ml.bag @ 12.5 mls/hr IVPB Q8HR [facility] Rx#: [id number] Potassium Chloride 10 meq 100 Lidocaine 2% Inj 10 mg In Sodium Chloride 0.9% 100 ml @ 100 mls/hr IV Q1HR [facility] Rx#:[id number] Sodium Chloride 0.9% 1, 1175 0 000 ml @ 125 mls/hr IV . Q8H [facility] Rx#:[id number] Output: Urine 2435 335 Other: Voiding Method Indwelling Catheter Toilet # Bowel Movements 5 - Exam Physical exam Gen. appearance oriented 3 in no distress Neck is supple no JVD Lungs good air entry clear to auscultation no rhonchi or wheezing Heart S1-S2 heard regular rate and rhythm no murmurs appreciated Abdomen is soft nontender no organomegaly bowel sounds are intact Neurologically is all 4 extremities extraocular movements intact no focal strength deficits noted. Strength is 5 out of 5 Psych confabulations Skin no abnormalities appreciated - Labs CBC & Chem 7: 11/11/16 05:05 11/11/16 12:47 Labs: Abnormal Lab Results - Last 24 Hours (Table) 11/11/16 11/11/16 Range/Units 05:05 05:05 RBC 3.53 L (3.80-5.40) m/uL Hct 33.3 L (34.0-46.0) % Plt Count 138 L (150-450) k/uL Potassium 3.4 L (3.5-5.1) mmol/L Chloride 108 H (98-107) mmol/L BUN 6 L (7-17) mg/dL Microbiology - Last 24 Hours (Table) 11/08/16 01:49 Blood Culture - Preliminary Blood No Growth after 72 hours Assessment and Plan Plan: #1 acute hypoxic respiratory failure due to change in mental status from toxic encephalopathy due to medication overdose appears to be tricyclic antidepressant #2 obesity #3 ongoing tobacco use #4 underlying COPD with no acute exacerbation #5 aspiration pneumonia #6 accelerated hypertension Plan Zosyn. Continue with the thiamine replacement DC IV fluids Encourage ambulation DC clonidine Patient's lisinopril was increased to 40 mg There is no need to treat the blood pressure unless it's greater than 190 systolic
--- NOTE | 2016-11-11 21:39 | P.PN ---
Subjective Principal diagnosis: altered mental status 1-year-old female who appears older than her stated age presents to Hospital when EMS was called. The secondary transformation relates that she apparently was not acting like herself and was quite obtunded for several days. Because she was not improving EMS was called. She was intubated in the field because of her poor mental status. She was brought to our facility where she remains intubated sedated and mechanically ventilated. The daughter who comes to visit relates that she has had episodes of prior drug overdose or suicide attempts. She was wondering what her alcohol level was at admission. If any other drugs were found. She does not control her current medication list but would not be surprised if she was on try cyclic medications. Without other drugs would have more likely been involved. She does not relate that her mother uses injection drugs. Is a tobacco smoker. Patient now much improved. As noted pregnancies test is negative. Stool for C. diff is negative. Feeling considerably better. She is now awake alert oriented person place and time. Objective - Vital Signs Vital signs: Vital Signs Temp 100.2 F H 11/11/16 14:44 Pulse 89 11/11/16 14:44 Resp 16 11/11/16 14:44 BP 131/79 11/11/16 14:44 Pulse Ox 93 L 11/11/16 14:44 Intake & Output 11/11/16 11/11/16 11/12/16 06:59 18:59 06:59 Intake Total 1225 312.5 Output Total 2435 335 Balance -1210 -22.5 Weight 101 kg 101 kg Intake: IV 1225 312.5 Magnesium Sulfate-D5w Pmx 200 1 gm In Dextrose/Water 1 100ml.bag @ 100 mls/hr IVPB Q1H [facility] Rx#: [id number] Piperacillin-Tazobactam 3 50 12.5 .375 gm In Dextrose/Water 1 50ml.bag @ 12.5 mls/hr IVPB Q8HR [facility] Rx#: [id number] Potassium Chloride 10 meq 100 Lidocaine 2% Inj 10 mg In Sodium Chloride 0.9% 100 ml @ 100 mls/hr IV Q1HR [facility] Rx#:[id number] Sodium Chloride 0.9% 1, 1175 0 000 ml @ 125 mls/hr IV . Q8H [facility] Rx#:[id number] Output: Urine 2435 335 Other: Voiding Method Indwelling Catheter Toilet # Bowel Movements 5 - Exam 51-year-old woman who appears much older than stated age HEENT: Anicteric conjunctiva are pink and moist nasal mucosa grossly intact without significant lesions, there is no thrush.her on the endotr tube Neck: The neck is supple without significant lymphadenopathy or thyromegaly. Lungs: symmetrical air entry without significant crackles or wheezing. There is no significant bronchial sounds. There is no egophony or dullness. Heart: Regular rate and rhythm with an audible S1-S2, no S3 no S4. There is no significant murmur click or rub, PMI was nondisplaced. Abdomen: mildly obese,Positive bowel sounds soft nonrigid without palpable masses or organomegaly. Extremities: The upper extremities have excellent pulses they are symmetric, no significant petechiae or telangiectasia. No splinter hemorrhages were noted. The lower extremities are free from significant edema. The peripheral pulses were 2+ and symmetric. Neuro: Awake alert oriented to person place and time. Much improved. - Labs CBC & Chem 7: 11/11/16 05:05 11/11/16 12:47 Labs: Abnormal Lab Results - Last 24 Hours (Table) 11/11/16 11/11/16 Range/Units 05:05 05:05 RBC 3.53 L (3.80-5.40) m/uL Hct 33.3 L (34.0-46.0) % Plt Count 138 L (150-450) k/uL Potassium 3.4 L (3.5-5.1) mmol/L Chloride 108 H (98-107) mmol/L BUN 6 L (7-17) mg/dL Microbiology - Last 24 Hours (Table) 11/08/16 01:49 Blood Culture - Preliminary Blood No Growth after 72 hours Laboratory Results WBC 9.4 k/uL (3.8-10.6) 11/11/16 05:05 RBC 3.53 m/uL (3.80-5.40) L 11/11/16 05:05 Hgb 11.4 gm/dL (11.4-16.0) 11/11/16 05:05 Hct 33.3 % (34.0-46.0) L 11/11/16 05:05 MCV 94.5 fL (80.0-100.0) 11/11/16 05:05 MCH 32.3 pg (25.0-35.0) 11/11/16 05:05 MCHC 34.2 g/dL (31.0-37.0) 11/11/16 05:05 RDW 13.5 % (11.5-15.5) 11/11/16 05:05 Plt Count 138 k/uL (150-450) L 11/11/16 05:05 Neutrophils % 78 % 11/11/16 05:05 Lymphocytes % 14 % 11/11/16 05:05 Monocytes % 4 % 11/11/16 05:05 Eosinophils % 2 % 11/11/16 05:05 Basophils % 0 % 11/11/16 05:05 Neutrophils # 7.3 k/uL (1.3-7.7) 11/11/16 05:05 Lymphocytes # 1.3 k/uL (1.0-4.8) 11/11/16 05:05 Monocytes # 0.4 k/uL (0-1.0) 11/11/16 05:05 Eosinophils # 0.2 k/uL (0-0.7) 11/11/16 05:05 Basophils # 0.0 k/uL (0-0.2) 11/11/16 05:05 PT 11.4 sec (9.0-12.0) 11/08/16 00:44 INR 1.1 (<1.1) 11/08/16 00:44 APTT 22.2 sec (22.0-30.0) 11/08/16 00:44 Sample Site rrad 11/09/16 07:11 ABG pH 7.36 (7.35-7.45) 11/09/16 07:11 ABG pCO2 35 mmHg (35-45) 11/09/16 07:11 ABG pO2 100 mmHg (83-108) 11/09/16 07:11 ABG HCO3 19 mmol/L (21-25) L 11/09/16 07:11 ABG Total CO2 20 mmol/L (19-24) 11/09/16 07:11 ABG O2 Saturation 98.0 % (94-97) H 11/09/16 07:11 ABG Base Excess -6.0 mmol/L 11/09/16 07:11 FiO2 50 % 11/09/16 07:11 Sodium 140 mmol/L (137-145) 11/11/16 05:05 Potassium 3.9 mmol/L (3.5-5.1) 11/11/16 12:47 Chloride 108 mmol/L (98-107) H 11/11/16 05:05 Carbon Dioxide 23 mmol/L (22-30) 11/11/16 05:05 Anion Gap 9 mmol/L 11/11/16 05:05 BUN 6 mg/dL (7-17) L 11/11/16 05:05 Creatinine 0.70 mg/dL (0.52-1.04) 11/11/16 05:05 Est GFR (MDRD) Af Amer >60 (>60 ml/min/1.73 sqM) 11/11/16 05:05 Est GFR (MDRD) Non-Af >60 (>60 ml/min/1.73 sqM) 11/11/16 05:05 Glucose 92 mg/dL (74-99) 11/11/16 05:05 POC Glucose (mg/dL) 120 mg/dL (75-99) H 11/08/16 05:17 POC Glu Pharmacy Operations Specialist ID Naida Brennan 11/08/16 05:17 Plasma Lactic Acid Ender 0.9 mmol/L (0.7-2.0) 11/08/16 16:38 Calcium 8.5 mg/dL (8.4-10.2) 11/11/16 05:05 Phosphorus 4.4 mg/dL (2.5-4.5) 11/11/16 05:05 Magnesium 1.7 mg/dL (1.6-2.3) 11/11/16 05:05 Total Bilirubin 0.4 mg/dL (0.2-1.3) 11/09/16 04:13 AST 86 U/L (14-36) H 11/09/16 04:13 ALT 51 U/L (9-52) 11/09/16 04:13 Alkaline Phosphatase 78 U/L (38-126) 11/09/16 04:13 Ammonia 12 umol/L (<30) 11/08/16 01:49 Total Creatine Kinase 7826 U/L (30-135) H 11/08/16 00:44 CK-MB (CK-2) 50.1 ng/mL (0.0-2.4) H* 11/08/16 00:44 CK-MB (CK-2) Rel Index 11/08/16 00:44 Troponin I 0.035 ng/mL (0.000-0.034) H* 11/08/16 16:38 NT-Pro-B Natriuret Pep 199 pg/mL 11/08/16 00:44 Total Protein 5.4 g/dL (6.3-8.2) L 11/09/16 04:13 Albumin 2.9 g/dL (3.5-5.0) L 11/09/16 04:13 Urine Color Light Yellow 11/08/16 02:03 Urine Appearance Clear (Clear) 11/08/16 02:03 Urine pH 5.0 (5.0-8.0) 11/08/16 02:03 Ur Specific [place] 1.005 (1.001-1.035) 11/08/16 02:03 Urine Protein Negative (Negative) 11/08/16 02:03 Urine Glucose (UA) Negative (Negative) 11/08/16 02:03 Urine Ketones Negative (Negative) 11/08/16 02:03 Urine Blood Trace (Negative) H 11/08/16 02:03 Urine Nitrite Negative (Negative) 11/08/16 02:03 Urine Bilirubin Negative (Negative) 11/08/16 02:03 Urine Urobilinogen <2.0 mg/dL (<2.0) 11/08/16 02:03 Ur Leukocyte Esterase Negative (Negative) 11/08/16 02:03 Urine RBC 1 /hpf (0-5) 11/08/16 02:03 Urine HCG, Qual Not Detected (Not Detectd) 11/10/16 20:07 Urine Opiates Screen Not Detected (NotDetected) 11/08/16 02:03 Ur Oxycodone Screen Not Detected (NotDetected) 11/08/16 02:03 Urine Methadone Screen Not Detected (NotDetected) 11/08/16 02:03 Ur Propoxyphene Screen Not Detected (NotDetected) 11/08/16 02:03 Acetaminophen <10.0 ug/mL 11/08/16 01:49 Ur Barbiturates Screen Not Detected (NotDetected) 11/08/16 02:03 U Tricyclic Antidepress Detected (NotDetected) H 11/08/16 02:03 Ur Phencyclidine Scrn Not Detected (NotDetected) 11/08/16 02:03 Ur Amphetamines Screen Not Detected (NotDetected) 11/08/16 02:03 U Methamphetamines Scrn Not Detected (NotDetected) 11/08/16 02:03 U Benzodiazepines Scrn Not Detected (NotDetected) 11/08/16 02:03 Urine Cocaine Screen Not Detected (NotDetected) 11/08/16 02:03 U Marijuana (THC) Screen Not Detected (NotDetected) 11/08/16 02:03 Serum Alcohol <10 mg/dL 11/08/16 01:49 Acetone, Qual Negative (Negative) 11/08/16 00:44 C. difficile (EIA) Intrp Negative (Negative) 11/10/16 20:07 Microbiology 11/08/16 01:49 Blood Blood Culture - Preliminary No Growth after 72 hours 11/08/16 03:20 Sputum Gram Stain - Final 11/08/16 03:20 Sputum Sputum Culture - Final 11/08/16 02:03 Urine,Catheterized Urine Culture - Final Assessment and Plan (1) Altered mental status Narrative/Plan: 51-year-old woman who presents to Hospital when EMS was called because of altered mental status for several days. He has noted she required intubation in the field because of her altered mental status. The patient has had fever. As noted has abnormal chest x-ray. Likely had an aspiration event in the field. Antibiotic therapy with Zosyn has been started as an adequate choice at this point in time. Family is unable to relate any known prior infections. Would not enhance antibiotic therapy further at this time especially based on the sputum Gram stain. We'll continue ongoing supportive care. Fortunately the family does seem to be somewhat engaged to may be helpful in determining the next steps in her overall care. WBC has improved She is showing marked improvement today. Awake alert oriented to person place and time. Overall is been no recovery and possibly is at her baseline. There is concern that she had a pneumonia. Will E scriber antibiotic to our pharmacy for Augmentin so she is ready for discharge home tomorrow. Status: Acute
--- NOTE | 2016-11-12 07:10 | XR ---
EXAMINATION TYPE: XR chest 1V portable DATE OF EXAM: 11/12/2016 HISTORY: asp pneumonia. REFERENCE: Previous study dated 11/10/2016. FINDINGS: The study is quite lordotic. Heart size upper limits of normal. The lungs appear clear. The re is vascular congestion and peribronchial cuffing as well as some mild interstitial change. IMPRESSION: PLEASE CORRELATE FOR CONGESTIVE HEART FAILURE.
[2016-11-12] MEDS ORDERED: PANTOPRAZOLE 40 MG TABLET PO SCH (07:30)
[2016-11-12] MEDS: IPRATROPIUM-ALBUTEROL 3 ML NEB INHALATION PRN (07:40)
[2016-11-12 08:17] LABS: Basophils % (A) 0 %; CH 31.1; CHCM 33.1; Eosinophils # (A) 0.3 k/uL (0-0.7); Eosinophils % (A) 3 %; HCT 34.6 % (34.0-46.0); HGB 11.5 gm/dL (11.4-16.0); Luc # (Auto) 0.14; Luc % (Auto) 2; Lymphocytes % (A) 12 %; MCH 31.4 pg (25.0-35.0); MCHC 33.3 g/dL (31.0-37.0); MCV 94.3 fL (80.0-100.0); Mean Platelet Volume 7.5; Monocytes # (A) 0.4 k/uL (0-1.0); Monocytes % (A) 5 %; Neutrophils # (A) 6.2 k/uL (1.3-7.7); Neutrophils % (A) 78 %; RBC 3.67 m/uL (3.80-5.40); RDW 13.2 % (11.5-15.5)
[2016-11-12 08:26] LABS: Anion Gap 10 mmol/L; Blood Urea Nitrogen 9 mg/dL (7-17); Calcium 8.6 mg/dL (8.4-10.2); Carbon Dioxide 26 mmol/L (22-30); Chloride 108 mmol/L (98-107); Glucose 103 mg/dL (74-99); Magnesium 1.8 mg/dL (1.6-2.3); Non-African American GFR(MDRD) >60 (>60 ml/min/1.73 sqM); Phosphorous 4.8 mg/dL (2.5-4.5); Potassium 3.5 mmol/L (3.5-5.1); Sodium 144 mmol/L (137-145)
[2016-11-12] MEDS: NICOTINE 21MG/24HR PATCH TRANSDERM SCH (08:29)
[2016-11-12] MEDS: PIPERACILLIN-TAZOBACTAM 3.375 GM in DEXTROSE/WATER 1 50ML.BAG IVPB SCH (08:29)
[2016-11-12] MEDS: LISINOPRIL 20 MG TAB PO SCH (08:29)
[2016-11-12] MEDS: HEPARIN SODIUM,PORCINE 5,000 UNIT/ML 1 ML VIAL SQ SCH (08:30)
[2016-11-12] MEDS: ATENOLOL 50 MG TAB PO SCH (08:30)
[2016-11-12] MEDS ORDERED: FUROSEMIDE 10 MG/ML 2 ML VIAL IV ONE (09:04)
[2016-11-12] MEDS ORDERED: AMOXIC-POT CLAV 875-125MG 1 EACH TAB PO SCH (11:00)
--- NOTE | 2016-11-12 12:05 | P.PN ---
Subjective Principal diagnosis: Acute respiratory status failure secondary to drug overdose. And aspiration pneumonia This is a 51-year-old female with history of depression, anxiety, hypertension, patient is maintained on multiple meds including Abilify, and Paxil. She is also on lorazepam. Patient was noted by family as not acting appropriate, she was apparently found to be confused and disoriented. Family felt that the patient may have tried to commit suicide since there was evidence of 17 tablets of Ativan missing from her bottle. EMS was called, and the patient was clearly combative and restless, agitated, upon arrival to the ER, the patient was becoming more and more agitated, and she had a temp of 102. Her drug screen was only positive for tricyclics, but no evidence of any other drugs noted. While in the ER, patient had to be intubated, placed on mechanical ventilation, and transferred to the ICU early this morning. ABG post intubation showed a pO2 of 217, pCO2 of 44, pH of 7.25. Lactic acid upon admission was 2.2. Troponin was borderline elevated. WBC count was 11.6. CT of the brain showed no evidence of acute intracranial abnormality. Follow-up ABG this morning showed a pO2 of 83 pCO2 of 32 pH of 7.36. Chest x-ray showed evidence of cardiomegaly, and that she by basilar infiltrates noted as well as left perihilar infiltrate noted. Hence the possibility of aspiration is likely considered. Upon my evaluation, I adjusted the ventilator settings, I also adjusted the flow rates, tidal volumes, and the assist control rate. Patient was placed on a higher dose of propofol, and she was also placed on Dilaudid when necessary. Patient was reevaluated today on 11/09/2016, remains on mechanical ventilations, vent settings were unchanged from yesterday. Patient was earlier on propofol which I have discontinued, and chest x-ray reviewed and there is evidence of left lower lobe pneumonia, right-sided infiltrate has cleared. Labs were all reviewed. CBC is relatively normal. ABG showed a pO2 of 100 pCO2 of 35 pH of 7.36. Bicarb is 19. Renal profile is normal. Liver profile is relatively normal. Troponin is borderline elevated. Weaning parameters were also reviewed hence I will likely extubated the patient after a short trial of pressure support and CPAP. Reevaluated today on 11/10/2016, patient tolerated the extubation well, doing well overall, however she seems to be a bit confused. She thinks that she is actually at [facility]. Patient is still on the protocol for alcohol withdrawal. She was seen by psychiatry, and she was felt to be possibly delirious. Chest x-ray today showed significant improvement, and her perihilar infiltrates and left lower lobe infiltrate. Labs were reviewed, relatively normal CBC and normal electrolytes. Normal renal profile was noted. Reevaluated today on 11/11/2016, patient is doing well, much more awake and appropriate today than she was in the last couple of days. Patient is oriented 3, she has no focal neurologic deficit. Denies being short of breath, no chest pain, she is complaining of intermittent episodes of dry hacking cough. Last chest x-ray showed improvement in her pneumonia, patient remains on antibiotics in the form of Zosyn. CBC today is relatively normal. Basic metabolic profile is relatively normal except for low potassium of 3.4 being corrected as per protocol. Patient was reevaluated today on 11/12/2016, she seems to be doing quite well, asymptomatic, no shortness of breath no cough no wheezing, patient remains on Zosyn which I plan to switch to Augmentin, and possibly clear for discharge if cleared by other consultants. CBC is relatively normal. Electrolytes are normal renal profile is normal. Patient is significantly improved over the last few days. I reviewed the chest x-ray, clearly does not show evidence of congestive heart failure, and does not correlate with her clinical findings. Objective - Vital Signs Vital signs: Vital Signs Temp 98.7 F 11/12/16 07:00 Pulse 72 11/12/16 07:52 Resp 20 11/12/16 07:00 BP 149/97 11/12/16 07:00 Pulse Ox 96 11/12/16 07:00 Intake & Output 11/11/16 11/12/16 11/12/16 18:59 06:59 18:59 Intake Total 312.5 240 Output Total 335 Balance -22.5 240 Weight 101 kg 101 kg 101 kg Intake: IV 312.5 Magnesium Sulfate-D5w Pmx 200 1 gm In Dextrose/Water 1 100ml.bag @ 100 mls/hr IVPB Q1H [facility] Rx#: [id number] Piperacillin-Tazobactam 3 12.5 .375 gm In Dextrose/Water 1 50ml.bag @ 12.5 mls/hr IVPB Q8HR [facility] Rx#: [id number] Potassium Chloride 10 meq 100 Lidocaine 2% Inj 10 mg In Sodium Chloride 0.9% 100 ml @ 100 mls/hr IV Q1HR [facility] Rx#:[id number] Sodium Chloride 0.9% 1, 0 000 ml @ 125 mls/hr IV . Q8H [facility] Rx#:[id number] Oral 240 Output: Urine 335 Other: Voiding Method Toilet Toilet # Voids 1 # Bowel Movements 1 - Exam GENERAL 51-year-old female in no distress. HEENT: Pupils are round and equally reacting to light. EOMI. No scleral icterus. No conjunctival pallor. Normocephalic, atraumatic. No pharyngeal erythema. No thyromegaly. CARDIOVASCULAR: S1 and S2 present. No murmurs, rubs, or gallops. PULMONARY: Clear at the bases no crackles or rhonchi or wheezes ABDOMEN: Soft, nontender, nondistended, normoactive bowel sounds. No palpable organomegaly. MUSCULOSKELETAL: No joint swelling or deformity. EXTREMITIES: No cyanosis, clubbing, or pedal edema. NEUROLOGICAL: No gross focal neurologic deficit mental status has significantly improved in the last 2 days. - Labs CBC & Chem 7: 11/12/16 07:45 11/12/16 07:45 Labs: Abnormal Lab Results - Last 24 Hours (Table) 11/12/16 11/12/16 Range/Units 07:45 07:45 RBC 3.67 L (3.80-5.40) m/uL Chloride 108 H (98-107) mmol/L Glucose 103 H (74-99) mg/dL Phosphorus 4.8 H (2.5-4.5) mg/dL Microbiology - Last 24 Hours (Table) 11/08/16 01:49 Blood Culture - Preliminary Blood No Growth after 96 hours Assessment and Plan Plan: Impression: 1 Acute hypoxic respiratory failure requiring intubation and mechanical ventilation. Patient was extubated from mechanical ventilation on 11/09/2016. 2 strongly suspect aspiration pneumonia patient was placed on Zosyn. This will be switched to Augmentin today. 3 suspected drug overdose possibly tricyclics, further history will need to be obtained from the family, and further assessment of the bottles of Paxil at home. 4 acute mental status change significantly improved over the last few days. 5 history of depression and anxiety. 6 history of hypertension. Recommendation: Agree with discharge planning on Augmentin for the next 7 days, and follow-up on outpatient basis with Dr. Salmeron or Dr. Shell in the next 2 weeks. Time with Patient: Less than 30
[2016-11-12] MEDS: THIAMINE 100 MG TAB PO SCH ×2 (12:19→18:06)
[2016-11-12 15:47] VITALS: BP 138/93; PULSE 80; RESP 18; TEMP 98.9
--- NOTE | 2016-11-12 17:12 | P.DS ---
Providers Date of admission: 11/08/16 04:21 Attending physician: Tashia Peng Consults: 11/08/16 04:21 Consult Physician Routine Consulting Provider: Callie Mcnulty Consult Reason/Comments: minimally elevated troponin. Do you want consulting provider notified?: Yes Consult Physician Stat Consulting Provider: Ariadna Salmeron Consult Reason/Comments: altered mental status. Delirium tremens Do you want consulting provider notified?: Already Contacted 11/08/16 13:41 Consult Physician Routine Consulting Provider: Karin Pruett Consult Reason/Comments: Altered Mental Status Do you want consulting provider notified?: Yes 11/08/16 14:07 Consult Physician Routine Consulting Provider: Martín Stewart Consult Reason/Comments: mental status change and fever Do you want consulting provider notified?: Yes 11/09/16 10:35 Consult Physician Urgent Consulting Provider: Dayanna Mathias Consult Reason/Comments: possible suicide attempt. hx of 6 attempts Do you want consulting provider notified?: Already Contacted Primary care physician: Stated None Hospital Course: This is a 51-year-old female that is admitted to the hospital with change in mental status and respiratory distress. Patient was emergently intubated in the emergency room. Patient was monitored in the intensive care unit suspicion for her change in mental status was toxic encephalopathy Patient was extubated on 11/09/2016 Patient is seen in coverage today is unremarkable 1 of supplemental oxygen was able to converse however initially stated that she took 4 tablets of Xanax and some alcohol due to problems with her significant other about 15 minutes later states that she took Ativan same amount and did not state that she was suicidal or homicidal. Patient does appear to change her stories quite frequently Denies having any headaches change in vision chest pain difficulty breathing nausea vomiting or diarrhea Drug screen initially was noted to show some antidepressants 11/11/2016 Patient is seen on the medical telemetry floor Stage to be feeling better denies having headaches blurry vision nausea vomiting diarrhea or abdominal pain. Her breathing is improved The pressure was slightly elevated today 11/12/16 doing well was able to ambulate no fevers, chills, nausea, vomiting, diarrhea, chest pain - Exam Physical exam Gen. appearance oriented 3 in no distress Neck is supple no JVD Lungs good air entry clear to auscultation no rhonchi or wheezing Heart S1-S2 heard regular rate and rhythm no murmurs appreciated Abdomen is soft nontender no organomegaly bowel sounds are intact Neurologically is all 4 extremities extraocular movements intact no focal strength deficits noted. Strength is 5 out of 5 Psych confabulations Skin no abnormalities appreciated Assessment and Plan Plan: #1 acute hypoxic respiratory failure due to change in mental status from toxic encephalopathy due to medication overdose appears to be tricyclic antidepressant #2 obesity #3 ongoing tobacco use #4 underlying COPD with no acute exacerbation #5 aspiration pneumonia #6 accelerated hypertension augmentin on discharge bp stable cessation of illicit substances was discussed Patient Condition at Discharge: Critical Plan - Discharge Summary New Discharge Prescriptions: New Amoxic-Pot Clav 875-125Mg [Augmentin 875-125] 1 tab PO Q12HR #14 tablet Continue PARoxetine HCL [Paxil] 40 mg PO DAILY Lisinopril 40 mg PO DAILY LORazepam [Ativan] 0.5 mg PO DAILY Fluticasone Nasal [place]eda [Flonase Nasal Reseda] 2 spr EA NOSTRIL DAILY Atenolol [Tenormin] 50 mg PO DAILY ARIPiprazole [Abilify] 2 mg PO DAILY Discharge Medication List ARIPiprazole [Abilify] 2 mg PO DAILY 11/08/16 [History] Atenolol [Tenormin] 50 mg PO DAILY 11/08/16 [History] Fluticasone Nasal [place] [Flonase Nasal [place]eda] 2 spr EA NOSTRIL DAILY 11/08/16 [ History] LORazepam [Ativan] 0.5 mg PO DAILY 11/08/16 [History] Lisinopril 40 mg PO DAILY 11/08/16 [History] PARoxetine HCL [Paxil] 40 mg PO DAILY 11/08/16 [History] Amoxic-Pot Clav 875-125Mg [Augmentin 875-125] 1 tab PO Q12HR #14 tablet [Rx] Follow up Appointment(s)/Referral(s): Martin Brown MD [STAFF PHYSICIAN] - 1 Week None,Stated [Primary Care Provider] - 1-2 days Discharge Disposition: HOME SELF-CARE
== END 2016-11-12 18:10 | disposition home or self-care (01) | DRG 917 ==
LOC: EC 00:27 → 6ICU 04:21 → 4MS4W 11-11 11:38
PROVIDERS: ADMIT Hospitalist; ATTEND Hospitalist
PROC: 5A1945Z Respiratory Ventilation, 24-96 Consecutive Hours (ICD-10-PCS; principal; 2016-11-08)
PROC: 0BH17EZ Insertion of Endotracheal Airway into Trachea, Via Natural or Artificial Opening (ICD-10-PCS; 2016-11-08)
PROC: 0D9670Z Drainage of Stomach with Drainage Device, Via Natural or Artificial Opening (ICD-10-PCS; 2016-11-08)
DX: T43.012A Poisoning by tricyclic antidepressants, intentional self-harm, initial encounter (principal); J96.01 Acute respiratory failure with hypoxia; J69.0 Pneumonitis due to inhalation of food and vomit; A41.9 Sepsis, unspecified organism; G92 Toxic encephalopathy; D69.6 Thrombocytopenia, unspecified; J38.4 Edema of larynx; J44.9 Chronic obstructive pulmonary disease, unspecified; F32.9 Major depressive disorder, single episode, unspecified; F41.9 Anxiety disorder, unspecified; F10.10 Alcohol abuse, uncomplicated; I10 Essential (primary) hypertension; E66.9 Obesity, unspecified; I51.7 Cardiomegaly; F17.200 Nicotine dependence, unspecified, uncomplicated; Z91.5 Personal history of self-harm; Z79.899 Other long term (current) drug therapy; Y92.009 Unspecified place in unspecified non-institutional (private) residence as the place of occurrence of the external cause
CPT/HCPCS: 36415; 36600; 70450; 71010; 80048; 80053; 80306; 80320; 81001; 81025; 82009; 82140; 82550; 82553; 82805; 83520; 83605; 83735; 83880; 84100; 84132; 84484; 85025; 85610; 85730; 87040; 87070; 87086; 87205; 87324; 93005; 93306; 94002; 94003; 94640; 95819; 96365; 96366; 96367; 96375; 96376; 99285

== ENCOUNTER → 2016-11-29 | Outpatient (CLI) | payer OTHER ==
--- NOTE | 2016-12-01 14:26 | P.ARTDOP ---
Arterial Doppler LOWER EXTREMITY ARTERIAL DOPPLER: DATE OF SERVICE: 11/29/2016 Reason for study: Bilateral leg pain. Doppler waveforms: Multiphasic bilaterally throughout. Pulse volume recording: Normal configuration. Pressure gradients: None. Ankle-brachial indices: Greater than 1 bilaterally. Toe pressures: 83 on the right, 100 on the left Impression: Normal study.
== END | disposition home or self-care (01) ==
LOC: RADUSWWP 09:32
PROVIDERS: ATTEND Internal Medicine
DX: M79.604 Pain in right leg (principal); M79.605 Pain in left leg
CPT/HCPCS: 93923

== ENCOUNTER 2018-04-09 06:40 | Emergency (ER) | payer OTHER ==
[2018-04-09] MEDS ORDERED: DIPH,PERTUS(ACELL)TETVAC-LF 0.5 ML VIAL IM ONE (07:17)
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
[2018-04-09] MEDS ORDERED: TOPICAL SKIN ADHESIVE 1 EACH AMP TOPICAL ONE (08:05)
[2018-04-09 08:19] VITALS: RESP 20
--- NOTE | 2018-04-09 08:43 | CT ---
EXAM: CT Head Without Intravenous Contrast. CLINICAL HISTORY: Pain. TECHNIQUE: Axial computed tomography images of the head/brain without intravenous contrast. CTDI is 49 mGy and DLP is 1066 mGy-cm. This CT exam was performed using one or more of the following dose reduction techniques: automated exposure control, adjustment of the mA and/or kV according to patient size, and/or use of iterative reconstruction technique. COMPARISON: 11/08/16 FINDINGS: Brain: Unremarkable. No hemorrhage. No significant white matter disease. No edema. Ventricles: Unremarkable. No ventriculomegaly. Bones: No acute fracture. Sinuses: Unremarkable as visualized. No acute sinusitis. Mastoid air cells: Unremarkable as visualized. No mastoid effusion. IMPRESSION: Normal head/brain.
[2018-04-09 08:58] VITALS: BP 111/62; PULSE 79; TEMP 98
== END 2018-04-09 08:58 | disposition home or self-care (01) ==
LOC: EC 06:40
DX: S01.81XA Laceration without foreign body of other part of head, initial encounter (principal); S01.21XA Laceration without foreign body of nose, initial encounter; F32.9 Major depressive disorder, single episode, unspecified; F41.9 Anxiety disorder, unspecified; Z23 Encounter for immunization; Z79.899 Other long term (current) drug therapy; Z88.5 Allergy status to narcotic agent; Y04.2XXA Assault by strike against or bumped into by another person, initial encounter; Y92.009 Unspecified place in unspecified non-institutional (private) residence as the place of occurrence of the external cause
CPT/HCPCS: 12011; 70450; 90471; 90715; 99284

== ENCOUNTER 2023-06-04 01:39 | Emergency (ER) | payer OTHER ==
--- NOTE | 2023-06-04 01:58 | ED ---
General Adult HPI - General Chief complaint: Chest Pain Stated complaint: Chest pain Time Seen by Provider: 06/04/23 01:40 Source: patient, EMS, RN notes reviewed, old records reviewed Mode of arrival: EMS Limitations: no limitations - History of Present Illness Initial comments: 58-year-old female presenting for evaluation of anxiety, depression, and chest discomfort. Patient states the chest discomfort has been ongoing for many months. She states she is out of her medication and has no one to help her fill out her Medicare forms. Patient denies associated nausea or vomiting, no dyspnea, patient was given aspirin and nitroglycerin by paramedics during transport. - Related Data Home Medications Medication Instructions Recorded Confirmed ARIPiprazole [Abilify] 2 mg PO DAILY 11/08/16 11/08/16 Fluticasone Nasal [place] [Flonase 2 spr EA NOSTRIL DAILY 11/08/16 11/08/16 Nasal [place]] LORazepam [Ativan] 0.5 mg PO DAILY 11/08/16 11/08/16 PARoxetine HCL [Paxil] 40 mg PO DAILY 11/08/16 11/08/16 atenoloL [Tenormin] 50 mg PO DAILY 11/08/16 11/08/16 lisinopriL 40 mg PO DAILY 11/08/16 11/08/16 Previous Rx's Medication Instructions Recorded Amoxic-Pot Clav 875-125Mg 1 tab PO Q12HR #14 tablet 11/11/16 [Augmentin 875-125] Allergies Allergy/AdvReac Type Severity Reaction Status Date / Time codeine Allergy Rash/Hives Verified 06/04/23 01:45 Review of Systems ROS Statement: Those systems with pertinent positive or pertinent negative responses have been documented in the HPI. ROS Other: All systems not noted in ROS Statement are negative. Past Medical History Past Medical History: Hypertension, Myocardial Infarction ([place]), Pneumonia Additional Past Medical History / Comment(s): Depression and Anxiety. History of Any Multi-Drug Resistant Organisms: Unobtainable Past Surgical History: No Surgical Hx Reported Past Anesthesia/Blood Transfusion Reactions: No Reported Reaction Past Psychological History: Unable to Obtain Smoking Status: Current every day smoker Past Alcohol Use History: Unable to Obtain Past Drug Use History: Prescription Drug Abuse General Exam General appearance: alert, appears intoxicated Head exam: Present: atraumatic, normocephalic Eye exam: Present: normal appearance, PERRL ENT exam: Present: normal exam Neck exam: Present: normal inspection Respiratory exam: Present: normal lung sounds bilaterally. Absent: respiratory distress, wheezes Cardiovascular Exam: Present: regular rate, normal rhythm GI/Abdominal exam: Present: soft. Absent: distended, tenderness Extremities exam: Present: normal inspection Neurological exam: Present: alert, oriented X3, CN II-XII intact. Absent: motor sensory deficit Psychiatric exam: Present: anxious. Absent: suicidal ideation Skin exam: Present: warm, dry, intact. Absent: cyanosis, diaphoretic Course Vital Signs 06/04/23 06/04/23 06/04/23 01:40 03:45 04:00 Temperature 98.2 F Pulse Rate 82 61 60 Respiratory 20 18 18 Rate Blood Pressure 159/121 141/100 152/96 O2 Sat by Pulse 100 98 98 Oximetry Medical Decision Making - Medical Decision Making Was pt. sent in by a medical professional or institution (, PA, CLAY MINE CUTTING MACHINE OPERATOR, urgent care, hospital, or longterm...) When possible be specific @ -[No] Did you speak to anyone other than the patient for history (EMS, parent, family, police, friend...)? What history was obtained from this source @ -[No] Did you review nursing and triage notes (agree or disagree)? Why? @ -[I reviewed and agree with nursing and triage notes] Were old charts reviewed (outside hosp., previous admission, EMS record, old EKG, old radiological studies, urgent care reports/EKG's, longterm records)? Report findings @ -[No old charts were reviewed] Differential Diagnosis (chest pain, altered mental status, abdominal pain women, abdominal pain men, vaginal bleeding, weakness, fever, dyspnea, syncope, headache, dizziness, GI bleed, back pain, seizure, CVA, palpatations, mental health, musculoskeletal)? @ -[Differential Mental Health Depression, anxiety, bipolar, psychosis, schizophrenia, borderline personality, situational depression, adjustment disorder, behavioral disorder, brain tumor, malingering, substance abuse, encephalopathy, medication reaction, dementia, hypothyroidism, degenerative neurologic disorder, lupus.... This is not meant to be all-inclusive list EKG interpreted by me (3pts min.). @ -[rhythm rate of 83, MO interval 152, QRS dura@[employer] 103, QTc [address] segment elevation. X-rays interpreted by me (1pt min.). Chest x-ray negative for acute cardiopulmonary findings CT interpreted by me (1pt min.). @ -[None done] U/S interpreted by me (1pt. min.). @ -[None done] What testing was considered but not performed or refused? (CT, X-rays, U/S, labs)? Why? @ -[None] What meds were considered but not given or refused? Why? @ -[None] Did you discuss the management of the patient with other professionals (professionals i.e. , PA, CLAY MINE CUTTING MACHINE OPERATOR, lab, RT, psych nurse, psychologist social, medical professionals, teacher, guest services officer, home health care case manager)? Give summary @ -[No] Was smoking cessation discussed for >3mins.? @ -[No] Was critical care preformed (if so, how long)? @ -[No] Were there social determinants of health that impacted care today? How? (H omelessness, low income, unemployed, alcoholism, drug addiction, transportation, low edu. Level, literacy, decrease access to med. care, shelter, rehab)? @ -[No] Was there de-escalation of care discussed even if they declined (Discuss DNR or withdrawal of care, Hospice)? DNR status @ -[No] What co-morbidities impacted this encounter? (DM, HTN, Smoking, COPD, CAD, Cancer, CVA, ARF, Chemo, Hep., AIDS, mental health diagnosis, sleep apnea, morbid obesity)? @ -Hypertension Was patient admitted / discharged? Hospital course, mention meds given and route, prescriptions, significant lab abnormalities, going to OR and other pertinent info. @ -[58-year-old female with multiple complaints, patient is homeless, she complained of chest pain which has been ongoing. No current pain at the time my evaluation. EKG is sinus rhythm without ST segment changes. She has normal chest x-ray, normal laboratory testing. She does request information about local shelters. She is eager for discharge. She is not suicidal or homicidal. Undiagnosed new problem with uncertain prognosis? @ -[No] Drug Therapy requiring intensive monitoring for toxicity (Heparin, Nitro, Insulin, Cardizem)? @ -[No] Were any procedures done? @ -[No] Diagnosis/symptom? @Homeless, chest discomfort Acute, or Chronic, or Acute on Chronic? @Acute Uncomplicated (without systemic symptoms) or Complicated (systemic symptoms)? @ -[default] Side effects of treatment? @ -[No] Exacerbation, Progression, or Severe Exacerbation? @ -[No] Poses a threat to life or bodily function? How? (Chest pain, [place], [place], pneumonia, PE, COPD, DKA, ARF, appy, cholecystitis, CVA, Diverticulitis, Homicidal, Suicidal, threat to staff... and all critical care pts) @ -Low risk at this time - Lab Data Result diagrams: 06/04/23 01:49 06/04/23 01:49 Lab Results 06/04/23 06/04/23 06/04/23 Range/Units 01:49 01:49 01:49 WBC 8.4 (3.8-10.6) k/uL RBC 4.33 (3.80-5.40) m/uL Hgb 13.1 (11.4-16.0) gm/dL Hct 38.5 (34.0-46.0) % MCV 89.0 (80.0-100.0) fL MCH 30.2 (25.0-35.0) pg MCHC 34.0 (31.0-37.0) g/dL RDW 13.6 (11.5-15.5) % Plt Count 227 (150-450) k/uL MPV 7.9 Neutrophils % 58 % Lymphocytes % 32 % Monocytes % 4 % Eosinophils % 4 % Basophils % 0 % Neutrophils # 4.9 (1.3-7.7) k/uL Lymphocytes # 2.6 (1.0-4.8) k/uL Monocytes # 0.4 (0-1.0) k/uL Eosinophils # 0.3 (0-0.7) k/uL Basophils # 0.0 (0-0.2) k/uL PT 10.8 (10.0-12.5) sec INR 1.0 (<1.2) APTT 24.5 (22.0-30.0) sec Sodium 137 (137-145) mmol/L Potassium 3.4 L (3.5-5.1) mmol/L Chloride 108 H (98-107) mmol/L Carbon Dioxide 19 L (22-30) mmol/L Anion Gap 10 mmol/L BUN 14 (7-17) mg/dL Creatinine 1.02 (0.52-1.04) mg/dL Est GFR (CKD-EPI)AfAm 70 (>60 ml/min/1.73 sqM) Est GFR (CKD-EPI)NonAf 61 (>60 ml/min/1.73 sqM) Glucose 101 H (74-99) mg/dL Calcium 9.0 (8.4-10.2) mg/dL Magnesium 1.8 (1.6-2.3) mg/dL Total Bilirubin 0.3 (0.2-1.3) mg/dL AST 21 (14-36) U/L ALT 16 (4-34) U/L Alkaline Phosphatase 76 (38-126) U/L Troponin I (0.000-0.034) ng/mL NT-Pro-B Natriuret Pep 546 pg/mL Total Protein 7.4 (6.3-8.2) g/dL Albumin 4.4 (3.5-5.0) g/dL Lipase 242 (23-300) U/L Serum Alcohol 76 mg/dL 06/04/23 Range/Units 01:49 WBC (3.8-10.6) k/uL RBC (3.80-5.40) m/uL Hgb (11.4-16.0) gm/dL Hct (34.0-46.0) % MCV (80.0-100.0) fL MCH (25.0-35.0) pg MCHC (31.0-37.0) g/dL RDW (11.5-15.5) % Plt Count (150-450) k/uL MPV Neutrophils % % Lymphocytes % % Monocytes % % Eosinophils % % Basophils % % Neutrophils # (1.3-7.7) k/uL Lymphocytes # (1.0-4.8) k/uL Monocytes # (0-1.0) k/uL Eosinophils # (0-0.7) k/uL Basophils # (0-0.2) k/uL PT (10.0-12.5) sec INR (<1.2) APTT (22.0-30.0) sec Sodium (137-145) mmol/L Potassium (3.5-5.1) mmol/L Chloride (98-107) mmol/L Carbon Dioxide (22-30) mmol/L Anion Gap mmol/L BUN (7-17) mg/dL Creatinine (0.52-1.04) mg/dL Est GFR (CKD-EPI)AfAm (>60 ml/min/1.73 sqM) Est GFR (CKD-EPI)NonAf (>60 ml/min/1.73 sqM) Glucose (74-99) mg/dL Calcium (8.4-10.2) mg/dL Magnesium (1.6-2.3) mg/dL Total Bilirubin (0.2-1.3) mg/dL AST (14-36) U/L ALT (4-34) U/L Alkaline Phosphatase (38-126) U/L Troponin I <0.012 (0.000-0.034) ng/mL NT-Pro-B Natriuret Pep pg/mL Total Protein (6.3-8.2) g/dL Albumin (3.5-5.0) g/dL Lipase (23-300) U/L Serum Alcohol mg/dL Disposition Clinical Impression: History of alcohol abuse, Chest pain Disposition: HOME SELF-CARE Condition: Fair Instructions (If sedation given, give patient instructions): Chest Pain (ED) Additional Instructions: Please follow-up with your primary care provider. You have been given a list of local homeless shelters. Is patient prescribed a controlled substance at d/c from ED?: No Referrals: Jorge Luis Ruggiero MD [Primary Care Provider] - 1-2 days Time of Disposition: 06:01
[2023-06-04 02:01] LABS: Basophils % (A) 0 %; Eosinophils # (A) 0.3 k/uL (0-0.7); Eosinophils % (A) 4 %; HCT 38.5 % (34.0-46.0); HGB 13.1 gm/dL (11.4-16.0); Lymphocytes # (A) 2.6 k/uL (1.0-4.8); Lymphocytes % (A) 32 %; MCH 30.2 pg (25.0-35.0); Mean Platelet Volume 7.9; Monocytes # (A) 0.4 k/uL (0-1.0); Monocytes % (A) 4 %; Neutrophils # (A) 4.9 k/uL (1.3-7.7); Neutrophils % (A) 58 %; Platelet Count 227 k/uL (150-450); RBC 4.33 m/uL (3.80-5.40); RDW 13.6 % (11.5-15.5); WBC 8.4 k/uL (3.8-10.6)
[2023-06-04 02:10] LABS: Partial Thromboplastin Time 24.5 sec (22.0-30.0); Prothrombin Time 10.8 sec (10.0-12.5)
[2023-06-04 02:38] LABS: ALT 16 U/L (4-34); AST 21 U/L (14-36); African American GFR (CKD) 70 (>60 ml/min/1.73 sqM); Albumin 4.4 g/dL (3.5-5.0); Alcohol 76 mg/dL; Alkaline Phosphatase 76 U/L (38-126); Anion Gap 10 mmol/L; Blood Urea Nitrogen 14 mg/dL (7-17); Carbon Dioxide 19 mmol/L (22-30); Chloride 108 mmol/L (98-107); Glucose 101 mg/dL (74-99); Lipase 242 U/L (23-300); Magnesium 1.8 mg/dL (1.6-2.3); Non-African American GFR(CKD) 61 (>60 ml/min/1.73 sqM); Potassium 3.4 mmol/L (3.5-5.1); Sodium 137 mmol/L (137-145); Total Bilirubin 0.3 mg/dL (0.2-1.3); Total Protein 7.4 g/dL (6.3-8.2)
[2023-06-04 02:46] LABS: NT-Pro-B-Type Natriuretic Pept 546 pg/mL
--- NOTE | 2023-06-04 02:52 | XR ---
EXAM: XR Chest, 2 Views CLINICAL HISTORY: ITS.REASON XR Reason: Chest Pain TECHNIQUE: Frontal and lateral views of the chest. COMPARISON: 03/17/2020. FINDINGS: Lungs: Unremarkable. No consolidative changes. Pleural space: Unremarkable. No pneumothorax. No pleural effusions. Heart: Mild cardiomegaly. Mediastinum: Unremarkable. Normal mediastinal contour. Bones/joints: Osseous structures are unremarkable. Dextro scoliosis. No acute fracture. Other findings: Hypoaeration. IMPRESSION: 1. Hypoaeration. 2. Mild cardiomegaly.
[2023-06-04 05:53] VITALS: RESP 18
[2023-06-04 06:48] VITALS: BP 149/80; PULSE 64; TEMP 98.3
== END 2023-06-04 06:37 | disposition home or self-care (01) ==
LOC: EC 01:39
DX: R07.89 Other chest pain (principal); I10 Essential (primary) hypertension; F32.A Depression, unspecified; I25.2 Old myocardial infarction; F41.9 Anxiety disorder, unspecified; F17.200 Nicotine dependence, unspecified, uncomplicated; F19.10 Other psychoactive substance abuse, uncomplicated; Z59.00 Homelessness unspecified; Z79.899 Other long term (current) drug therapy; Z88.5 Allergy status to narcotic agent; Z86.59 Personal history of other mental and behavioral disorders
CPT/HCPCS: 36415; 93005; 83880; 80053; 83690; 83735; 84484; 85025; 85610; 85730; 71046; 99285; G0480; 80320